=== PATIENT | female | born 1950 | race Caucasian/White ===

== ENCOUNTER → 2018-09-10 | Outpatient (CLI) | payer MEDICARE, OTHER ==
[~2018-09-10] MED LIST: AMLODIPINE BESY10 MG PO; ASPIRIN CHEW81 MG PO; ASPIRIN325 MG PO; COREG3.125 MG PO; COZAAR25 MG PO; DITROPAN XL5 MG PO; FENOFIBRATE145 MG PO; IRBESARTAN300 MG PO; LEVAQUIN500 MG PO; LEVEMIR100 UNIT/1 SQ; LIPITOR20 MG PO; METFORMIN HCL500 MG PO; NORVASC5 MG PO; NOVOLOG MI100 UNITS/ SQ; NOVOLOG100 UNIT/1 SC; PLAVIX75 MG PO; TYLENOL WITH C1 EACH PO; ZOFRAN ODT4 MG PO
--- NOTE | 2018-09-18 08:15 | Diagnostic Imaging Report ---
#[id number] - [id number] #BILATERAL DIGITAL SCREENING MAMMOGRAM WITH CAD: 09/10/2018 CLINICAL: Routine screening. Comparison is made to exam dated: 09/10/2013 mammogram - [facility] (Formerly [facility]). Current study contains 8 films. There are scattered fibroglandular elements in both breasts. Current study was also evaluated with a Computer Aided Detection (CAD) system. There is an irregular asymmetry in the right breast at 1 o'clock middle depth. This is best noted on the implant displacement views. The implants appear intact. Scattered benign appearing calcifications are present bilaterally. No other significant masses, calcifications, or other findings are seen in either breast. IMPRESSION: INCOMPLETE: NEEDS ADDITIONAL IMAGING EVALUATION The irregular asymmetry in the right breast is indeterminate. Additional views with possible ultrasound are recommended. The patient will be contacted by the Mammography Department to schedule this appointment. Magdi Shah Jr., D.O. cw/:09/17/2018 14:00:01 Lunch Counter Manager: Violette CHAPIN)(Princess), [facility] letter sent: Additional Imaging Needed Mammogram BI-RADS: 0 Indeterminate
== END ==
LOC: MAMMO 09:06
PROVIDERS: ATTEND Obstetrics & Gynecology
DX: Z12.31 Encounter for screening mammogram for malignant neoplasm of breast (principal)
CPT/HCPCS: 77067

== ENCOUNTER → 2018-10-10 | Outpatient (CLI) | payer MEDICARE, OTHER ==
--- NOTE | 2018-10-11 08:28 | Diagnostic Imaging Report ---
#[id number] - [id number] #UNILATERAL RIGHT DIGITAL DIAGNOSTIC MAMMOGRAM WITH SPOT COMPRESSION: 10/10/2018 Comparison is made to exam dated: 09/10/2018 mammogram - [facility]. Current study contains 2 films. There are scattered fibroglandular elements in the right breast. There are benign calcifications in the right breast. The density previously described appears to press out. No mass seen. No significant masses, calcifications, or other findings are seen in the breast. There has been no significant interval change. IMPRESSION: BENIGN There is no mammographic evidence of malignancy. A 1 year screening mammogram is recommended. The patient will be notified by letter of the results. Magdi Shah Jr., D.O. cw/:10/10/2018 12:33:36 [place]: Violette MATTHEWS(R)(M), [facility] letter sent: Normal Exam Mammogram BI-RADS: 2 Benign
== END ==
LOC: MAMMO 08:20
PROVIDERS: ATTEND Obstetrics & Gynecology
DX: N64.89 Other specified disorders of breast (principal)

== ENCOUNTER 2020-06-07 19:47 | Inpatient (IN) | payer MEDICARE, OTHER ==
[~2020-06-07] VITALS: Ht 152.4 cm; Wt 77.1 kg
[2020-06-07 20:15] LABS: BASOPHILS % 0.9 % (0.0-1.0); EOSINOPHILS # (AUTO) 0.1 (0.0-0.4); EOSINOPHILS % 2.1 % (0.0-6.0); HEMATOCRIT 38.5 % (34.2-44.1); HEMOGLOBIN 12.8 g/dL (12.0-16.0); LYMPHOCYTES # (AUTO) 0.9 (1.0-3.2); LYMPHOCYTES % 21.1 % (18.0-39.1); MEAN CORPUSCULAR HEMOGLOBIN 28.8 pg (28-32); MEAN CORPUSCULAR HGB CONC 33.2 g/dL (31-35); MEAN CORPUSCULAR VOLUME 86.5 fL (81-99); MONOCYTES # (AUTO) 0.4 (0.2-0.8); MONOCYTES % 9.9 % (4.4-11.3); NEUTROPHILS # (AUTO) 2.8 (2.1-6.9); NEUTROPHILS % 64.9 % (38.7-80.0); PLATELET COUNT 243 x10e3/uL (140-360); RED BLOOD COUNT 4.45 x10e6/uL (3.6-5.1); RED CELL DISTRIBUTION WIDTH 14.2 % (11.7-14.4)
[2020-06-07] MEDS ORDERED: NITROGLYCERIN 2% OINT 1 GM PKT TOP ONE (20:15)
[2020-06-07] MEDS ORDERED: ASPIRIN 81 MG CHEW TAB PO ONE (20:15)
[2020-06-07 20:29] LABS: INR 0.78; PARTIAL THROMBOPLASTIN TIME 27.5 seconds (23.8-35.5); PROTHROMBIN TIME 11.3 seconds (11.9-14.5)
--- NOTE | 2020-06-07 20:36 | Emergency Department Note ---
History of Present Illnes History of Present Illness Chief Complaint: Chest Pain History of Present Illness This is a 69 year old female PT AAOX3 PRESENTS TO THE ER C/O NON- RADIATING MIDSTERNAL CP ONSET THIS EVENING AFTER WAKING UP FROM NAP AROUND 1800; PT ALSO REPORTS SOB " FOR AWHILE"; PT REPORTS PAIN 5/10; NAD NOTED AT THIS TIME;. Historian: Patient Arrival Mode: Car Bread Racker Required: No Onset (how long ago): hour(s) (2) Location: CHEST Quality: PAIN Radiation: Reports non-radiation Severity: moderate (5/10) Onset quality: sudden Duration (how long): hour(s) (2) Timing of current episode: constant Progression: unchanged Chronicity: new Context: Denies recent illness, Denies recent surgery, Denies trauma/injury Relieving factors: none Exacerbating factors: none Associated symptoms: Reports denies other symptoms, Reports shortness of breath (FOR LAST COUPLE OF WEEKS) Past Medical/Family History Physician Review I have reviewed the patient's past medical and family history. Any updates have been documented here. Past Medical History Recent Fever: No Clinical Suspicion of Infectio: No New/Unexplained Change in Ment: No Past Medical History: Hypertension, Diabetes, UT, CAD, GERD, Hyperlipedemia Other Medical History: UT X2 Other Surgery: CARPAL TUNNEL LAP BAND CARDIAC STENT X2 Social History Smoking Cessation: Never Smoker Alcohol Use: None Any Illegal Drug Use: No Family History Family history of heart diseas: Yes Other family history HTN,DM,CAD Other Last Tetanus: UNK Review of Systems Review of Systems Constitutional: Reports no symptoms EENTM: Reports no symptoms Cardiovascular: Reports as per HPI Respiratory: Reports as per HPI Gastrointestinal: Reports no symptoms Genitourinary: Reports no symptoms Musculoskeletal: Reports no symptoms Integumentary: Reports no symptoms Neurological: Reports no symptoms Psychological: Reports no symptoms Endocrine: Reports no symptoms Hematological/Lymphatic: Reports no symptoms Physical Exam Related Data Allergies: Coded Allergies: No Known Allergies (Unverified , 05/06/11) Triage Vital Signs Vital Signs Date Time Temp Pulse Resp B/P (MAP) Pulse Ox O2 Delivery O2 Flow Rate FiO2 06/07/20 19:58 98.7 101 20 230/109 98 Room Air Vital signs reviewed: Yes Physical Exam CONSTITUTIONAL Constitutional: Present well-developed, Present well-nourished HENT HENT: Present normocephalic, Present atraumatic, Present oropharynx clear/moist, Present nose normal HENT L/R: Present left ext ear normal, Present right ext ear normal EYES Eyes: Reports PERRL, Reports conjunctivae normal NECK Neck: Present ROM normal PULMONARY Pulmonary: Present effort normal, Present breath sounds normal CARDIOVASCULAR Cardiovascular: Present regular rhythm, Present heart sounds normal, Present capillary refill normal, Present normal rate GASTROINTESTINAL Abdominal: Present soft, Present nontender, Present bowel sounds normal GENITOURINARY Genitourinary: Present exam deferred SKIN Skin: Present warm, Present dry MUSCULOSKELETAL Musculoskeletal: Present ROM normal NEUROLOGICAL Neurological: Present alert, Present oriented x 3, Present no gross motor or sensory deficits PSYCHOLOGICAL Psychological: Present mood/affect normal, Present judgement normal Results Laboratory Result Diagram: 06/07/202008 Laboratory Laboratory Tests Test 06/07/20 20:09 White Blood Count 4.36 x10e3/uL (4.8-10.8) Red Blood Count 4.45 x10e6/uL (3.6-5.1) Hemoglobin 12.8 g/dL (12.0-16.0) Hematocrit 38.5 % (34.2-44.1) Mean Corpuscular Volume 86.5 fL (81-99) Mean Corpuscular Hemoglobin 28.8 pg (28-32) Mean Corpuscular Hemoglobin Concent 33.2 g/dL (31-35) Red Cell Distribution Width 14.2 % (11.7-14.4) Platelet Count 243 x10e3/uL (140-360) Neutrophils (%) (Auto) 64.9 % (38.7-80.0) Lymphocytes (%) (Auto) 21.1 % (18.0-39.1) Monocytes (%) (Auto) 9.9 % (4.4-11.3) Eosinophils (%) (Auto) 2.1 % (0.0-6.0) Basophils (%) (Auto) 0.9 % (0.0-1.0) Neutrophils # (Auto) 2.8 (2.1-6.9) Lymphocytes # (Auto) 0.9 (1.0-3.2) Monocytes # (Auto) 0.4 (0.2-0.8) Eosinophils # (Auto) 0.1 (0.0-0.4) Basophils # (Auto) 0.0 (0.0-0.1) Absolute Immature Granulocyte (auto 0.05 x10e3/uL (0-0.1) Prothrombin Time 11.3 seconds (11.9-14.5) Prothromb Time International Ratio 0.78 Activated Partial Thromboplast Time 27.5 seconds (23.8-35.5) Sodium Level 141 mmol/L (136-145) Potassium Level 4.4 mmol/L (3.5-5.1) Chloride Level 107 mmol/L (98-107) Carbon Dioxide Level 19 mmol/L (22-29) Anion Gap 19.4 mmol/L (8-16) Blood Urea Nitrogen 38 mg/dL (7-26) Creatinine 1.38 mg/dL (0.57-1.11) Estimat Glomerular Filtration Rate 38 ML/MIN (60-) BUN/Creatinine Ratio 28 (6-25) Glucose Level 182 mg/dL (74-118) Calcium Level 11.1 mg/dL (8.4-10.2) Total Bilirubin 0.3 mg/dL (0.2-1.2) Aspartate Amino Transf (AST/SGOT) 15 IU/L (5-34) Alanine Aminotransferase (ALT/SGPT) 9 IU/L (0-55) Alkaline Phosphatase 105 IU/L (40-150) Creatine Kinase 107 IU/L (29-168) Creatine Kinase MB 2.00 ng/mL (0-5.0) Troponin I 0.033 ng/mL (0-0.300) B-Type Natriuretic Peptide 37.3 pg/mL (0-100) Total Protein 8.1 g/dL (6.5-8.1) Albumin 4.7 g/dL (3.5-5.0) Globulin 3.4 g/dL (2.3-3.5) Albumin/Globulin Ratio 1.4 (0.8-2.0) Laboratory Tests Test 06/07/20 20:09 White Blood Count 4.36 x10e3/uL (4.8-10.8) Red Blood Count 4.45 x10e6/uL (3.6-5.1) Hemoglobin 12.8 g/dL (12.0-16.0) Hematocrit 38.5 % (34.2-44.1) Mean Corpuscular Volume 86.5 fL (81-99) Mean Corpuscular Hemoglobin 28.8 pg (28-32) Mean Corpuscular Hemoglobin Concent 33.2 g/dL (31-35) Red Cell Distribution Width 14.2 % (11.7-14.4) Platelet Count 243 x10e3/uL (140-360) Neutrophils (%) (Auto) 64.9 % (38.7-80.0) Lymphocytes (%) (Auto) 21.1 % (18.0-39.1) Monocytes (%) (Auto) 9.9 % (4.4-11.3) Eosinophils (%) (Auto) 2.1 % (0.0-6.0) Basophils (%) (Auto) 0.9 % (0.0-1.0) Neutrophils # (Auto) 2.8 (2.1-6.9) Lymphocytes # (Auto) 0.9 (1.0-3.2) Monocytes # (Auto) 0.4 (0.2-0.8) Eosinophils # (Auto) 0.1 (0.0-0.4) Basophils # (Auto) 0.0 (0.0-0.1) Absolute Immature Granulocyte (auto 0.05 x10e3/uL (0-0.1) Lab results reviewed: Yes Imaging Imaging results reviewed: Yes Impressions Procedure: [id number] DX/CHEST SINGLE (PORTABLE) Exam Date: Exam Time: REPORT STATUS: Signed EXAMINATION: CHEST SINGLE (PORTABLE) INDICATION: ^chest pain ^Y COMPARISON: None available. FINDINGS: AP view TUBES and LINES: None. LUNGS: Lungs are well inflated. There is no evidence of pneumonia or pulmonary edema. PLEURA: No pleural effusion or pneumothorax. HEART AND MEDIASTINUM: The cardiomediastinal silhouette is unremarkable. BONES AND SOFT TISSUES: No acute osseous lesion. Soft tissues are unremarkable. UPPER ABDOMEN: No free air under the diaphragm. IMPRESSION: No acute thoracic abnormality. Signed by: Dr. Henri Dennis MD on 06/07/2020 8:41 PM Dictated By: HENRI DENNIS MD 40 Transcribed By: MIS on 06/07/202040 COPY TO: AREN DANIELS MD~ Procedures 12 Lead ECG Interpretation ECG Interpretation : ECG: ECG 1 Bread Racker: Interpreted by ED physician Date: Jun 07, 2020 Time: 19:55 Rhythm: sinus tachycardia Rate: tachycardia BPM: 102 QRS axis: normal ST segments normal: No (NONSPECIFIC ST CHANGES V2 AND V3) T waves normal: Yes T waves flattening: V6 Other findings: no other findings Clinical Impression: abnormal ECG Assessment & Plan Medical Decision Making [facility] PT WITH H/O UT, HTN, DM WITH CHEST PAIN FOR 2 HOURS CBC, CMP,CARDIAC ENZYMES, EKG, BNP, CXR, ORDERED TO EVAL FOR MYOCARDIAL INFARCTION, PNEUMONIA, ELECTROLYTE ABNORMALITY, NITROPASTE 1 INCH TO CHEST WALL ORDERED ASPIRIN 324 MG PO ORDERED I SPOKE WITH DR REYES AND DR LAMB, PLACE PT IN OBS Reassessment Reassessment time: 21:08 Reassessment PT STATES CHEST PAIN RESOLVED AT THIS TIME BUT THE SOB SENSATION SHE HAS BEEN HAVING FOR PAST COUPLE OF WEEKS IS STILL PRESENT Assessment & Plan Final Impression: (1) Chest pain Depart Disposition: ADMITTED Last Vital Signs Date Time Temp Pulse Resp B/P (MAP) Pulse Ox O2 Delivery O2 Flow Rate FiO2 06/07/20 19:58 98.7 101 20 230/109 98 Room Air Home Meds Active Scripts Clopidogrel Bisulfate* (PLAVIX) 75 Mg Tablet, 75 MG PO DAILY, #30 TAB Prov:TAMMY LAMB MD 06/06/15 Reported Medications Levofloxacin (LEVAQUIN) 500 Mg Tablet, 500 MG PO DAILY for 7 Days, TAB 01/26/16 Ondansetron (ZOFRAN ODT) 4 Mg Tab.rapdis, 4 MG PO Q8H PRN for NAUSEA, TAB 01/26/16 Oxybutynin Chloride (DITROPAN XL) 5 Mg Tab.er.24, 5 MG PO BID PRN for BLADDER SPASMS, #30 TAB 01/26/16 Acetaminophen With Codeine (TYLENOL WITH CODEINE #3 TABLET) 1 Each Tablet, 300 MG PO Q4HR PRN for PAIN, TAB 01/26/16 Insulin Detemir (LEVEMIR) 100 Unit/1 Ml Vial, 42 UNITS SQ HS 01/24/16 Insulin Aspart (NOVOLOG MIX 70-30 VIAL) 100 Units/Ml Ml, 18 UNITS SQ AC 01/24/16 Metformin Hcl (METFORMIN HCL) 500 Mg Tablet, 1000 MG PO BID, #60 TAB 01/24/16 Aspirin (ASPIRIN CHEW) 81 Mg Chew, 81 MG PO DAILY, #30 TAB 01/24/16 Atorvastatin Calcium (LIPITOR) 20 Mg Tablet, 20 MG PO HS, #30 TAB 01/27/15 Amlodipine Besylate (NORVASC) 5 Mg Tab, 5 MG PO DAILY, #30 TAB 01/27/15 Irbesartan (IRBESARTAN) 300 Mg Tablet, 300 MG PO DAILY 01/24/15 Medications in the ED Aspirin 324 mg ONCE ONCE PO ; Start 06/07/20 at 20:15; Stop 06/07/20 at 20:16; Status DC Nitroglycerin 1 gm ONCE ONCE TOP ; Start 06/07/20 at 20:15; Stop 06/07/20 at 20:16; Status DC AREN DANIELS MD Jun 07, 2020 20:36
[2020-06-07 20:39] LABS: ALBUMIN 4.7 g/dL (3.5-5.0); ALBUMIN/GLOBULIN RATIO 1.4 (0.8-2.0); ANION GAP 19.4 mmol/L (8-16); CALCIUM 11.1 mg/dL (8.4-10.2); CREATININE, SERUM 1.38 mg/dL (0.57-1.11); POTASSIUM 4.4 mmol/L (3.5-5.1)
--- NOTE | 2020-06-07 20:45 | Diagnostic Imaging Report ---
EXAMINATION: CHEST SINGLE (PORTABLE) INDICATION: ^chest pain ^Y COMPARISON: None available. FINDINGS: AP view TUBES and LINES: None. LUNGS: Lungs are well inflated. There is no evidence of pneumonia or pulmonary edema. PLEURA: No pleural effusion or pneumothorax. HEART AND MEDIASTINUM: The cardiomediastinal silhouette is unremarkable. BONES AND SOFT TISSUES: No acute osseous lesion. Soft tissues are unremarkable. UPPER ABDOMEN: No free air under the diaphragm. IMPRESSION: No acute thoracic abnormality. Signed by: Dr. Henri Milan MD on 06/07/2020 8:41 PM
[2020-06-07] MEDS ORDERED: ENOXAPARIN INJ 80 MG/0.8 ML SYR SC ONE (21:00)
[2020-06-07] MEDS ORDERED: SODIUM CHLORIDE FLUSH 10 ML SYR INJ PRN (21:15)
[2020-06-07] MEDS ORDERED: ONDANSETRON HCL INJ 2MG/ML 2ML 2 MG/ML VIAL IV PRN (21:15)
[2020-06-07] MEDS ORDERED: DEXTROSE 50% SYRINGE 50 ML IV PRN (21:15)
--- OUTSIDE RECORDS SUMMARY | 2020-06-07 21:18 | XMS REPORT | Clinical Summary ---
Author Author [facility] Address Unknown Phone Unavailable Care Team Providers Care Manager Night Name Role Phone Jeannie Whaley MD PCP Allergies Comments Active Allergy Reactions Severity Noted Date n/v Codeine GI 10/04/2019 Intolerance Medications End Date Status Medication Sig Dispensed Refills Start Date Active clopidogrel (PLAVIX) 75 Take 75 mg by 0 09/18/ 201 mg tablet mouth daily. 9 Active cholecalciferol, vitamin Take by 0 D3, (DIALYVITE VITAMIN D mouth. ORAL) Active insulin regular, human Inject 20 0 (NOVOLIN R REGULAR U-100 Units as INSULN INJ) directed 2 (two) times a day. Active carvedilol (COREG) 3.125 Take 25 mg by 0 MG tablet mouth 2 (two) times a day with meals. Active aspirin (ECOTRIN) 81 MG Take 81 mg by 0 enteric coated tablet mouth daily. Active atorvastatin (LIPITOR) 40 Take 40 mg by 0 MG tablet mouth daily. Active famotidine (PEPCID) 20 MG Take 20 mg by 0 tablet mouth 2 (two) times a day as needed for indigestion. Active nitroglycerin (NITROSTAT) Place 0.4 mg 0 0.4 MG SL tablet under the tongue every 5 (five) minutes as needed for chest pain. Active irbesartan (AVAPRO) 300 Take 300 mg 0 MG tablet by mouth nightly. 07/04/2019 Discontinued irbesartan (AVAPRO) 300 Take 300 mg 0 201 MG tablet by mouth 9 daily. 07/04/2019 Discontinued allopurinol (ZYLOPRIM) 300 mg. 0 01 300 MG tablet 8 07/04/2019 Discontinued metformin HCl (METFORMIN Take 1,000 mg 0 ORAL) by mouth 2 (two) times a day. 07/04/2019 Discontinued fexofenadine HCl (CAROL Take by 0 ORAL) mouth. 07/04/2019 Discontinued fenofibrate (TRICOR) 145 TAKE ONE (1) 3 08/21 MG tablet TABLET(S) BY 8 MOUTH DAILY. 07/04/2019 Discontinued ibuprofen (ADVIL,MOTRIN) Take 800 mg 0 800 MG tablet by mouth every 6 (six) hours as needed for mild pain. 07/04/2019 Discontinued ondansetron (ZOFRAN) 4 MG Take 1 tablet 20 tablet 0 tabletIndications: (4 mg total) 9 Dalia's deformity, by mouth right every 8 (eight) hours as needed for nausea or vomiting. 10/01/2019 Discontinued modafinil (PROVIGIL) 100 Take 100 mg 0 MG tablet by mouth daily. 10/04/2019 Discontinued (Therapy comple nichole) isosorbide dinitrate Take 40 mg by 0 (ISORDIL) 40 MG tablet mouth 3 (three) times a day. 10/04/2019 Discontinued (Stop Taking at Discharge) UNABLE TO FIND Med Name: 0 11/03/2019 HYDROcodone-acetaminophen Take 1-2 20 tablet 0 (NORCO) 5-325 mg per tablets by 0 tabletIndications: acute mouth every 6 pain (six) hours as needed for moderate pain or severe pain for up to 30 days .acute pain. 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 Encounters Care Team Description Date Type Specialty Steven Silva MD Litaker, Jennifer L, RD Obesity (BMI 30.0-34.9); History of removal of laparoscopic gastric banding device 11/14/2019 Consult Weight Management Ameena Marrero MA Obesity (BMI 30.0-34.9) (Primary Dx); History of removal of laparoscopic gastric banding device 10/29/2019 Orders Only General Surgery Steven Silva MD History of removal of laparoscopic gastr ic banding device (Primary Dx); Surgery follow-up examination 10/14/2019 Office Visit General Surgery Abhi Mcneil MD Mathew, Jibie Elizabeth 10/04/2019 Anesthesia General Surgery Event Steven Silva MD REMOVAL, GASTRIC BAND, LAPAROSCOPIC WITH TAP BLOCK 10/04/2019 Surgery General Surgery Steven Silva MD History of removal of laparoscopic gastr ic banding device (Primary Dx); Preop testing; History of laparoscopic adjustable gastric banding; Coronary artery disease involving ass[place] and [place] heart, angina presence unspecified, unspecified vessel or lesion type; Essential hypertension; Obstructive sleep apnea syndrome; Gastroesophageal reflux disease with esophagitis; Type 2 diabetes mellitus without complication, with long-term current use of insulin (HCC); Hyperlipidemia, unspecified hyperlipidemia type; Other complications of gastric band procedure 10/04/2019 [facility] General Surgery Encounter Steven Silva MD Preop testing (Primary Dx) 10/01/2019 Pre-Admit Pre-Admission Testi ng Testing Appointment Steven Silva MD History of laparoscopic adjustable gastr ic banding (Primary Dx); Coronary artery disease involving [place] and [place] heart, angina presence unspecified, unspecified vessel or lesion type; Essential hypertension; Obstructive sleep apnea syndrome; Gastroesophageal reflux disease with esophagitis; Type 2 diabetes mellitus without complication, with long-term current use of insulin (HCC); Hyperlipidemia, unspecified hyperlipidemia type 09/30/2019 Office Visit General Surgery Cheng Layton MD Dalia's deformity, right (Primary Dx) 08/29/2019 Office Visit Orthopedic Surgery Ava Marrero MA Dalia's deformity, right (Primary Dx) 08/28/2019 Orders Only Orthopedic Surgery Steven Silva MD History of laparoscopic adjustable gastr ic banding (Primary Dx); Coronary artery disease involving [place] and [place] heart, angina presence unspecified, unspecified vessel or lesion type; Essential hypertension; Obstructive sleep apnea syndrome; Gastroesophageal reflux disease with esophagitis; Type 2 diabetes mellitus without complication, with long-term current use of insulin (HCC) 08/19/2019 Office Visit General Surgery Steven Silva MD History of laparoscopic adjustable gastr ic banding; Essential hypertension; Coronary artery disease involving [place] and [place] heart, angina presence unspecified, unspecified vessel or lesion type 08/05/2019 Hospital Radiology Encounter Steven Silva MD History of laparoscopic adjustable gastr ic banding (Primary Dx); Essential hypertension; Coronary artery disease involving [place] and [place] heart, angina presence unspecified, unspecified vessel or lesion type; Type 2 diabetes mellitus without complication, with long-term current use of insulin (HCC); Obstructive sleep apnea syndrome 07/04/2019 Office Visit General Surgery after 06/07/2019 Family History Medical History Relation Name Comments Alcohol abuse Father Heart attack Father Heart disease Father Alcohol abuse Mother Aneurysm Mother Diabetes Mother Cancer Sister Relation Name Status Comments Father Mother Sister Social History Date Tobacco Use Types Packs/Day Years Used Never Smoker Smokeless Tobacco: Never Used Drinks/Week oz/Week Comments Alcohol Use No Alcohol Habits Answer Date Recorded How often do you have a drink containing alcohol? Never 11/05/2018 How many drinks containing alcohol do you have on No t asked a typical day when you are drinking? How often do you have six or more drinks on one Not asked occasion? Sex Assigned at Date Recorded Not on file Last Filed Vital Signs Reading Time Taken Comments Vital Sign 185/95 10/14/2019 9:25 AM RADIO INTERFERENCE EXPERT Blood Pressure 78 10/14/2019 9:25 AM RADIO INTERFERENCE EXPERT Pulse 36.7 C (98 F) 10/14/2019 9:25 AM RADIO INTERFERENCE EXPERT Temperature 20 10/04/2019 12:28 PM RADIO INTERFERENCE EXPERT Respiratory Rate 95% 10/04/2019 12:28 PM RADIO INTERFERENCE EXPERT Oxygen Saturation - - Inhaled Oxygen Concentration 74.8 kg (165 lb) 11/14/2019 11:16 AM RADIO INTERFERENCE EXPERT Weight 152.4 cm (5') 11/14/2019 11:16 AM RADIO INTERFERENCE EXPERT Height 32.22 11/14/2019 11:16 AM RADIO INTERFERENCE EXPERT Body Mass Index Plan of Treatment Health Maintenance Due Date Last Done Comments DIABETIC RETINAL EYE EXAM 1950 DIABETIC FOOT EXAM 1961 URINE MICROALBUMIN 1961 BREAST CANCER SCREENING 2001 COLONOSCOPY SCREENING 2001 SHINGLES VACCINES (#1) 2001 65+ PNEUMOCOCCAL VACCINE 2016 (1 of 1 - PPSV23) INFLUENZA VACCINE 04/11/2020 06/26/2007 Procedures Comments Procedure Name Priority Date/Time Associated Diag nosis AMB REFERRAL TO WEIGHT Routine 11/14/2019 Obes ity (BMI 30.0-34.9) MANAGEMENT - MEDICAL 12:56 PM RADIO INTERFERENCE EXPERT History of remov al of NUTRITION THERAPY laparoscopic gastric banding device POC GLUCOSE Routine 10/04/2019 11:22 AM RADIO INTERFERENCE EXPERT SURGICAL PATHOLOGY Routine 10/04/2019 REQUEST 9:23 AM RADIO INTERFERENCE EXPERT MS AN ELECTIVE Routine 10/04/2019 ENDOTRACHEAL AIRWAY 8:55 AM RADIO INTERFERENCE EXPERT REMOVAL, GASTRIC BAND, 10/04/2019 Other complica tions of LAPAROSCOPIC 8:17 AM RADIO INTERFERENCE EXPERT gastric band proced ure Hx of laparoscopic adjustable gastric banding Gastroesophageal reflux disease POC GLUCOSE Routine 10/04/2019 7:32 AM RADIO INTERFERENCE EXPERT ECG 12-LEAD Routine 10/01/2019 Preop testing 2:11 PM RADIO INTERFERENCE EXPERT HEMOGLOBIN A1C Routine 10/01/2019 Preop testing 2:00 PM RADIO INTERFERENCE EXPERT HC COMPLETE BLD COUNT Routine 10/01/2019 Preop te sting W/AUTO DIFF 2:00 PM RADIO INTERFERENCE EXPERT TYPE AND SCREEN Routine 10/01/2019 Preop testing 1:56 PM RADIO INTERFERENCE EXPERT ESTIMATED GFR Routine 10/01/2019 12:59 PM RADIO INTERFERENCE EXPERT BASIC METABOLIC PANEL Routine 10/01/2019 Preop te sting 12:59 PM RADIO INTERFERENCE EXPERT XR CALCANEUS 2+ VW RIGHT Routine 08/29/2019 Hag[place] nd's deformity, 10:07 AM RADIO INTERFERENCE EXPERT right ZZFL UGI W KUB Routine 08/05/2019 History of lapa roscopic 7:35 AM RADIO INTERFERENCE EXPERT adjustable gastric banding Essential hypertension Coronary artery disease involving [place] and [place] heart, angina presence unspecified, unspecified vessel or lesion type after 06/07/2019 Results * Ambulatory referral to Weight Management - Medical Nutrition Therapy (11/14/2019 12:56 PM RADIO INTERFERENCE EXPERT) * POC glucose (10/04/2019 11:22 AM RADIO INTERFERENCE EXPERT) Only the most recent of 2 results within the time period is included. POC glucose 207 (H) 65 - 99 mg/dL [place] Comment: YAZIDISM CLEAR Manager Developmental Name: [facility] Device ID: [id number] Specimen Performing Organization Address City/State/ZIP Code P sánchez Number [facility] DEPARTMENT [id number] [place] [address] [place], [place] [address] PATHOLOGY AND GENOMIC MEDICINE [place] [employer] CLEAR [address] [place] [address] [place] [address] [facility] * Surgical pathology request (10/04/2019 9:23 AM RADIO INTERFERENCE EXPERT) [facility] DEPARTMENT OF PATHOLOGY AND GENOMIC MEDICINE Surgical See link below for PDF Lab [facility] pathology Report DEPARTMENT OF report PATHOLOGY AND GENOMIC MEDICINE Result status This is Final Report for [facility] [id number] DEPARTMENT OF PATHOLOGY AND GENOMIC MEDICINE Specimen Performing Organization Address [facility] Code P sánchez Number [address] [place], [place] [address] PATHOLOGY AND GENOMIC MEDICINE * Airway (10/04/2019 8:55 AM RADIO INTERFERENCE EXPERT) Narrative Performed At Katya Last 10/04/2019 8:55 AM Airway Performed by: Katya Last Authorized by: Abhi Mcneil MD Location: OR Urgency: Elective Difficult Airway: No Anesthesiologist: Abhi Mcneil M D Resident/CRAB STEAMER/AA: Katya Last Performed by: resident/CRAB STEAMER/AA Preoxygenated with 100% O2: Yes C-spine Precautions Maintained Througho ut: Yes Mask Ventilation: Easy mask Final Airway Type: Endotracheal airwa y Final Endotracheal Airway: ETT Cuffed: Yes Technique Used: Direct laryngoscopy Devices/Methods Used in Placement: In tubating stylet Insertion Site: Oral Blade Type: Harsh Laryngoscope Blade/Videolaryngoscope Bl gabriela Size: 3 ETT Size (mm): 7.0 Cuff at minimum occlusion pressure: Yes Measured from: Lips ETT to Lips (cm): 21 Placement Verified by: CO2 detection, d irect visualization and equal breath sounds Laryngoscopic view: Grade IIb - view of arytenoids or posterior of glottis only Rapid Sequence Induction (RSI): No Modified RSI: No Number of Attempts at Approach: 1 * ECG 12 lead (10/01/2019 2:11 PM RADIO INTERFERENCE EXPERT) Ventricular 94 [facility] rate Atrial rate 94 [facility] MS interval 198 [facility] QRSD interval 94 [facility] QT interval 380 [facility] QTC interval 475 [facility] P axis 1 58 [facility] QRS axis 1 38 [facility] T wave axis 85 [facility] MUSE EKG impression Normal sinus rhythm-Septal [facility] MUSE infarct (cited on or before 04-DEC-2018)-Abnormal ECG-In automated comparison with ECG of 04-DEC-2018 11:59,-Vent. rate has increased BY 36 BPM-QT has lengthened- Specimen Narrative Performed At This result has an attachment that is n ot available. Performing Organization Address City/[facility] Code P sánchez Number [facility] MUSE [address] [place] [address] * CBC with platelet and differential (10/01/2019 2:00 PM RADIO INTERFERENCE EXPERT) WBC 5.23 4.50 - 11.00 k/uL [facility] RBC 4.21 4.20 - 5.50 m/uL [facility] HGB 12.2 12.0 - 16.0 g/dL [facility] HCT 37.7 37.0 - 47.0 % [facility] MCV 89.5 82.0 - 100.0 fL [facility] MCH 29.0 27.0 - 34.0 pg [facility] MCHC 32.4 31.0 - 37.0 g/dL [facility] RDW - SD 46.3 37.0 - 55.0 fL [facility] MPV 11.5 8.8 - 13.2 fL [facility] Platelet count 199 150 - 400 k/uL [facility] Nucleated RBC 0.00 /100 WBC [facility] Neutrophils 72.8 (H) 39.0 - 69.0 % [facility] Lymphocytes 15.3 (L) 25.0 - 45.0 % [facility] Monocytes 8.4 0.0 - 10.0 % [facility] Eosinophils 2.3 0.0 - 5.0 % [facility] Basophils 0.8 0.0 - 1.0 % [facility] Specimen Blood Performing Organization Address City/State/ZIP Code P sánchez Number [facility] DEPARTMENT [address] [place] [address] PATHOLOGY AND [facility] MEDICINE [address] * Hemoglobin A1c (10/01/2019 2:00 PM RADIO INTERFERENCE EXPERT) Hemoglobin A1C 7.0 (H) 4.0 - 5.6 % [place] Comment: JT JEFFERY HbA1c cutoffs for diagnosing [facility] diabetes: 4.0% - 5.6% = normal 5.7% - 6.4% = increased risk for diabetes (prediabetes)9 >=6.5% = diabetes9 Goals for glycemic control (ADA 2016) < 7.0% Target for non adults with diabetes. More or less stringent targets may be appropriate for individual patients. <7.5% Target for Children and adolescents with type 1 diabetes. Specimen Blood Performing Organization Address [facility] P sánchez Number [address] [place] [address] PATHOLOGY AND [facility] MEDICINE [address] * Type and screen (10/01/2019 1:56 PM RADIO INTERFERENCE EXPERT) ABO grouping O [facility] Rh type NEG [facility] Antibody screen NEG [place] (gel) [facility] Specimen Blood Performing Organization Address [facility] P sánchez Number [facility] DEPARTMENT [address] [place] [address] PATHOLOGY AND [facility] MEDICINE [address] * Estimated GFR (10/01/2019 12:59 PM RADIO INTERFERENCE EXPERT) Estimated GFR 58 (A) mL/min/1.73 m2 [place] Comment: YAZIDISM CLEAR [facility] Interpretation G1 >=90 Normal or high G2 60-89 Mildly decreased G3a 45-59 Mildly to moderately decreased G3b 30-44 Moderately to severely decreased G4 15-29 Severely decreased G5 <15 Kidney failure The eGFR was calculated using the Chronic Kidney Disease Epidemiology Collaboration (CKD-EPI) equation. Interpretation is based on recommendations of the National Kidney Foundation-Kidney Disease Outcomes Quality Initiative (NKF-KDOQI) published in 2014. Specimen Plasma specimen Performing Organization Address City/[facility] P sánchez Number [facility] DEPARTMENT OF [address] [place] [address] [place], [place] [address] PATHOLOGY AND GENOMIC MEDICINE [address] [place] [id number] [facility] * Basic metabolic panel (10/01/2019 12:59 PM RADIO INTERFERENCE EXPERT) Sodium 140 135 - 148 mEq/L [facility] Potassium 4.7 3.5 - 5.0 mEq/L [facility] Chloride 101 98 - 112 mEq/L [facility] CO2 23 (L) 24 - 31 mEq/L [facility] Anion gap 16@ANIO (H) 7 - 15 mEq/L [facility] BUN 31 (H) 8 - 23 mg/dL [facility] Creatinine 1.00 (H) 0.50 - 0.90 mg/dL [facility] Glucose 383 (H) 65 - 99 mg/dL [facility] Calcium 10.8 (H) 8.8 - 10.2 mg/dL [facility] Specimen Plasma specimen Performing Organization Address [facility] P sánchez Number [facility] DEPARTMENT [address] [place], [place] [address] PATHOLOGY AND GENOMIC MEDICINE [address] * XR Calcaneus 2+ Vw Right (08/29/2019 10:07 AM RADIO INTERFERENCE EXPERT) Specimen Narrative Performed At [facility] Status post Dalia surgery. No repea t calcifications are noted. Swelling of the Achilles tendon is appr eciated but improved. Performing Organization Address City/[facility] Code P sánchez Number [facility] [address] [place] [address] * FL UGI W KUB (08/05/2019 7:35 AM RADIO INTERFERENCE EXPERT) Specimen Narrative Performed At EXAMINATION: FL UGI W KUB [facility] CLINICAL HISTORY: Z98.84 Bariatric garcia rgery status, I10 Essential (primary) hypertension, Esophageal reflux COMPARISON: None. TECHNIQUE: UPPER GI SERIES was perfor med with barium. FLUOROSCOPIC TIME: 1 minute 12 second s Total number of fluoroscopic images: 22 IMPRESSION: Reconciliation Analyst radiograph of the abdomen demonst rates an indwelling gastric lap band. The Phi angle is 37 degrees. The subcutaneo us port reservoir has been disconnected/removed. Esophagus demonstrates normal contour, distention and motility. There is no hiatal hernia. There is no delay of contrast passage across the lap band into the stomach, no significant n arrowing/stricture of the stomach at the level of the band is seen. This suggest s that the band reservoir is decompressed. Below the band, gastric contour and dis tention are normal. There is normal emptying into the duodenum. No gastroesophageal reflux was observed . [id number] Procedure Note Hm Interface, Radiology Results Incoming - 08/05/2019 10:06 AM RADIO INTERFERENCE EXPERT EXAMINATION: FL UGI W KUB CLINICAL HISTORY: Z98.84 Bariatric surgery status, I10 Essential (primary) hypertension, Esophageal reflux COMPARISON: None. TECHNIQUE: UPPER GI SERIES was performed with barium. FLUOROSCOPIC TIME: 1 minute 12 seconds Total number of fluoroscopic images: 22 IMPRESSION: Reconciliation Analyst radiograph of the abdomen demonstrates an indwelling gastric lap band. The Phi angle is 37 degrees. The subcutaneous port reservoir has been disconnected/removed. Esophagus demonstrates normal contour, distention and motility. There is no hiatal hernia. There is no delay of contrast passage across the lap band into the stomach, no significant narrowing/stricture of the stomach at the level of the band is seen. This suggests that the band reservoir is decompressed. Below the band, gastric contour and distention are normal. There is normal emptying into the duodenum. No gastroesophageal reflux was observed. [id number] Performing Organization Address City/State/ZIP Code P sánchez Number [facility] [address] [place] [address] after 06/07/2019 Insurance Type Payer Benefit Subscriber ID Effective Phone Address Plan / Dates Group Medicare MEDICARE MEDICARE [id number] 2016- [place], PART A AND Present [place] B Commercial [employer] [id number] 2017-Raul hines Guarantor Name Account Relation to Date of Phone Billin g Address Type Patient Cecelia Mijares Personal/F Self 1950 [phone] [address] [facility] [place] ([place]) [place] [address] Advance Directives For more information, please contact: [phone] Patient Marine Biologist Explanation Type Date Recorded Advance Directives, Living Will and Medical Power of Bra[address] [employer]
--- OUTSIDE RECORDS SUMMARY | 2020-06-07 21:18 | XMS REPORT | Continuity of Care Document ---
Author Author [facility] t Organization [facility] Address [address] [place] [address] Phone Unavailable Care Team Providers Care Machine Shop Worker Name Role Phone Judd THOMAS, Harleen Dennis PCP January DANIELS Attphys Unavailable NILESH ZIEGLER P.AToy Attphys Unavailable ABEL SMITH M.D. Attphys Unavailable Jadon Silva MD Attphys January Morris RD Attphys Unavailable Janes YATES, Nannette Lindquist Attphys Unavailable Rowdy Mcneil MD Attphys Mone Last Attphys Calin THOMAS, Abhi Anand Attphys [phone] Ava Marrero MA Attphys Unavailable CHARLIE ABAD, VEGETABLE SCULLION Attphys Unavailable Altaf DORMAN Attphys Unavailable GRACIE SCOTT APRN Attphys Unavailable SU PATRICIO NP Attphys Unavailable EZEQUIEL SO P.A. Attphys Unavailable RUBEN PEÑALOZA M.D. Attphys Unavailable HANH FIGUEREDO NP Attphys Unavailable CHARLIE ABAD NP Attphys Unavailable JASON JACOBSON M.D. Attphys Unavailable DEISY LECHUGA P.A. Attphys Unavailable DEL BEST NP Attphys Unavailable BILL SILVA Admphyteresa Unavailable Payers Payer Name Policy Type Policy Number Effective Date Expiration Date S ource MEDICAREMEDICARE PART A AND [id number] 2015[id number] 2016 00:00:00 Enzo Castaneda MIN OF TERI OF [id number] 2016-PresentCommercia l [id number] 2017 00:00:00 Enzo Castaneda Problems Condition Name Condition Details Condition Category Status Onset Date Resolution Date Last Treatment Date Treating Clinician Comments Source History of removal of laparoscopic gastric banding dev ice History of removal of laparoscopic gastric banding device Disease Active 2019-10-04 00:00:00 Enzo Castaneda GERD (gastroesophageal reflux disease) GERD (gastroesophagea l reflux disease) Disease Active 2019-07-04 00:00:00 Enzo Castaneda History of laparoscopic adjustable gastric banding His tory of laparoscopic adjustable gastric banding Disease Active 2019-07-04 00:00:00 Enzo Castaneda Hypertension Hypertension Disease Active 2019-07-04 00:00:00 Enzo Castaneda Hyperlipidemia Hyperlipidemia Disease Active 2019-07-04 00:00:00 Enzo Castaneda CAD (coronary artery disease) CAD (coronary artery disease) Disease Active 2019-07-04 00:00:00 Enzo Castaneda Diabetes mellitus Diabetes mellitus Disease Active 2019-07-04 00:00:00 Enzo Castaneda Obstructive sleep apnea syndrome Obstructive sleep apnea syndrom e Disease Active 2019-07-04 00:00:00 [place] Dalia's deformity, right Dalia's deformity, right Disease Active 2018-11-05 00:00:[address] History of Diabetes Mellitus Without Complication Hist ory of Diabetes Mellitus Without Complication Problem Resolved Un [facility] History of cough History of cough Problem Resolved [facility] History of snoring History of snoring Problem Resolved [facility] History of Abnormal finding on urinalysis History of A bnormal finding on urinalysis Problem Resolved [place] [facility] History of Acute bronchitis due to infection History o f Acute bronchitis due to infection Problem Resolved [facility] History of Acute drug-induced gout of foot, unspecifie d laterality History of Acute drug-induced gout of foot, unspecified laterality Problem Resolved [facility] Gout Gout Problem Active [facility] History of Acute maxillary sinusitis, recurrence not s pecified History of Acute maxillary sinusitis, recurrence not specified Problem Resolved [facility] History of Acute recurrent maxillary sinusitis History of Acute recurrent maxillary sinusitis [facility] History of Acute upper respiratory infection History o f Acute upper respiratory infection Problem Resolved [facility] History of Acute UTI History of Acute UTI Problem Resolved [facility] History of contact dermatitis History of contact dermatitis Problem Resolved [facility] History of hyperlipidemia History of hyperlipidemia Problem Resolved [facility] Diabetes type 2, uncontrolled Diabetes type 2, uncontrolled Problem Active [facility] History of essential hypertension History of essential hypertens ion Problem Resolved [facility] History of hematuria History of hematuria Problem Resolved [facility] History of viral gastroenteritis History of viral gastroenteriti s Problem Resolved [facility] History of Intercostal pain History of Intercostal pain Problem Resolved [facility] Personal history of gout Personal history of gout Problem Resolved [facility] History of myocardial infarction History of myocardial infarctio n Problem Resolved [facility] Narcolepsy Narcolepsy Problem [facility] History of Noninfectious diarrhea History of Noninfectious diarr hea Problem Resolved [facility] History of Other fatigue History of Other fatigue Problem Resolved [facility] History of Pain, foot, left, chronic History of Pain, foot, left, chronic Problem Resolved [facility] History of Right foot pain History of Right foot pain Problem Resolved [facility] History of sciatica History of sciatica Problem Resolved [facility] History of Sciatica of right side associated with diso rder of lumbar spine History of Sciatica of right side associated with disorder of lumbar spine Problem Resolved [facility] History of sinusitis History of sinusitis Problem Resolved [facility] History of Swelling of foot joint, left History of Swelling of foot joint, left Problem Resolved [facility] Edema Edema Problem Active [facility] De Jesus neuroma, left De Jesus neuroma, left Problem Active [facility] Post herpetic neuralgia Post herpetic neuralgia Problem Active [facility] Bleeding risk due to aspirin Bleeding risk due to aspirin Problem Active [facility] Hypertriglyceridemia Hypertriglyceridemia Problem Active [facility] Other insomnia Other insomnia Problem Active [facility] Lumbar facet arthropathy Lumbar facet arthropathy Problem Active [facility] 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 Active [facility] 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 Problem Active [facility] Antiplatelet or antithrombotic long-term use Antiplate let or antithrombotic long-term use Problem Active [facility] Vitamin D deficiency Vitamin D deficiency Problem Active [facility] Hypercalcemia Hypercalcemia Problem Active [facility] Controlled type 2 diabetes mellitus Controlled type 2 diabetes m ellitus Problem Active [facility] Essential (primary) hypertension Essential (primary) hypertensio n Problem Active [facility] Hyperlipidemia Hyperlipidemia Problem Active [facility] Depressive disorder Depressive disorder Problem Active [facility] Acute sinusitis Acute sinusitis Problem Active [facility] Anxiety with depression Anxiety with depression Problem Active [facility] Obesity (BMI 30.0-34.9) Obesity (BMI 30.0-34.9) Problem Active [facility] Vaginitis Vaginitis Problem Active [facility] Allergies, Adverse Reactions, Alerts Allergy Name Allergy Type Status Severity Reaction(s) Onset Date Inacti ve Date Treating Clinician Comments Source Codeine Propensity to adverse reactions to drug Active GI Intolerance 2019-10-04 00:00:00 n/v [facility] Family History Family Member Diagnosis Comments Start Date Stop Date Source Unknown Family Member Family history of Stroke Syndrome Family Histor y [facility] Grandmother Family history of Heart Disease [facility] Grandmother Family history of Diabetes Mellitus [facility] Grandmother Family history of Hypertension [facility] Grandmother Family history of Pure Hypercholesterolemia [facility] Mother Family history of Heart Disease [facility] Mother Family history of Diabetes Mellitus [facility] Mother Family history of Hypertension [facility] Mother Family history of Pure Hypercholesterolemia [facility] Father Family history of Heart Disease [facility] Father Family history of Hypertension [facility] Father Family history of Pure Hypercholesterolemia [facility] Natural father Alcohol abuse [facility] Natural father Heart attack [facility] Natural father Heart disease [facility] Natural mother Alcohol abuse G[facility] Natural mother Aneurysm [place] [facility] Natural mother Diabetes [place] [facility] Natural sister Cancer [place] [facility] Social History Social Habit Start Date Stop Date Quantity Comments Source History SDOH Alcohol Std Drinks [facility] History SDOH Alcohol Binge [facility] Sex Assigned At Brian griff[place] [facility] Tobacco use and exposure 2019-10-14 00:00:00 2019-10-14 00:00:00 [place] morales used [place] Alcohol intake 2019-10-14 00:00:00 2019-10-14 00:00:00 Current non-drinker of alcohol (finding) Enzo Castaneda History SDOH Alcohol Frequency 2018-11-05 00:00:00 2018-11-05 00:00:0 0 1 Enzo Castaneda Smoking Status Start Date Stop Date Source Ex-smoker (finding) [facility] Never smoker Enzo Mancia t Medications Ordered Medication Name Filled Medication Name Start Date Stop Da te Current Medication? Ordering Clinician Indication Dosage Frequency Signature (SIG) Comments Components Source Nystatin 344302 UNIT/GM External Ointment Nystatin 100 000 UNIT/GM External Ointment 2020-05-12 00:00:00 Yes NILESH ZIEGLER P.A. Q0.3333D APPLY 2-3 TIMES DAILY TO AFFECTED AREA(S). [facility] Nystatin 524734 UNIT/GM External Powder Nystatin [id number] UNIT /GM External Powder 2020-05-12 00:00:00 Yes NILESH ZIEGLER P.A. Q 0.3333D APPLY 2-3 TIMES DAILY TO AFFECTED AREA(S). [facility] Vitamin D (Ergocalciferol) 1.25 MG (04167 UT) Oral Cap alecia Vitamin D (Ergocalciferol) 1.25 MG (96622 UT) Oral Capsule 2020-02-26 00:00:00 Yes ABEL SMITH M.D. take 1 cap PO once weekly [facility] cholecalciferol, vitamin D3, (DIALYVITE VITAMIN D ORAL) 2019-11-14 11:22:59 Yes Take by mouth. Enzo Bailey ethodi insulin regular, human (NOVOLIN R REGULAR U-100 INSULN INJ) 2019-11-14 11:22:59 Yes 20U Q.5D Inject 20 Units as dire cted 2 (two) times a day. Enzo Castaneda carvedilol (COREG) 3.125 MG tablet 2019-11-14 11:22:59 Yes 25mg Q.5D Take 25 mg by mouth 2 (two) times a day with meals. Enzo Castaneda aspirin (ECOTRIN) 81 MG enteric coated tablet 2019-11-14 11:22:5 9 Yes 81mg QD Take 81 mg by mouth daily. Karlie Castaneda atorvastatin (LIPITOR) 40 MG tablet 2019-11-14 11:22:59 Yes 40mg QD Take 40 mg by mouth daily. Enzo Castaneda famotidine (PEPCID) 20 MG tablet 2019-11-14 11:22:59 Yes 20mg Q.5D Take 20 mg by mouth 2 (two) times a day as needed for indigestion. Enzo Castaneda nitroglycerin (NITROSTAT) 0.4 MG SL tablet 2019-11-14 11:22:[address] 0.4 mg under the tongue every 5 (five) minutes a s needed for chest pain. Enzo Castaneda irbesartan (AVAPRO) 300 MG tablet 2019-11-14 11:22:59 Yes 300mg QD Take 300 mg by mouth nightly. Enzo Calvert st UNABLE TO FIND 2019-10-04 13:24:28 2019-10-04 00:00:00 No Med Name: Ezno Castaneda isosorbide dinitrate (ISORDIL) 40 MG tablet 2019 06:52:43 2019-10-04 00:00:00 No 40mg Q.[id number] Ta ke 40 mg by mouth 3 (three) times a day. Enzo Castaneda HYDROcodone-acetaminophen (NORCO) 5-325 mg per tablet 2019-10-04 00:00:00 2019-11-03 23:59:00 No acute pain 1{tbl} Q6H Take 1-2 tablets by mouth every 6 (six) hours as needed for moderate pain or severe pain for up to 30 days .acute pain. Enzo Castaneda modafinil (PROVIGIL) 100 MG tablet 2019-10-01 13:21:27 00:00:00 No 100mg QD Take 100 mg by mouth daily. Enzo Castaneda ibuprofen (ADVIL,MOTRIN) 800 MG tablet 2019-06-12 4 12:12:43 2019-07-04 00:00:00 No 800mg Q6H Take 800 mg by mouth every 6 (six) hours as needed for mild pain. Enzo Castaneda fexofenadine HCl (CARYL ORAL) 2019-07-04 12:12:39 00:00:00 No Take by mouth. Enzo cowan metformin HCl (METFORMIN ORAL) 2019-07-04 12:12:27 2019-07-04 00 :00:00 No 1000mg Q.5D Take 1,000 mg by mouth 2 (two) times a day. Enzo Castaneda ReliOn Insulin Syringe 31G X 15/64" 0.3 ML ReiOn Insu conrad Syringe 31G X 15/64" 0.3 ML 2019-03-12 00:00:00 Yes ABEL SMITH M.D. use to inject 3-5xs [facility] NovoLIN R ReliOn 100 UNIT/ML Injection Solution NovoLI N R ReliOn 100 UNIT/ML Injection Solution 2018-12-06 00:00:00 Yes ABEL SMITH M.D. inject 5-10 U SC q1/2AC [facility] ondansetron (ZOFRAN) 4 MG tablet 2018-12-04 00:00:00 2019-06 00:00:00 No Dalia's deformity, right 4mg Q8H Take 1 tablet (4 mg total) by mouth every 8 (eight) hours as needed for nausea or vomiting. Enzo Castaneda irbesartan (AVAPRO) 300 MG tablet 2018-09-19 00:00:00 2018 00:00:00 No 300mg QD Take 300 mg by mouth daily. Enzo Castaneda clopidogrel (PLAVIX) 75 mg tablet 2018-09-18 00:00:00 Yes 75mg QD Take 75 mg by mouth daily. Enzo Castaneda allopurinol (ZYLOPRIM) 300 MG tablet 2018-08-22 00:00: 00 2019-07-04 00:00:00 No 300mg 300 mg. Enzo Mancia t fenofibrate (TRICOR) 145 MG tablet 2018-08-21 00:00:00 201 05-21-24 00:00:00 No TAKE ONE (1) TABLET(S) BY MOUTH DAILY. Enzo MinayaOn Blood Glucose Test In Vitro Strip ReiOn Blood Glucose Test In Vitro Strip 2018-01-25 00:00:00 Yes ABEL SMITH M.D. Q0 .5D use to check BG at least 3xs daily [facility] NovoLIN N ReliOn 100 UNIT/ML Subcutaneous Suspension N ovoLIN N ReliOn 100 UNIT/ML Subcutaneous Suspension 2018-01-02 00:00:00 Yes ABEL JAMES M.D. inject 20 U in AM and 24 U in PM SC [facility] D 5000 125 MCG (5000 UT) Oral Capsule D 5000 125 MCG (5000 U T) Oral Capsule 2017-06-27 00:00:00 Yes ABEL SMITH M.D. take 1 tab daily [facility] Allopurinol 300 MG Oral Tablet Allopurinol 300 MG Oral Table t 2017-06-16 00:00:00 Yes GRACIE SCOTT APRN 1 QD TAKE 1 TABLET DAILY DIRECTED. [facility] Irbesartan 300 MG Oral Tablet Irbesartan 300 MG Oral Tablet 2012 00:00:00 Yes NILESH ONEILLOS P.A. 1 QD TAKE 1 TABLET DAILY. [facility] metFORMIN HCl - 500 MG Oral Tablet metFORMIN HCl - 500 MG Or al Tablet 2013-05-04 00:00:00 Yes ABEL SMITH M.D. Q0.5D TAKE 2 TABLET S BY MOUTH TWICE DAILY [facility]iley Aspirin 81 MG TABS Aspirin 81 MG TABS Yes 1 QD TA KE 1 TABLET DAILY. [facility] Clopidogrel Bisulfate 75 MG Oral Tablet Clopidogrel Bisulfat e 75 MG Oral Tablet Yes 1 QD TAKE 1 TABLET DAILY. [facility] Caryl CAPS Caryl CAPS Yes as needed [facility] Ibuprofen TABS Ibuprofen TABS Yes [facility] Carvedilol 12.5 MG Oral Tablet Carvedilol 12.5 MG Oral Tablet Yes 2 tabs BID [facility] Fenofibrate 145 MG Oral Tablet Fenofibrate 145 MG Oral Tablet Yes QD TAKE 1 TABLET DAILY WITH FOOD. [facility] Immunizations Ordered Immunization Name Filled Immunization Name Date Status Comments Source Influenza 2007-06-26 00:00:00 Completed [facility] Fluzone High-Dose 0.5 ML Intramuscular Suspension Prefilled Syri nge Unknown Completed [facility] Shingrix 50 MCG Intramuscular Suspension Reconstituted Unk nown Completed [facility] Vital Signs Vital Name Observation Time Observation Value Comments Source Systolic blood pressure 2020-05-12 10:52:00 148 mm[Hg] Loca tion: LUE; Position: Sitting [facility] Diastolic blood pressure 2020-05-12 10:52:00 72 mm[Hg] Loc ation: LUE; Position: Sitting [facility] Body height 2020-05-12 10:52:00 60 [in_us] [facility] Weight 2020-05-12 10:52:00 172.4375 [lb_av] [facility] Body mass index (BMI) [Ratio] 2020-05-12 10:52:00 33.68 kg/m2 [facility] Body temperature 2020-05-12 10:52:00 99 [degF] Method: Temporal [facility] Heart Rate 2020-05-12 10:52:00 89 /min [facility] Respiratory rate 2020-05-12 10:52:00 16 /min [facility] Systolic blood pressure 2020-02-13 11:27:00 167 mm[Hg] Loca tion: LUE; Position: Sitting [facility] Diastolic blood pressure 2020-02-13 11:27:00 89 mm[Hg] Loc ation: LUE; Position: Sitting [facility] Heart Rate 2020-02-13 11:27:00 69 /min Location: L Radial; Q uality: Normal [facility] Systolic blood pressure 2020-02-13 11:24:00 172 mm[Hg] Loca tion: LUE; Position: Sitting [facility] Diastolic blood pressure 2020-02-13 11:24:00 70 mm[Hg] Loc ation: LUE; Position: Sitting [facility] Heart Rate 2020-02-13 11:24:00 69 /min Location: L Radial; Q uality: Normal [facility] Body height 2020-02-13 11:24:00 60 [in_us] [facility] Weight 2020-02-13 11:24:00 169.5625 [lb_av] [facility] Body mass index (BMI) [Ratio] 2020-02-13 11:24:00 33.12 kg/m2 [facility] Body temperature 2020-02-13 11:24:00 97.8 [degF] Method: Oral [facility] Body height 2019-11-14 11:16:00 152.4 cm [facility] Body weight 2019-11-14 11:16:00 74.844 kg [place] [facility] BMI 2019-11-14 11:16:00 32.22 kg/m2 [place] Systolic blood pressure 2019-11-13 10:00:00 123 mm[Hg] Loca tion: LUE; Position: Sitting [facility] Diastolic blood pressure 2019-11-13 10:00:00 68 mm[Hg] Loc ation: LUE; Position: Sitting [facility] Body height 2019-11-13 10:00:00 60 [in_us] [facility] Weight 2019-11-13 10:00:00 162.5625 [lb_av] [facility] Body mass index (BMI) [Ratio] 2019-11-13 10:00:00 31.75 kg/m2 [facility] Heart Rate 2019-11-13 10:00:00 69 /min [facility] Systolic blood pressure 2019-10-24 10:13:00 158 mm[Hg] Loca tion: LUE; Position: Sitting [facility] Diastolic blood pressure 2019-10-24 10:13:00 82 mm[Hg] Loc ation: LUE; Position: Sitting [facility] Body height 2019-10-24 10:13:00 60 [in_us] [facility] Weight 2019-10-24 10:13:00 167.375 [lb_av] [facility] Body mass index (BMI) [Ratio] 2019-10-24 10:13:00 32.69 kg/m2 [facility] Body temperature 2019-10-24 10:13:00 98.4 [degF] Method: Oral [facility] Heart Rate 2019-10-24 10:13:00 69 /min Location: L Brachial Artery; [facility] O2 SAT 2019-10-24 10:13:00 97 % Source: RA [facility] Systolic blood pressure 2019-10-14 09:25:00 185 mm[Hg] [facility] Diastolic blood pressure 2019-10-14 09:25:00 95 mm[Hg] [facility] Heart rate 2019-10-14 09:25:00 78 /min [facility] Body temperature 2019-10-14 09:25:00 36.67 [place] Respiratory rate 2019-10-04 12:28:00 20 /min [place] Oxygen saturation in Arterial blood by Pulse oximetry 10-04 12:28:00 95 /min [facility] BP Systolic 2019-08-13 10:14:00 150 mm[Hg] Location: LOS; [place] on: Sitting [facility] BP Diastolic 2019-08-13 10:14:00 75 mm[Hg] Location: LUE; [place] on: Sitting [facility] Height 2019-08-13 10:14:00 60 [in_us] [facility] Weight 2019-08-13 10:14:00 163.25 [lb_av] [facility] Body Mass Index Calculated 2019-08-13 10:14:00 31.88 kg/m2 [facility] Heart Rate 2019-08-13 10:14:00 51 /min [facility] BP Systolic 2019-03-12 09:34:00 124 mm[Hg] Location: LUE; [place]: Sitting [facility] BP Diastolic 2019-03-12 09:34:00 63 mm[Hg] Location: LUE; [place]: Sitting [facility] Height 2019-03-12 09:34:00 60 [in_us] [facility] Weight 2019-03-12 09:34:00 160.125 [lb_av] [facility] Body Mass Index Calculated 2019-03-12 09:34:00 31.27 kg/m2 [facility] Heart Rate 2019-03-12 09:34:00 71 /min [facility] BP Systolic 2018-12-06 09:31:00 135 mm[Hg] Location: CATRACHITOE; [place]: Sitting [facility] BP Diastolic 2018-12-06 09:31:00 70 mm[Hg] Location: LUE; [place]: Sitting [facility] Height 2018-12-06 09:31:00 60 [in_us] [facility] Weight 2018-12-06 09:31:00 158.0 [lb_av] [facility] Body Mass Index Calculated 2018-12-06 09:31:00 30.86 kg/m2 [facility] Heart Rate 2018-12-06 09:31:00 63 /min [facility] BP Systolic 2018-11-28 10:47:00 130 mm[Hg] Location: LUE; [place]: Sitting [facility] BP Diastolic 2018-11-28 10:47:00 75 mm[Hg] Location: LUE; [place]: Sitting [facility] Height 2018-11-28 10:47:00 60 [in_us] [facility] Weight 2018-11-28 10:47:00 162.375 [lb_av] [facility] Body Mass Index Calculated 2018-11-28 10:47:00 31.71 kg/m2 [facility] Temperature 2018-11-28 10:47:00 98.4 [degF] Method: Temporal [facility] Heart Rate 2018-11-28 10:47:00 74 /min Location: L Brachial Artery; [facility] Respiration Rate 2018-11-28 10:47:00 16 /min [facility] BP Systolic 2018-08-22 09:42:00 150 mm[Hg] Location: RUE; [place]: Sitting [facility] BP Diastolic 2018-08-22 09:42:00 77 mm[Hg] Location: RUE; [place] on: Sitting [facility] Height 2018-08-22 09:42:00 60 [in_us] [facility] Weight 2018-08-22 09:42:00 147.5625 [lb_av] [facility] Body Mass Index Calculated 2018-08-22 09:42:00 28.82 kg/m2 [facility] Temperature 2018-08-22 09:42:00 98.5 [degF] Method: Temporal [facility] Heart Rate 2018-08-22 09:42:00 77 /min [facility] Respiration Rate 2018-08-22 09:42:00 14 /min [facility] BP Systolic 2018-07-17 10:53:00 150 mm[Hg] Location: LUE; Positi on: Sitting [facility] BP Diastolic 2018-07-17 10:53:00 70 mm[Hg] Location: LUE; Positi on: Sitting [facility] BP Systolic 2018-07-17 10:04:00 166 mm[Hg] Location: LUE; Positi on: Sitting [facility] BP Diastolic 2018-07-17 10:04:00 72 mm[Hg] Location: LUE; Positi on: Sitting [facility] Height 2018-07-17 10:04:00 60 [in_us] [facility] Weight 2018-07-17 10:04:00 148.375 [lb_av] [facility] Body Mass Index Calculated 2018-07-17 10:04:00 28.98 kg/m2 [facility] Heart Rate 2018-07-17 10:04:00 57 /min [facility] BP Systolic 2018-04-16 13:06:00 159 mm[Hg] Location: LOS; Positi on: Sitting [facility] BP Diastolic 2018-04-16 13:06:00 70 mm[Hg] Location: CATRACHITOE; Positi on: Sitting [facility] Height 2018-04-16 13:06:00 60 [in_us] [facility] Weight 2018-04-16 13:06:00 160.1875 [lb_av] [facility] Body Mass Index Calculated 2018-04-16 13:06:00 31.28 kg/m2 [facility] Heart Rate 2018-04-16 13:06:00 80 /min [facility] BP Systolic 2018-02-23 14:44:00 138 mm[Hg] Location: CATRACHITOE; Positi on: Sitting [facility] BP Diastolic 2018-02-23 14:44:00 76 mm[Hg] Location: CATRACHITOE; Positi on: Sitting [facility] Heart Rate 2018-02-23 14:44:00 72 /min Location: L Brachial Artery; [facility] BP Systolic 2018-02-23 13:24:00 144 mm[Hg] Location: LOS; Positi on: Sitting [facility] BP Diastolic 2018-02-23 13:24:00 71 mm[Hg] Location: LOS; Positi on: Sitting [facility] Height 2018-02-23 13:24:00 60 [in_us] [facility] Weight 2018-02-23 13:24:00 159.1875 [lb_av] [facility] Body Mass Index Calculated 2018-02-23 13:24:00 31.09 kg/m2 [facility] Temperature 2018-02-23 13:24:00 97 [degF] Method: Temporal [facility] Heart Rate 2018-02-23 13:24:00 72 /min Location: L Brachial Artery; [facility] Respiration Rate 2018-02-23 13:24:00 16 /min [facility] Systolic 2017-12-27 11:31:00 151 mm[Hg] Location: LOS; Positi on: Sitting [facility] BP Diastolic 2017-12-27 11:31:00 81 mm[Hg] Location: LOS; Positi on: Sitting [facility] Height 2017-12-27 11:31:00 60 [in_us] [facility] Weight 2017-12-27 11:31:00 161.1875 [lb_av] [facility] Body Mass Index Calculated 2017-12-27 11:31:00 31.48 kg/m2 [facility] Heart Rate 2017-12-27 11:31:00 65 /min [facility] BP Systolic 2017-09-28 11:52:00 136 mm[Hg] Location: LOS; Positi on: Sitting [facility] BP Diastolic 2017-09-28 11:52:00 76 mm[Hg] Location: LOS; Positi on: Sitting [facility] Height 2017-09-28 11:52:00 60 [in_us] [facility] Weight 2017-09-28 11:52:00 169.375 [lb_av] [facility] Body Mass Index Calculated 2017-09-28 11:52:00 33.08 kg/m2 [facility] Heart Rate 2017-09-28 11:52:00 80 /min [facility] BP Systolic 2017-09-18 10:31:00 152 mm[Hg] Location: LOS; Positi on: Sitting [facility] BP Diastolic 2017-09-18 10:31:00 82 mm[Hg] Location: LOS; Positi on: Sitting [facility] Height 2017-09-18 10:31:00 60 [in_us] [facility] Weight 2017-09-18 10:31:00 171.375 [lb_av] [facility] Body Mass Index Calculated 2017-09-18 10:31:00 33.47 kg/m2 [facility] Temperature 2017-09-18 10:31:00 97.7 [degF] Method: Temporal [facility] Heart Rate 2017-09-18 10:31:00 89 /min Location: L Brachial Artery; [facility] Respiration Rate 2017-09-18 10:31:00 16 /min Quality: Normal U [facility] Procedures Procedure Date / Time Performed Performing Clinician Sourc e [QL] CMP W/EGFR 2020-03-02 00:00:00 [place] [facility] [QL] LIPID PANEL 2020-03-02 00:00:00 [facility] [QL] VITAMIN D, 25-HYDROXY, LC/MS/MS 2020-03-02 00:00:00 [facility] [QL] CMP W/EGFR 2020-02-13 00:00:00 [facility] [QL] LIPID PANEL 2020-02-13 00:00:00 [facility] [QL] MICROALBUMIN, RANDOM URINE (W/CREATININE) 2020-02-13 00:00: 00 [facility] [QL] CBC (INCLUDES DIFF/PLT) 2020-02-13 00:00:00 [facility] [QL] VITAMIN D, 25-HYDROXY, LC/MS/MS 2020-02-13 00:00:00 [facility] [QL] TSH, 3RD GENERATION W/REFLEX TO FT4 2020-02-13 00:00:00 [facility] AMB REFERRAL TO WEIGHT MANAGEMENT - MEDICAL NUTRITI ON THERAPY 2019-11-14 12:56:31 Bill Silva POC GLUCOSE 2019-10-04 11:22:00 Bill Silva SURGICAL PATHOLOGY REQUEST 2019-10-04 09:23:00 Bill Silva ND AN ELECTIVE ENDOTRACHEAL AIRWAY 2019-10-04 08:55:14 Rosemarie Last REMOVAL, GASTRIC BAND, LAPAROSCOPIC 2019-10-04 08:17:00 Bill Silva POC GLUCOSE 2019-10-04 07:32:00 Bill Silva ECG 12-LEAD 2019-10-01 14:11:13 iBll Silva HC COMPLETE BLD COUNT W/AUTO DIFF 2019-10-01 14:00:00 Bill Silva HEMOGLOBIN A1C 2019-10-01 14:00:00 Bill Silva TYPE AND SCREEN 2019-10-01 13:56:00 Bill Silva BASIC METABOLIC PANEL 2019-10-01 12:59:00 Bill Silva ESTIMATED GFR 2019-10-01 12:59:00 Bill Silva XR CALCANEUS 2+ VW RIGHT 2019-08-29 10:07:53 Cheng Layton [QL] MICROALBUMIN, RANDOM URINE (W/CREATININE) 2019-08-13 00:00 :00 [facility] ZZFL UGI W KUB 2019-08-05 07:35:00 Bill Silva History of Achilles tendon surgery 2019-01-11 00:00:00 [facility] History of Ostectomy of calcaneus for spur 2018-12-12 00:00:00 [facility] [QL] URINALYSIS, COMPLETE W/REFLEX TO CULTURE 2018-11-28 00:00: 00 [facility] [O] Flu Test (in Office ) 2018-08-22 00:00:00 [facility] CMP W/EGFR 2018-07-17 00:00:00 [facility] [QL] VITAMIN D, 25-HYDROXY, LC/MS/MS 2018-07-17 00:00:00 [facility]] LIPID PANEL 2018-04-16 00:00:00 [facility] [QL] CMP W/EGFR 2018-04-16 00:00:00 [facility] [QL] MICROALBUMIN, RANDOM URINE (W/CREATININE) 2018-04-16 00:00 :00 [facility] [QL] CMP W/EGFR 2017-12-27 00:00:00 [facility] [QL] MICROALBUMIN, RANDOM URINE (W/CREATININE) 2017-12-27 00:00 :00 [facility] [[facility]] LIPID PANEL 2017-12-27 00:00:00 [facility] [QL] VITAMIN D, 25-HYDROXY, LC/MS/MS 2017-06-27 00:00:00 [facility] [QL] CALCIUM, IONIZED 2017-06-27 00:00:00 Unive [facility] History of Laparosc Restrictive Proc Adjustable Gastric Band Murphy cement [facility] History of [facility] of Bladder Cyst[facility] History of Breast Surgery Removal Of Mammary Implant Bilateral [facility] History of Cystoscopy With Removal Of Ureteral Calculus [facility] History of Neuroplasty Median Nerve At Carpal Tunnel [facility] History of Complete Colonoscopy [facility] History of Renal [facility]otripsy [facility] History of Breast Surgery Enlargement Procedure [facility] History of Breast Surgery Reduction Procedure [facility] History of Abdominoplasty Univer [facility] History of Exchange Of Intraocular Lens [facility] History of Cath Placement Of Stent 1 [facility] History of Laparoscopic adjustable gastric banding [facility] Plan of Care Planned Activity Planned Date Details Comments Source Future Scheduled Test 2020-05-11 00:00:00 [QL] CMP W/EGFR [c ode = [QL] CMP W/EGFR] [facility] Future Scheduled Test 2020-05-11 00:00:00 [QL] LIPID PANEL [ code = [QL] LIPID PANEL] [facility] Future Scheduled Test 2020-05-11 00:00:00 [QL] VITAMIN D, 25 -HYDROXY, LC/MS/MS [code = [QL] VITAMIN D, 25-HYDROXY, LC/MS/MS] [facility] Future Scheduled Test 2020-04-11 00:00:00 INFLUENZA VACCINE [code = INFLUENZA VACCINE] [facility] Diagnostic Test Pending 2018-10-01 00:00:00 [QLH] CMP W/EGFR [code = [QLH] CMP W/EGFR] [facility] Diagnostic Test Pending 2018-10-01 00:00:00 [QLH] VITAMIN D, 25-HYDROXY, LC/MS/MS [code = [QLH] VITAMIN D, 25-HYDROXY, LC/MS/MS] [facility] Diagnostic Test Pending 2018-07-02 00:00:00 [QLH] LIPID PANE L [code = [QLH] LIPID PANEL] [facility] ns Diagnostic Test Pending 2018-07-02 00:00:00 [QLH] CMP W/EGFR [code = [QLH] CMP W/EGFR] [facility] Diagnostic Test Pending 2018-07-02 00:00:00 [QLH] MICROALBUM IN, RANDOM URINE (W/CREATININE) [code = 61225] [facility] Diagnostic Test Pending 2018-07-02 00:00:00 [QLH] LIPID PANE L [code = [QLH] LIPID PANEL] [facility] Diagnostic Test Pending 2018-07-02 00:00:00 [QLH] CMP W/EGFR [code = [QLH] CMP W/EGFR] [facility] Diagnostic Test Pending 2018-07-02 00:00:00 [QLH] MICROALBUM IN, RANDOM URINE (W/CREATININE) [code = 95083] [facility] Future Scheduled Test 2016 00:00:00 65+ PNEUMOCOCCAL V ACCINE (1 of 1 - PPSV23) [code = 65+ PNEUMOCOCCAL VACCINE (1 of 1 - PPSV23)] [facility] Scheduled Test 2001 00:00:00 BREAST CANCER SCRE ENING [code = BREAST CANCER SCREENING] [facility] Scheduled Test 2001 00:00:00 COLONOSCOPY SCREEN ING [code = COLONOSCOPY SCREENING] [facility] Scheduled Test 2001 00:00:00 SHINGLES VACCINES (#1) [code = SHINGLES VACCINES (#1)] [facility] Scheduled Test 1961 00:00:00 DIABETIC FOOT EXAM [code = DIABETIC FOOT EXAM] [facility] Scheduled Test 1961 00:00:00 URINE MICROALBUMIN [code = URINE MICROALBUMIN] [facility] Scheduled Test 1951 00:00:00 DIABETIC RETINAL E YE EXAM [code = DIABETIC RETINAL EYE EXAM] [facility] Appointment 2020-07-01 13:30:00 Dilan ROMAN, [facility] Encounters Start Date/Time End Date/Time Encounter Type Admission Type Attendi [facility] Care Department Encounter ID Source 2020-05-12 10:45:00 2020-05-12 10:45:00 Appointment; NILESH ZIEGLER P.A. CAMPOS, BERTHA, P[facility]A. [facility] [address] [id number] [facility] 2020-02-13 11:30:2020-02-13 11:30:00 Appointment; ABEL MSITH M.D. NASSIF, JULIA, M.D. [facility], [address] [id number] [facility] 2019-12-30 10:00:00 2019-12-30 10:00:00 Appointment; NILESH ZIEGLER P.A. CAMPOS, BERTHA, [facility] [id number] [facility] 2019-11-14 00:00:2019-11-14 00:00:00 Outpatient ADRIÁN SILVA [facility] [id number] [facility] 2019-11-13 10:00:00 2019-11-13 10:00:00 Appointment; ABEL SMITH M.D. NASSIF, JULIA, M.D. [facility], [address] [id number] [facility] 2019-10-24 10:15:2019-10-24 10:15:00 Appointment; NILESH ZIEGLER P.A. CAMPOS, BERTHA, P.A. [facility] [address] [id number] [facility] 2019-10-04 00:00:00 2019-10-04 00:00:00 Outpatient ADRIÁN SILVA E [facility] [id number] [facility] 2019-08-13 10:00:00 2019-08-13 10:00:00 Appointment; ABEL SMITH M.D. NASSIF, JULIA, M.D. [facility], [address] [id number] [facility] 2019-08-05 00:00:00 2019-08-05 00:00:00 Outpatient SILVAADRIÁN MARIN [facility] [id number] [facility] 2019-03-12 09:30:00 2019-03-12 09:30:00 Appointment; ABEL SMITH M.D. NASSIF, JULIA, M.D. [facility], [address] [id number] [facility] 2018-12-06 09:30:00 2018-12-06 09:30:00 Appointment; ABEL SMITH M.D. NASSIF, JULIA, M.D. [facility] [address] [id number] [facility] 2018-11-28 10:45:00 2018-11-28 10:45:00 Appointment; CHARLIE ABAD AP RN TRAN, THUY, APRN [facility] [id number] [facility] 2018-08-22 09:30:00 2018-08-22 09:30:00 Appointment; GRACIE SCOTT A PRN SAXE, KAILA, APRN [facility] [id number] [facility] 2018-07-17 10:00:00 2018-07-17 10:00:00 Appointment; ABEL SMITH M.D. NASSIF, JULIA, M.D. [facility] [address] [id number] [facility] 2018-04-16 13:00:00 2018-04-16 13:00:00 Appointment; ABEL SMITH M.D. NASSIF, JULIA, M.D. [facility] [address] [id number] [facility] 2018-02-23 13:30:00 2018-02-23 13:30:00 Appointment; SU DAO NP TEJADA-FOSTER, NORMA, NP [facility] [id number] [facility] 2017-12-27 11:30:00 2017-12-27 11:30:00 Appointment; ABEL SMITH M.D. NASSIF, JULIA, M.D. [facility] [address] [id number] [facility] 2017-09-28 11:30:00 2017-09-28 11:30:00 Appointment; ABEL SMITH M.D. NASSIF, JULIA, M.D. [facility] [id number] [facility] 2017-09-18 10:30:00 2017-09-18 10:30:00 Appointment; NILESH ZIEGLER P.A. CAMPOS, BERTHA, P.A. [facility] [id number] [facility] 2017-09-07 08:00:00 2017-09-07 08:00:00 Appointment; NILESH ZIEGLER P.A. CAMPOS, BERTHA, P.A. [facility] [id number] [facility] 2017-06-28 10:00:00 2017-06-28 10:00:00 Appointment; ABEL SMITH M.D. NASSIF, JULIA, M.D. [facility] [id number] [facility] 2017-06-01 13:30:00 2017-06-01 13:30:00 Appointment; JONI SO P.A. SPOONER, JOSEPH, P.A. [facility] [id number] [facility] 2017-05-19 08:45:00 2017-05-19 08:45:00 Appointment; RUBEN PEÑALOZA M.D. LI-YUNG HING, ANDREW, M.D. [facility] UTP [id number] [facility] 2017-04-17 11:00:00 2017-04-17 11:00:00 Appointment; JONI SO P.A. SPOONER, JOSEPH, P.A. [facility]TP [id number] [facility] 2017-04-17 08:00:00 2017-04-17 08:00:00 Appointment; RUBEN PEÑALOZA M.D. LI-YUNG HING, ANDREW, M.D. [facility] UTP [id number] [facility] 2017-04-03 10:00:00 2017-04-03 10:00:00 Appointment; JONI SO P.A. SPOONER, JOSEPH, P.A. [facility] UTP [id number] [facility] 2017-03-15 11:00:00 2017-03-15 11:00:00 Appointment; JONI SO P.A. SPOONER, JOSEPH PReji GARCIA UTP [id number] [facility] 2017-02-24 11:15:00 2017-02-24 11:15:00 Appointment; NILESH ZIEGLER P.A. CAMPOS, BERTHA, P.A. [facility] UTP [id number] [facility] 2017-01-25 11:30:00 2017-01-25 11:30:00 Appointment; ABEL SMITH M.D. NASSIF, JULIA, M.D. UTP UTP [id number] [facility] 2016-12-01 12:45:00 2016-12-01 12:45:00 Appointment; NILESH ZIEGLER P.A. CAMPOS, BERTHA, PToyAToy UTP UTP [id number] [facility] 2016-10-27 11:15:00 2016-10-27 11:15:00 Appointment; NILESH ZIEGLER P.A. CAMPOS, BERTHA, P.A. UTP UTP [id number] [facility] 2016-10-24 14:30:00 2016-10-24 14:30:00 Appointment; ABEL SMITH M.D. NASSIF, JULIA, M.D. UTP UTP [id number] [facility] 2016-08-03 10:30:00 2016-08-03 10:30:00 Appointment; ROBERT FIGUEREDO NP HOANG, CHRISTINA, NP UTP UTP [id number] [facility] 2016-05-23 08:30:00 2016-05-23 08:30:00 Appointment; ABEL SMITH M.D. NASSIF, JULIA, M.D. UTP UTP [id number] [facility] 2016-04-21 10:30:00 2016-04-21 10:30:00 Appointment; NILESH ZIEGLER P.A. CAMPOS, BERTHA, P.A. UTP UTP [id number] [facility] 2016-03-26 10:15:00 2016-03-26 10:15:00 Appointment; CHARLIE ABAD NP TRAN, THUY, NP UTP UTP [id number] [facility] 2016-03-17 09:15:00 2016-03-17 09:15:00 Appointment; NILESH ZIEGLER P.A. CAMPOS, BERTHA, P.A. UTP UTP [id number] [facility] 2016-02-01 08:00:00 2016-02-01 08:00:00 Appointment; ABEL SMITH M.D. NASSIF, JULIA M.D. UTP UTP [id number] [facility] 2016-01-04 09:30:00 2016-01-04 09:30:00 Appointment; NILESH ZIEGLER P.A. CAMPOS, BERTHA, P.A. UTP UTP [id number] [facility] 2015-11-30 09:15:00 2015-11-30 09:15:00 Appointment; NILESH ZIEGLER P.A. CAMPOS, BERTHA, P.A. UTP UTP [id number] [facility] 2015-11-27 10:15:00 2015-11-27 10:15:00 Appointment; NILESH ZIEGLER P.A. CAMPOS, BERTHA, P.A. UTP UTP [id number] [facility] 2015-11-16 11:00:00 2015-11-16 11:00:00 Appointment; JASON JACOBSON M.D. SHACKELFORD, JAMES, M.D. UTP UTP [id number] [facility] 2015-11-02 08:00:00 2015-11-02 08:00:00 Appointment; ABEL SMITH M.D. NASSIF, JULIA, M.D. UTP UTP [id number] [facility] 2015-10-26 10:30:00 2015-10-26 10:30:00 Appointment; NILESH ZIEGLER P.A. CAMPOS, BERTHA, P.A. UTP UTP [id number] [facility] 2015-10-07 13:45:00 2015-10-07 13:45:00 Appointment; DEISY LECHUGA P.A. CRUZ, LETICIA PJose. UTP UTP [id number] [facility] 2015-08-26 13:00:00 2015-08-26 13:00:00 Appointment; DEL BEST N P BECK, SHERI, NP UTP UTP [id number] [facility] Results Test Description Test Time Test Comments Results Result Comments Source CHEST SINGLE (PORTABLE) 2020-06-07 20:41:00 [place] [address] Patient Name: ALEX ALMONTE MR #: [id number] : 1950 Age/Sex: 69/F Req #: [id number] [facility] Physician: Ordered by: AREN DANIELS MD Report #: [id number] Location: ER Room/Bed: Procedure: [id number] DX/CHEST SINGLE (PORTABLE) Exam Date: Exam Time: REPORT STATUS: Signed EXAMINATION: CHEST SINGLE (PORTABLE) INDICATION: chest pain Y COMPARISON: None available. FINDINGS: AP view TUBES and LINES: None. LUNGS: Lungs are well inflated. There is no evidence of pneumonia or pulmonary edema. PLEURA: No pleural effusion or pneumothorax. HEART AND MEDIASTINUM: The cardiomediastinal silhouette is unremarkable. BONES AND SOFT TISSUES: No acute osseous lesion. Soft tissues are unremarkable. UPPER ABDOMEN: No free air under the diaphragm. IMPRESSION: No acute thoracic abnormality. Signed by: Dr. Nery Dennis MD on 06/07/2020 8:41 PM Dictated By: NERY DENNIS MD 40 Transcribed By: MIS on 06/07/202040 COPY TO: AREN DANIELS MD [QL] LIPID PANEL 2020-05-12 08:18:00 Test Item CHOLESTEROL, TOTAL; Above High Threshold (test code = 2093-3) 391 m g/dl <200 HDL CHOLESTEROL; Below Low Threshold (test code = 2085-9) 39 mg/dl > OR = 50 TRIGLYCERIDES; Above High Threshold (test code = 2571-8) 1509 mg/dl <150 Results verified by repeat analysis on dilution. If a non-fasting specimen was collected, considerrepeat triglyceride testing on a fasting specimenif clinically indicated. Rogelio et al. J. of Clin. Lipidol. 2015;9:129-169. There is increased risk of pancreatitis when the triglyceride concentration is very high (> or = 500 mg/dL, especially if > or = 1000 mg/dL). Rogelio et al. J. of Clin. Lipidol. 2015;9:129-169. LDL-CHOLESTEROL (test code = 07434-3) See Comment LDL cholesterol not calculated. Triglyceride levelsgreater than 400 mg/dL invalidate calculated LDL results. Reference range: <100 Desirable range <100 mg/dL for primary prevention; <70 mg/dL for patients with CHD or diabetic patients with > or = 2 CHD risk factors. LDL-C is now calculated using the Brenden-Ivory calculation, which is a validated novel method providing better accuracy than the Friedewald equation in the estimation of LDL-C. Brenden SS et al. CHARLIE. 2013;310(19): 2061- 2068 (http://education.Circalit/faq/KVB688) CHOL/HDLC RATIO (test code = CHOL/HDLC RATIO) 10.0 {CALC} <5.0 NON HDL CHOLESTEROL (test code = NON HDL CHOLESTEROL) 352 {MG/DL C AL} <130 Non-HDL level > or = 220 is very high and may indicate genetic familial hypercholesterolemia (FH). Clinical assessment and measurement of blood lipid levels should be considered for all first-degree relatives of patients with an FH diagnosis. For patients with diabetes plus 1 major ASCVD risk factor, treating to a non-HDL-C goal of <100 mg/dL (LDL-C of <70 mg/dL) is considered a therapeutic option. [facility][QL] CMP [id number] 08:18:00* Test Item Value Reference Range Interpretation Comments GLUCOSE; Above High Threshold (test code = 1547-9) 118 mg/dl 65- 99 Fasting reference interval For someone without known diabetes, a glucose valuebetween 100 and 125 mg/dL is consistent withprediabetes and should be confirmed with afollow-up test. UREA NITROGEN (BUN) (test code = UREA NITROGEN (BUN)) 38 mg/dl 7-25 CREATININE (test code = CREATININE) 1.11 mg/dl 0.50-0.99 For patients >49 years of age, the reference limitfor Creatinine is approximately 13% higher for peopleidentified as -Croatian. eGFR NON-AFR. JAMAICAN (test code = eGFR NON-AFR. JAMAICAN) 51 {ML/MIN/1.7} > OR = 60 eGFR (test code = eGFR ) 59 {ML/MIN/1.7} > OR = 60 BUN/CREATININE RATIO (test code = BUN/CREATININE RATIO) 34 {CALC} 6-22 SODIUM (test code = SODIUM) 138 mmol/L 135-146 N POTASSIUM (test code = POTASSIUM) 4.5 mmol/L 3.5-5.3 N CHLORIDE (test code = CHLORIDE) 106 mmol/L 98-110 N CARBON DIOXIDE (test code = CARBON DIOXIDE) 22 mmol/L 20-32 N CALCIUM (test code = CALCIUM) 9.9 mg/dl 8.6-10.4 N PROTEIN, TOTAL (test code = PROTEIN, TOTAL) 6.6 g/dl 6.1-8.1 N ALBUMIN (test code = ALBUMIN) 4.0 g/dl 3.6-5.1 N GLOBULIN (test code = GLOBULIN) 2.6 {G/DL CALC} 1.9-3.7 N ALBUMIN/GLOBULIN RATIO (test code = ALBUMIN/GLOBULIN RATIO) 1.5 {CALC} 1.0-2.5 N BILIRUBIN, TOTAL; Normal (test code = 59340-6) 0.5 mg/dl 0.2-1.2 N ALKALINE PHOSPHATASE (test code = ALKALINE PHOSPHATASE) 67 u/l 37-153 N AST; Normal (test code = 1916-6) 14 u/l 10-35 N ALT; Normal (test code = 1742-6) 9 u/l 6-29 N [facility][QL] VITAMIN D, 25-HYDROXY, LC/MS/[id number] 08:18:00* Test Item Value Reference Range Interpretation Comments VITAMIN D,25-OH,TOTAL,IA (test code = VITAMIN D,25-OH,TOTAL,IA) 21 ng/ml 30-100 Vitamin D Status 25-OH Vitamin D : Deficiency: <20 ng/mLInsufficiency: 20 - 29 ng/mLOptimal: > or = 30 ng/mL For 25-OH Vitamin D testing on patients on D2-supplementation and patients for whom quantitation of D2 and D3 fractions is required, the [facility]25-OH VIT D, (D2,D3), LC/MS/MS is recommended: order code 59235 (patients >2yrs).See Note 1 Note 1 For additional information, please refer to http://education.Circalit/faq/SLO330 (This link is being provided for informational/educational purposes only.) [facility][] LIPID [id number] 08:23:00* Test Item Value Reference Range Interpretation Comments CHOLESTEROL, TOTAL; Above High Threshold (test code = 2093-3) 332 m g/dl <200 HDL CHOLESTEROL; Below Low Threshold (test code = 5-9) 42 mg/dl > OR = 50 TRIGLYCERIDES; Above High Threshold (test code = 2571-8) 1131 mg/dl <150 Results verified by repeat analysis on dilution. If a non-fasting specimen was collected, considerrepeat triglyceride testing on a fasting specimenif clinically indicated. Rogelio et al. J. of Clin. Lipidol. 2015;9:129-169. There is increased risk of pancreatitis when the triglyceride concentration is very high (> or = 500 mg/dL, especially if > or = 1000 mg/dL). Mercado et al. J. of Clin. Lipidol. 2015;9:129-169. LDL-CHOLESTEROL (test code = 56372-1) See Comment LDL cholesterol not calculated. Triglyceride levelsgreater than 400 mg/dL invalidate calculated LDL results. Reference range: <100 Desirable range <100 mg/dL for primary prevention; <70 mg/dL for patients with CHD or diabetic patients with > or = 2 CHD risk factors. LDL-C is now calculated using the Brenden-Ivory calculation, which is a validated novel method providing better accuracy than the Friedewald equation in the estimation of LDL-C. Brenden STAFFORD et al. CHARLIE. 2013;310(19): 2061- 2068 (http://education.Circalit/faq/TGP029) CHOL/HDLC RATIO (test code = CHOL/HDLC RATIO) 7.9 {CALC} <5.0 NON HDL CHOLESTEROL (test code = NON HDL CHOLESTEROL) 290 {MG/DL C AL} <130 Non-HDL level > or = 220 is very high and may indicate genetic familial hypercholesterolemia (FH). Clinical assessment and measurement of blood lipid levels should be considered for all first-degree relatives of patients with an FH diagnosis. For patients with diabetes plus 1 major ASCVD risk factor, treating to a non-HDL-C goal of <100 mg/dL (LDL-C of <70 mg/dL) is considered a therapeutic option. [facility][QL] MICROALBUMIN, RANDOM URINE (W/CREATININE) 2020-02-17 08:23:00* Test Item Value Reference Range Interpretation Comments CREATININE, RANDOM URINE (test code = CREATININE, RANDOM URI NE) 112 mg/dl 20-275 N MICROALBUMIN (test code = MICROALBUMIN) 41.8 mg/dl N Results verified by repeat analysis on dilution. Reference RangeNot established MICROALBUMIN/CREATININE RATIO, RANDOM UR INE (test code = MICROALBUMIN/CREATININE RATIO, RANDOM URINE) 373 {MCG/MG CRE} <30 The ADA d efines abnormalities in albuminexcretion as follows: Category Result (mcg/mg creatinine) Normal <30Microalbuminuria 30-299 Clinical albuminuria > OR = 300 The ADA recommends that at least two of threespecimens collected within a 3-6 month period beabnormal before considering a patient to bewithin a diagnostic category. [facility][QL] CMP W/[id number] 08:23:00* Test Item Value Reference Range Interpretation Comments GLUCOSE; Above High Threshold (test code = 1547-9) 182 mg/dl 65- 99 Fasting reference interval For someone without known diabetes, a glucosevalue >125 mg/dL indicates that they may havediabetes and this should be confirmed with afollow- up test. UREA NITROGEN (BUN) (test code = UREA NITROGEN (BUN)) 50 mg/dl 7-25 CREATININE (test code = CREATININE) 1.19 mg/dl 0.50-0.99 For patients >49 years of age, the reference limitfor Creatinine is approximately 13% higher for peopleidentified as -Croatian. eGFR NON-AFR. JAMAICAN (test code = eGFR NON-AFR. JAMAICAN) 47 {ML/MIN/1.7} > OR = 60 eGFR (test code = eGFR ) 54 {ML/MIN/1.7} > OR = 60 BUN/CREATININE RATIO (test code = BUN/CREATININE RATIO) 42 {CALC} 6-22 SODIUM (test code = SODIUM) 137 mmol/L 135-146 N POTASSIUM (test code = POTASSIUM) 5.0 mmol/L 3.5-5.3 N CHLORIDE (test code = CHLORIDE) 106 mmol/L 98-110 N CARBON DIOXIDE (test code = CARBON DIOXIDE) 20 mmol/L 20-32 N CALCIUM (test code = CALCIUM) 10.3 mg/dl 8.6-10.4 N PROTEIN, TOTAL (test code = PROTEIN, TOTAL) 7.0 g/dl 6.1-8.1 N ALBUMIN (test code = ALBUMIN) 4.4 g/dl 3.6-5.1 N GLOBULIN (test code = GLOBULIN) 2.6 {G/DL CALC} 1.9-3.7 N ALBUMIN/GLOBULIN RATIO (test code = ALBUMIN/GLOBULIN RATIO) 1.7 {CALC} 1.0-2.5 N BILIRUBIN, TOTAL; Normal (test code = 59192-8) 0.4 mg/dl 0.2-1.2 N ALKALINE PHOSPHATASE (test code = ALKALINE PHOSPHATASE) 81 u/l 37-153 N AST; Normal (test code = 1916-6) 14 u/l 10-35 N ALT; Normal (test code = 1742-6) 7 u/l 6-29 N [facility][QL] CBC (INCLUDES DIFF/PLT)2020-02-17 08:23:00* Test Item Value Reference Range Interpretation Comments WHITE BLOOD CELL COUNT (test code = WHITE BLOOD CELL COUNT) 4.6 {Thousand/u} 3.8-10.8 N RED BLOOD CELL COUNT (test code = RED BLOOD CELL COUNT) 4.12 {Million/uL} 3.80-5.10 N HEMOGLOBIN; Normal (test code = 95816-0) 12.1 g/dl 11.7-15.5 N HEMATOCRIT; Normal (test code = 4544-3) 36.3 % 35.0-45.0 N MCV; Normal (test code = 787-2) 88.1 fL 80.0-100.0 N MCHC; Normal (test code = 23133-8) 33.3 g/dl 32.0-36.0 N RDW; Normal (test code = 788-0) 13.7 % 11.0-15.0 N PLATELET COUNT; Normal (test code = 777-3) 213 {Thousand/u} 140-400 N MPV; Normal (test code = 38817-3) 11.5 fL 7.5-12.5 N ABSOLUTE NEUTROPHILS (test code = ABSOLUTE NEUTROPHILS) 2972 {cells/uL} 7336-9344 N ABSOLUTE LYMPHOCYTES (test code = ABSOLUTE LYMPHOCYTES) 1003 {cells/uL} 850-3900 N ABSOLUTE MONOCYTES (test code = ABSOLUTE MONOCYTES) 465 {cells/uL} 200-950 N ABSOLUTE EOSINOPHILS (test code = ABSOLUTE EOSINOPHILS) 120 {cells/ uL} 15-500 N ABSOLUTE BASOPHILS (test code = ABSOLUTE BASOPHILS) 41 {cells/uL} 0 -200 N NEUTROPHILS (test code = NEUTROPHILS) 64.6 % N LYMPHOCYTES (test code = LYMPHOCYTES) 21.8 % N MONOCYTES; Normal (test code = 50822-4) 10.1 % N EOSINOPHILS; Normal (test code = 92450-9) 2.6 % N BASOPHILS; Normal (test code = 40186-3) 0.9 % N [facility][QL] TSH, 3RD GENERATION W/REFLEX TO [id number] 08:23:00* Test Item Value Reference Range Interpretation Comments TSH, 3RD GENERATION W/REFLEX TO FT4 (reymundo t code = TSH, 3RD GENERATION W/REFLEX TO FT4) 3.08 {MIU/L} 0.40-4.50 N [facility][QL] VITAMIN D, 25-HYDROXY, LC/MS/[id number] 08:23:00* Test Item Value Reference Range Interpretation Comments VITAMIN D,25-OH,TOTAL,IA (test code = VITAMIN D,25-OH,TOTAL,IA) 16 ng/ml 30-100 Vitamin D Status 25-OH Vitamin D : Deficiency: <20 ng/mLInsufficiency: 20 - 29 ng/mLOptimal: > or = 30 ng/mL For 25-OH Vitamin D testing on patients on D2-supplementation and patients for whom quantitation of D2 and D3 fractions is required, the [facility](TM)25-OH VIT D, (D2,D3), LC/MS/MS is recommended: order code 35929 (patients >2yrs).See Note 1 Note 1 For additional information, please refer to http://education.Systems Integration.Wedding Reality/faq/NDU769 (This link is being provided for informational/educational purposes only.) [facility]2020-02-13 11:25:00* Test Item Value Reference Range Interpretation Comments Glucose POC Lifescan (test code = Glucose POC Lifescan) 82 [facility][O] Hemoglobin A1c (in office)2020-02-13 11:25:00 * Test Item Value Reference Range Interpretation Comments HEMOGLOBIN A1c (test code = 4548-4) 7.3 [facility]2019-11-13 10:12:00* Test Item Value Reference Range Interpretation Comments Glucose POC Lifescan (test code = Glucose POC Lifescan) 127 [facility][O] Hemoglobin A1c (in office)2019-11-13 10:12:00 * Test Item Value Reference Range Interpretation Comments HEMOGLOBIN A1c (test code = 4548-4) 7.5 [facility]iciansS[facility] pathology [id number] 16:27:54* Test Item Value Reference Range Interpretation Comments Case number (test code = 9483938) [id number] Surgical pathology report (test code = 2255) See link below for PDF Lab Report Result status (test code = 7055165) This is Final Report for [id number] [facility] [id number] 11:24:50* Test Item Value Reference Range Interpretation Comments POC glucose (test code = 49230-1) 207 mg/dL 65-99 H Theatrical Performer Name: iMguel Aggarwal ID: [id number] Lab Interpretation (test code = 75152-9) Abnormal [facility]ZqogxngmkIdtacu2604-28-64 08:55:14Katya Last 10/04/2019 8:55 AMAirwayPerformed by: Katya LastAuthorized by: Abhi Mcneil MD Location: ORUrgency: ElectiveDifficult Airway: No Anesthesiologist: Abhi Mcneil MDResijenit/SENIOR ELECTRICAL CONTROLS ENGINEER/AA: Katya LastPerformed by: resident/SENIOR ELECTRICAL CONTROLS ENGINEER/AAPreoxygenated with 100% O2: Yes C-spine Precautions Maintained Throughout: Yes Mask Ventilation: Easy maskFinal Airway Type: Endotracheal airwayFinal Endotracheal Airway: ETTCuffed: Yes Technique Used: Direct laryngoscopyDevices/Methods Used in Placement: Intubating styletInsertion Site: OralBlade Type: MacintoshLaryngoscope Blade/Videolaryngoscope Blade Size: 3ETT Size (mm): 7.0Cuff at minimum occlusion pressure: Yes Measured from: LipsETT to Lips (cm): 21Placement Verified by: CO2 detection, direct visualization and equal breath sounds Laryngoscopic view: Grade IIb - view of arytenoids or posterior of glottis onlyRapid Sequence Induction (RSI): No Modified RSI: No Number of Attempts at Approach: 1[facility] MethodistHemoglobin [id number] 15:27:10* Test Item Value Reference Range Interpretation Comments Hemoglobin A1C (test code = 65757-4) 7.0 % 4-5.6 H HbA1c cutoffs for diagnosing diabetes:4.0% - 5.6% = normal5.7% - 6.4% = increased risk for diabetes (prediabetes)9>=6.5% = dbrgjgnn1Jkttz for glycemic control (ADA 2016)< 7.0% Target for non adults with diabetes. More or less stringent targets may be appropriate for individual patients. <7.5% Target for Children and adolescents with type 1 diabetes. Lab Interpretation (test code = 69599-4) Abnormal [place] MethodistType and [id number] 15:22:00* Test Item Value Reference Range Interpretation Comments ABO grouping (test code = 883-9) O Rh type (test code = 02280-9) NEG Antibody screen (gel) (test code = 890-4) NEG [place] MethodistBasic metabolic [id number] 14:53:06* Test Item Value Reference Range Interpretation Comments Sodium (test code = 2951-2) 140 135- 148 mEq/L Potassium (test code = 2823-3) 4.7 3.5- 5.0 mEq/L Chloride (test code = 2075-0) 101 98- 112 mEq/L CO2 (test code = 2027-9) 23 24- 31 mEq/L L Anion gap (test code = 82229-3) 16@ANIO 7- 15 mEq/L H BUN (test code = 3094-0) 31 mg/dL 8-23 H Creatinine (test code = 2160-0) 1.00 mg/dL 0.5-0.9 H Glucose (test code = 2345-7) 383 mg/dL 65-99 H Calcium (test code = 95548-4) 10.8 mg/dL 8.8-10.2 H Lab Interpretation (test code = 08970-5) Abnormal [facility] MethodistEstimated [id number] 14:53:05* Test Item Value Reference Range Interpretation Comments Estimated GFR (test code = 5488) 58 mL/min/1.73 m2 A Catergory Units InterpretationG1 >=90 Normal or highG2 60-89 Mildly aikmqqdkaB2i 45-59 Mildly to moderately lmpsnmudtE5p 30-44 Moderately to severely decreasedG4 15-29 Severely decreasedG5 <15 Kidney failureThe eGFR was calculated using the Chronic Kidney Disease Epidemiology Collaboration (CKD-EPI) equation. Interpretation is based on recommendations of the National Kidney Foundation-Kidney Disease Outcomes Quality Initiative (NKF-KDOQI) published in 2014. Lab Interpretation (test code = 60427-7) Abnormal [facility] MethodistECG 12 [id number] 14:40:59* Test Item Value Reference Range Interpretation Comments Ventricular rate (test code = 253) 94 Atrial rate (test code = 255) 94 ND interval (test code = 266) 198 QRSD interval (test code = 260) 94 QT interval (test code = 264) 380 QTC interval (test code = 265) 475 P axis 1 (test code = 267) 58 QRS axis 1 (test code = 268) 38 T wave axis (test code = 270) 85 EKG impression (test code = 273) Normal sinus rhythm-S eptal infarct (cited on or before 04-DEC-2018)-Abnormal ECG-In automated comparison with ECG of 04-DEC-2018 11:59,-Vent. rate has increased BY 36 BPM-QT has lengthened- [place] MethodistCBC with platelet and gtksrwruavvz8623-24-25 14:37:08* Test Item Value Reference Range Interpretation Comments WBC (test code = 72448-0) 5.23 4.50- 11.00 k/uL RBC (test code = 87413-4) 4.21 m/uL 4.2-5.5 HGB (test code = 718-7) 12.2 g/dL 12-16 HCT (test code = 4544-3) 37.7 % 37-47 MCV (test code = 787-2) 89.5 fL 82-100 MCH (test code = 785-6) 29.0 pg 27-34 MCHC (test code = 786-4) 32.4 g/dL 31-37 RDW - SD (test code = 87164-8) 46.3 fL 37-55 MPV (test code = 13750-6) 11.5 fL 8.8-13.2 Platelet count (test code = 00336-5) 199 150- 400 k/uL Nucleated RBC (test code = 72651-0) 0.00 /100 WBC Neutrophils (test code = 05437-2) 72.8 % 39-69 H Lymphocytes (test code = 84963-7) 15.3 % 25-45 L Monocytes (test code = 20148-3) 8.4 % 0-10 Eosinophils (test code = 15429-3) 2.3 % 0-5 Basophils (test code = 88593-5) 0.8 % 0-1 Lab Interpretation (test code = 49628-1) Abnormal [facility][QLH] MICROALBUMIN, RANDOM URINE (W/CREATININE)2019-08-13 11:10:01* Test Item Value Reference Range Interpretation Comments Urine Microalbumin (test code = Urine Microalbumin) 235.0 mg/L No established reference range. U Creatinine (test code = 2161-8) 64.30 mg/dl No established reference range. Urine Microalbuming Creatinine Ratio; Ab ove High Threshold (test code = 20348-6) 365.5 mg/g <=30.0 [facility][O] Hemoglobin A1c (in office)2019-08-13 10:15:00 * Test Item Value Reference Range Interpretation Comments HEMOGLOBIN A1c (test code = 4548-4) 7.3 [facility]iciansGl[facility] ([facility] In Office)2019-08-13 10:14:00* Test Item Value Reference Range Interpretation Comments Glucose POC Lifescan (test code = Glucose POC Lifescan) 104 [facility]iciansFL HADLEY W [id number] 10:03:06Hm Interface, Radiology Results - 08/05/2019 10:06 AM CSTEXAMINATION: TAMARA TELLOBCLINICAL HISTORY: Z98.84 Bariatric surgery status, I10 Essential (primary) hypertension, Esophageal refluxCOMPARISON: None.TECHNIQUE: UPPER GI SERIES was performed with barium.FLUOROSCOPIC TIME: 1 minute 12 secondsTotal number of fluoroscopic images: 22IMPRESSION:Administration Clerk radiograph of the abdomen demonstrates an indwelling gastric lap band. The Phi angle is 37 degrees. The subcutaneous port reservoir has been disconnected/removed.Esophagus demonstrates normal co ntour, distention and motility.There is no hiatal hernia. There is no delay of c ontrast passage across the lap band into the stomach, no significant narrowing/s tricture of the stomach at the level of the band is seen. This suggests that the band reservoir is decompressed.Below the band, gastric contour and distention a re normal. There is normal emptying into the duodenum.No gastroesophageal reflux was observed.[id number] MethodistGlucose (Point of Care In Office) 2019-03-12 09:35:00* Test Item Value Reference Range Interpretation Comments Glucose POC Lifescan (test code = Glucose POC Lifescan) 124 [facility][O] Hemoglobin A1c (in office)2019-03-12 09:35:00 * Test Item Value Reference Range Interpretation Comments HEMOGLOBIN A1c (test code = 4548-4) 6.7 [facility][O] Hemoglobin A1c (in office)2018-12-06 09:32:00 * Test Item Value Reference Range Interpretation Comments HEMOGLOBIN A1c (test code = 4548-4) 7.5 [facility]2018-12-06 09:32:00* Test Item Value Reference Range Interpretation Comments Glucose POC Lifescan (test code = Glucose POC Lifescan) 118 [facility][O] Urine Dipstick (In Office)2018-11-28 10:56:00 * Test Item Value Reference Range Interpretation Comments Glucose (test code = Glucose) 100 A LEUKOCYTES (test code = LEUKOCYTES) ++ A NITRITE; Normal (test code = 01535-2) Negative N UROBILINOGEN; Normal (test code = 77903-3) Negative N PROTEIN; Abnormal (test code = 29636-0) Trace A pH (test code = pH) 5 URINE BLOOD; Normal (test code = 04173-5) Negative N SPECIFIC GRAVITY (test code = 2965-2) 1.020 KETONES; Normal (test code = 10732-1) Negative N BILIRUBIN; Normal (test code = 28772-1) Negative N COLOR URINE; Normal (test code = 5778-6) Yellow N [facility]] URINALYSIS, COMPLETE W/REFLEX TO CULTURE 2018-11-28 00:00:00* Test Item Value Reference Range Interpretation Comments COLOR; Normal (test code = 5778-6) YELLOW YELLOW N APPEARANCE (test code = APPEARANCE) CLOUDY CLEAR A SPECIFIC GRAVITY; Normal (test code = 2965-2) 1.019 1.001-1. 035 N PH; Normal (test code = 2756-5) < OR = 5.0 5.0-8.0 N GLUCOSE; Abnormal (test code = 1547-9) TRACE NEGATIVE A BILIRUBIN; Normal (test code = 85277-9) NEGATIVE NEGATIVE N KETONES; Normal (test code = 66903-0) NEGATIVE NEGATIVE N OCCULT BLOOD; Normal (test code = 42656-3) NEGATIVE NEGATIVE N PROTEIN; Normal (test code = 89641-2) NEGATIVE NEGATIVE N NITRITE (test code = NITRITE) NEGATIVE NEGATIVE N LEUKOCYTE ESTERASE (test code = LEUKOCYTE ESTERASE) 2+ NE GATIVE A WBC; Abnormal (test code = 6690-2) 6-10 < OR = 5 A RBC; Normal (test code = 789-8) 0-2 < OR = 2 N SQUAMOUS EPITHELIAL CELLS (test code = 11320-7) 0-5 < OR = 5 TRANSITIONAL EPITHELIAL CELLS (test code = 90735-6) 0-5 < OR = 5 BACTERIA; Abnormal (test code = 630-4) MANY NONE SEEN A HYALINE CAST; Normal (test code = 91429-2) NONE SEEN NONE SEEN N [facility][] REFLEXIVE URINE [id number] 00:00:00* Test Item Value Reference Range Interpretation Comments REFLEXIVE URINE CULTURE (test code = REFLEXIVE URINE C ULTURE) CULTURE INDICATED - RESULTS TO FOLLOW [facility]] CULTURE, URINE, [id number] 00:00:00* Test Item Value Reference Range Interpretation Comments CULTURE (test code = CULTURE) See Comment CULTURE, URINE, ROUTINE MICRO NUMBER: [id number] TEST STATUS: FINAL SPECIMEN SOURCE: URINE SPECIMEN QUALITY: ADEQUATE RESULT: Three or more organisms present, each greater than 10,000 cu/mL. May represent normal luisa contamination from external genitalia. No further testing is required. [facility]iciansMAMMOGRAPHY DIGITAL DX UNI [id number] 09:15:00 [facility] [address] [place] [address] Patient Name: ALEX ALMONTE MR #: [id number] : 951 Age/Sex: 68/F Req #: [id number] Adm Physician: Ordered by: DIOR DORMAN DO Report #: [id number] Location: MAMMO Room/Bed: Procedure: [id number] MG/MAMMOGRAPHY DIGITAL DX UNI RT Exam Date: 10/10/18 Exam Time: 0845 REPORT STATUS: Si ed #[id number] - MGDXRT #UNILATERAL RIGHT DIGITAL DIAGNOSTIC MAMMOG ANDERSON WITH SPOT COMPRESSION: 10/10/2018 Comparison is made to exam dated: 2017 mammogram - [facility]. Current study contains 2 films. There are scattered fibroglandular elements in the right breast. There are benign calcifications in the right breast. The density previously d escribed appears to press out. No mass seen. No significant masses, calci fications, or other findings are seen in the breast. There has been no signi ficant interval change. IMPRESSION: BENIGN There is no mammographic evide nce of malignancy. A 1 year screening mammogram is recommended. The patient will be notified by letter of the results. Onel Manuel Jr., D.O. cw/:10/10/2018 12:33:36 Furniture Packer: Violette Rico RT(R) (M), [facility] letter sent: Normal Exam Mammogram BI-RADS: 2 Benign Dictated By: ONEL MANUEL DO 1233 Transcribed By: GUNJAN on 10/10/18 1233 COPY TO: DIOR DORMAN DO MAMMOGRAPHY DIGITAL SCR [id number] 09:58:00 [place] [address] Patient Name: ALEX ALMONTE MR #: [id number] : 1950 Age/Sex: 68/F Req #: [id number] Adm Physician: Ordered by: DIOR DORMAN DO Report #: [id number] Location: MAMMO Room/Bed: Procedure: [id number]/MAMMOGRAPHY DIGITAL SCR BILAT Exam Date: 09/10/18 Exam Time: 0916 REPORT STATUS: Sign ed #[id number] - MGSCRBIL #BILATERAL DIGITAL SCREENING MAMMOGRAM WITH CAD: 09/10/2018 CLINICAL: Routine screening. Comparison is made to milagro bailey dated: 09/10/2013 mammogram - [facility]. Current study cont ains 8 films. There are scattered fibroglandular elements in both breasts. Current study was also evaluated with a Computer Aided Detection (CAD) system . There is an irregular asymmetry in the right breast at 1 o'clock middle de pth. This is best noted on the implant displacement views. The implants candy ear intact. Scattered benign appearing calcifications are present bilaterall y. No other significant masses, calcifications, or other findings are seen in either breast. IMPRESSION: INCOMPLETE: NEEDS ADDITIONAL IMAGING EVALUA TION The irregular asymmetry in the right breast is indeterminate. Additional views with possible ultrasound are recommended. The patient will be c ontacted by the Mammography Department to schedule this appointment. Saskia Manuel Jr., D.O. cw/:09/17/2018 14:00:01 Imaging Technolog ist: Violette CHAPIN)(Princess), [facility] letter sent: Additional Imaging Needed Mammogram BI-RADS: 0 Indeterminate Dictated By : ONEL MANUEL DO 1400 Transcribed By: GUNJAN on 09/17/18 1400 COPY TO: DIOR DORMAN DO [O] Flu Test (in Office )2018-08-22 00:00:00* Test Item Value Reference Range Interpretation Comments Flu A (test code = Flu A) negative Flu B (test code = Flu B) negative [facility]2018-07-17 10:05:00* Test Item Value Reference Range Interpretation Comments Glucose POC Lifescan (test code = Glucose POC Lifescan) 138 [facility][O] Hemoglobin A1c (in office)2018-07-17 10:05:00 * Test Item Value Reference Range Interpretation Comments HEMOGLOBIN A1c (test code = 4548-4) 6.4 [facility]] LIPID [id number] 08:40:00* Test Item Value Reference Range Interpretation Comments CHOLESTEROL, TOTAL; Above High Threshold (test code = 2093-3) 240 m g/dl <200 HDL CHOLESTEROL; Below Low Threshold (test code = 2085-9) 45 mg/dl >50 TRIGLYCERIDES; Above High Threshold (test code = 2571-8) 324 mg/dl <150 LDL-CHOLESTEROL; Above High Threshold (test code = 63158-5) 145 {MG/DL LONA} Reference range: <100 Desirable range <1 00 mg/dL for primary prevention; <70 mg/dL for patients with CHD or diabetic patients with > or = 2 CHD risk factors. LDL-C is now calculated using the Tenzin calculation, which is a validated novel method providing better accuracy than the Friedewald equation in the estimation of LDL-C. Brenden STAFFORD et al. CHARLIE. 2013;310(19): 4955-3986 (http ://education.Systems Integration.Wedding Reality/faq/ZRX523) CHOL/HDLC RATIO (test code = CHOL/HDLC RATIO) 5.3 {CALC} <5.0 NON HDL CHOLESTEROL (test code = NON HDL CHOLESTEROL) 195 {MG/DL C AL} <130 For patients with diabetes plus 1 major ASCVD risk factor, treating to a non-HDL-C goal of <100 mg/dL (LDL-C of <70 mg/dL) is considered a therapeutic option. [facility]] CMP W/[id number] 08:40:00* Test Item Value Reference Range Interpretation Comments GLUCOSE; Above High Threshold (test code = 1547-9) 130 mg/dl 65- 99 Fasting reference interval For someone without known diabetes, a glucosevalue >125 mg/dL indicates that they may havediabetes and this should be confirmed with afollow- up test. UREA NITROGEN (BUN) (test code = UREA NITROGEN (BUN)) 43 mg/dl 7-25 CREATININE (test code = CREATININE) 1.17 mg/dl 0.50-0.99 For patients >49 years of age, the reference limitfor Creatinine is approximately 13% higher for peopleidentified as -Croatian. eGFR NON- (test code = eGFR NON-MARK N [place]) 49 {ML/MIN/1.7} > OR = 60 eGFR (test code = eGFR ) 56 {ML/MIN/1.7} > OR = 60 BUN/CREATININE RATIO (test code = BUN/CREATININE RATIO) 37 {CALC} 6-22 SODIUM (test code = SODIUM) 143 mmol/L 135-146 N POTASSIUM (test code = POTASSIUM) 4.5 mmol/L 3.5-5.3 N CHLORIDE (test code = CHLORIDE) 105 mmol/L 98-110 N CARBON DIOXIDE (test code = CARBON DIOXIDE) 27 mmol/L 20-32 N CALCIUM (test code = CALCIUM) 10.6 mg/dl 8.6-10.4 PROTEIN, TOTAL (test code = PROTEIN, TOTAL) 6.9 g/dl 6.1-8.1 N ALBUMIN (test code = ALBUMIN) 4.7 g/dl 3.6-5.1 N GLOBULIN (test code = GLOBULIN) 2.2 {G/DL CALC} 1.9-3.7 N ALBUMIN/GLOBULIN RATIO (test code = ALBUMIN/GLOBULIN RATIO) 2.1 {CALC} 1.0-2.5 N BILIRUBIN, TOTAL; Normal (test code = 84560-5) 0.5 mg/dl 0.2-1.2 N ALKALINE PHSPHATASE (test code = ALKALINE PHSPHATASE) 49 u/l 33-130 N AST; Normal (test code = 1916-6) 17 u/l 10-35 N ALT; Normal (test code = 1742-6) 8 u/l 6-29 N [facility]] MICROALBUMIN, RANDOM URINE (W/CREATININE) 2018-07-10 08:40:00* Test Item Value Reference Range Interpretation Comments CREATININE, RANDOM URINE (test code = CREATININE, RANDOM URINE) 69 mg/dl 20-275 N MICROALBUMIN (test code = MICROALBUMIN) 10.6 mg/dl N Reference RangeNot established MICROALBUMIN/CREATININE RATIO, RANDOM UR INE (test code = MICROALBUMIN/CREATININE RATIO, RANDOM URINE) 154 {MCG/MG CRE} <30 The ADA d efines abnormalities in albuminexcretion as follows: Category Result (mcg/mg creatinine) Normal <30Microalbuminuria 30-299 Clinical albuminuria > OR = 300 The ADA recommends that at least two of threespecimens collected within a 3-6 month period beabnormal before considering a patient to bewithin a diagnostic category. [facility]2018-04-16 13:07:00* Test Item Value Reference Range Interpretation Comments Glucose POC [facility] (test code = Glucose POC Lifescan) 131 [facility][O] Hemoglobin A1c (in office)2018-04-16 13:07:00 * Test Item Value Reference Range Interpretation Comments HEMOGLOBIN A1c (test code = 4548-4) 7.3 [facility]] LIPID [id number] 08:04:00* Test Item Value Reference Range Interpretation Comments CHOLESTEROL, TOTAL; Above High Threshold (test code = 2093-3) 283 m g/dl <200 HDL CHOLESTEROL; Below Low Threshold (test code = 2085-9) 37 mg/dl >50 TRIGLYCERIDES; Above High Threshold (test code = 2571-8) 754 mg/dl <150 LDL-CHOLESTEROL (test code = 99300-5) See Comment LDL cholesterol not calculated. Triglyceride levelsgreater than 400 mg/dL invalidate calculated LDL results. Reference range: <100 Desirable range <100 mg/dL for primary prevention; <70 mg/dL for patients with CHD or diabetic patients with > or = 2 CHD risk factors. LDL-C is now calculated using the Tenzin calculation, which is a validated novel method providing better accuracy than the Friedewald equation in the estimation of LDL-C. Brenden STAFFORD et al. CHARLIE. 2013;310(19): 2061- 2068 (http://education.Circalit/faq/DEX766) CHOL/HDLC RATIO (test code = CHOL/HDLC RATIO) 7.6 {CALC} <5.0 NON HDL CHOLESTEROL (test code = NON HDL CHOLESTEROL) 246 {MG/DL C AL} <130 Non-HDL level > or = 220 is very high and may indicate genetic familial hypercholesterolemia (FH). Clinical assessment and measurement of blood lipid levels should be considered for all first-degree relatives of patients with an FH diagnosis. For patients with diabetes plus 1 major ASCVD risk factor, treating to a non-HDL-C goal of <100 mg/dL (LDL-C of <70 mg/dL) is considered a therapeutic option. [facility]] CMP [id number] 08:04:00* Test Item Value Reference Range Interpretation Comments GLUCOSE; Above High Threshold (test code = 1547-9) 136 mg/dl 65- 99 Fasting reference interval For someone without known diabetes, a glucosevalue >125 mg/dL indicates that they may havediabetes and this should be confirmed with afollow- up test. UREA NITROGEN (BUN) (test code = UREA NITROGEN (BUN)) 45 mg/dl 7-25 CREATININE (test code = CREATININE) 1.03 mg/dl 0.50-0.99 For patients >49 years of age, the reference limitfor Creatinine is approximately 13% higher for peopleidentified as -Croatian. eGFR NON- (test code = eGFR NON-MARK N [place]) 57 {ML/MIN/1.7} > OR = 60 eGFR (test code = eGFR ) 66 {ML/MIN/1.7} > OR = 60 N BUN/CREATININE RATIO (test code = BUN/CREATININE RATIO) 44 {CALC} 6-22 SODIUM (test code = SODIUM) 140 mmol/L 135-146 N POTASSIUM (test code = POTASSIUM) 4.7 mmol/L 3.5-5.3 N CHLORIDE (test code = CHLORIDE) 109 mmol/L 98-110 N CARBON DIOXIDE (test code = CARBON DIOXIDE) 21 mmol/L 20-31 N CALCIUM (test code = CALCIUM) 10.2 mg/dl 8.6-10.4 N PROTEIN, TOTAL (test code = PROTEIN, TOTAL) 7.0 g/dl 6.1-8.1 N ALBUMIN (test code = ALBUMIN) 4.7 g/dl 3.6-5.1 N GLOBULIN (test code = GLOBULIN) 2.3 {G/DL CALC} 1.9-3.7 N ALBUMIN/GLOBULIN RATIO (test code = ALBUMIN/GLOBULIN RATIO) 2.0 {CALC} 1.0-2.5 N BILIRUBIN, TOTAL; Normal (test code = 47667-4) 0.6 mg/dl 0.2-1.2 N ALKALINE PHSPHATASE (test code = ALKALINE PHSPHATASE) 84 u/l 33-130 N AST; Normal (test code = 1916-6) 17 u/l 10-35 N ALT; Normal (test code = 1742-6) 10 u/l 6-29 N [facility]] MICROALBUMIN, RANDOM URINE (W/CREATININE) 2018-01-04 08:04:00* Test Item Value Reference Range Interpretation Comments CREATININE, RANDOM URINE (test code = CREATININE, RANDOM URINE) 90 mg/dl 20-320 N MICROALBUMIN (test code = MICROALBUMIN) 10.1 mg/dl N Reference RangeNot established MICROALBUMIN/CREATININE RATIO, RANDOM UR INE (test code = MICROALBUMIN/CREATININE RATIO, RANDOM URINE) 112 {MCG/MG CRE} <30 The ADA d efines abnormalities in albuminexcretion as follows: Category Result (mcg/mg creatinine) Normal <30Microalbuminuria 30-299 Clinical albuminuria > OR = 300 The ADA recommends that at least two of threespecimens collected within a 3-6 month period beabnormal before considering a patient to bewithin a diagnostic category. [facility][O] Hemoglobin A1c (in office)2017-12-27 11:33:00 * Test Item Value Reference Range Interpretation Comments HEMOGLOBIN A1c (test code = 4548-4) 6.3 [facility]2017-12-27 11:32:00* Test Item Value Reference Range Interpretation Comments Glucose POC [facility] (test code = Glucose POC Lifescan) 101 [facility][O] Hemoglobin A1c (in office)2017-09-28 11:55:00 * Test Item Value Reference Range Interpretation Comments HEMOGLOBIN A1c (test code = 4548-4) 8.1 [facility]2017-09-28 11:53:00* Test Item Value Reference Range Interpretation Comments Glucose POC [facility] (test code = Glucose POC [facility]) 216 [facility]
--- OUTSIDE RECORDS SUMMARY | 2020-06-07 21:23 | XMS REPORT | Continuity of Care Document ---
Author Author [facility] t Organization [facility] Address [address] [place] [address] Phone Unavailable Care Team Providers Care Assistant Superintendent Name Role Phone Judd THOMAS, Harleen Dennis PCP January DANIELS Attphys Unavailable NILESH ZIEGLER P.AToy Attphys Unavailable ABEL SMITH M.D. Attphys Unavailable Jadon Silva MD Attphys January Morris RD Attphys Unavailable Janes YATES, Nannette Lindquist Attphys Unavailable Rowdy Mcneil MD Attphys Mone Last Attphys Calin THOMAS, Abhi Anand Attphys [phone] Ava Marrero MA Attphys Unavailable CHARLIE ABAD, THEATER USHER Attphys Unavailable Altaf DORMAN Attphys Unavailable GRACIE [...] Date S ource MEDICAREMEDICARE PART A AND [id number] 2015-[id number] 2016 00:00:00 Enzo Castaneda MIN OF TERI OF [id number] 2016-PresentCommercia l [id number] 2017 00:00:00 Enzo Castaneda Problems Condition Name [...] e Disease Active 2019-07-04 00:00:00 [facility] Dalia's deformity, right Dalia's deformity, right Disease Active 2018-11-05 00:00:[address] History of Diabetes Mellitus Without Complication Hist ory of Diabetes Mellitus Without Complication Problem Resolved Un [facility] History of cough History of cough Problem Resolved [facility] History of snoring History of snoring Problem Resolved [facility] History of Abnormal finding on urinalysis History of A bnormal finding on urinalysis Problem Resolved [place] [facility] History of Acute bronchitis due to infection History o f Acute bronchitis due to infection Problem Resolved [facility] History of Acute drug-induced gout of foot, unspecifie d laterality History of Acute drug-induced gout of foot, unspecified laterality Problem Resolved [facility] Gout Gout Problem Active [facility] History of Acute maxillary sinusitis, recurrence not s pecified History of Acute maxillary sinusitis, recurrence not specified Problem Resolved [facility] History of Acute recurrent maxillary sinusitis History of Acute recurrent maxillary sinusitis [facility] History of Acute upper respiratory infection History o f Acute upper respiratory infection Problem Resolved [facility] History of Acute UTI History of Acute UTI Problem Resolved [facility] History of contact dermatitis History of contact dermatitis Problem Resolved [facility] History of hyperlipidemia History of hyperlipidemia Problem Resolved [facility] Diabetes type 2, uncontrolled Diabetes type 2, uncontrolled Problem Active [facility] History of essential hypertension History of essential hypertens ion Problem Resolved [facility] History of hematuria History of hematuria Problem Resolved [facility] History of viral gastroenteritis History of viral gastroenteriti s Problem Resolved [facility] History of Intercostal pain History of Intercostal pain Problem Resolved [facility] Personal history of gout Personal history of gout Problem Resolved [facility] History of myocardial infarction History of myocardial infarctio n Problem Resolved [facility] Narcolepsy Narcolepsy Problem [facility] History of Noninfectious diarrhea History of Noninfectious diarr hea Problem Resolved [facility] History of Other fatigue History of Other fatigue Problem Resolved [facility] History of Pain, foot, left, chronic History of Pain, foot, left, chronic Problem Resolved [facility] History of Right foot pain History of Right foot pain Problem Resolved [facility] History of sciatica History of sciatica Problem Resolved [facility] History of Sciatica of right side associated with diso rder of lumbar spine History of Sciatica of right side associated with disorder of lumbar spine Problem Resolved [facility] History of sinusitis History of sinusitis Problem Resolved [facility] History of Swelling of foot joint, left History of Swelling of foot joint, left Problem Resolved [facility] Edema Edema Problem Active [facility] De Jesus neuroma, left De Jesus neuroma, left Problem Active [facility] Post herpetic neuralgia Post herpetic neuralgia Problem Active [facility] Bleeding risk due to aspirin Bleeding risk due to aspirin Problem Active [facility] Hypertriglyceridemia Hypertriglyceridemia Problem Active [facility] Other insomnia Other insomnia Problem Active [facility] Lumbar facet arthropathy Lumbar facet arthropathy Problem Active [facility] 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 Active [facility] 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 Problem Active [facility] Antiplatelet or antithrombotic long-term use Antiplate let or antithrombotic long-term use Problem Active [facility] Vitamin D deficiency Vitamin D deficiency Problem Active [facility] Hypercalcemia Hypercalcemia Problem Active [facility] Controlled type 2 diabetes mellitus Controlled type 2 diabetes m ellitus Problem Active [facility] Essential (primary) hypertension Essential (primary) hypertensio n Problem Active [facility] Hyperlipidemia Hyperlipidemia Problem Active [facility] Depressive disorder Depressive disorder Problem Active [facility] Acute sinusitis Acute sinusitis Problem Active [facility] Anxiety with depression Anxiety with depression Problem Active [facility] Obesity (BMI 30.0-34.9) Obesity (BMI 30.0-34.9) Problem Active [facility] Vaginitis Vaginitis Problem Active [facility] Allergies, Adverse Reactions, Alerts Allergy Name Allergy Type Status Severity Reaction(s) Onset Date Inacti ve Date Treating Clinician Comments Source Codeine Propensity to adverse reactions to drug Active GI Intolerance 2019-10-04 00:00:00 n/v [facility] Family History Family Member Diagnosis Comments Start Date Stop Date Source Unknown Family Member Family history of Stroke Syndrome Family Histor y [facility] Grandmother Family history of Heart Disease [facility] Grandmother Family history of Diabetes Mellitus [facility] Grandmother Family history of Hypertension [facility] Grandmother Family history of Pure Hypercholesterolemia [facility] Mother Family history of Heart Disease [facility] Mother Family history of Diabetes Mellitus [facility] Mother Family history of Hypertension [facility] Mother Family history of Pure Hypercholesterolemia [facility] Father Family history of Heart Disease [facility] Father Family history of Hypertension [facility] Father Family history of Pure Hypercholesterolemia [facility] Natural father Alcohol abuse [facility] Natural father Heart attack [facility] Natural father Heart disease [facility] Natural mother Alcohol abuse [facility] Natural mother Aneurysm [facility] Natural mother Diabetes [facility] Natural sister Cancer [facility] Social History Social Habit Start Date Stop Date Quantity Comments Source History SDOH Alcohol Std Drinks [facility] History SDOH Alcohol Binge [facility] Sex Assigned At [facility] Tobacco use and exposure 2019-10-14 00:00:00 2019-10-14 00:00:00 Clovis morales used [facility] Alcohol intake 2019-10-14 00:00:00 2019-10-14 00:00:00 Current non-drinker of alcohol (finding) Enzo Castaneda History SDOH Alcohol Frequency 2018-11-05 00:00:00 2018-11-05 00:00:0 0 1 Enzo Castaneda Smoking Status Start Date Stop Date Source Ex-smoker (finding) [facility] Never smoker Enzo Mancia t Medications Ordered Medication Name Filled Medication Name Start Date Stop Da te Current Medication? Ordering Clinician Indication Dosage Frequency Signature (SIG) Comments Components Source Nystatin 833481 UNIT/GM External Ointment Nystatin 100 000 UNIT/GM External Ointment 2020-05-12 00:00:00 Yes NILESH ZIEGLER P.A. Q0.3333D APPLY 2-3 TIMES DAILY TO AFFECTED AREA(S). [facility] Nystatin [id number] UNIT/GM External Powder Nystatin [id number] UNIT /GM External Powder 2020-05-12 00:00:00 Yes NILESH ZIEGLER P.A. Q 0.3333D APPLY 2-3 TIMES DAILY TO AFFECTED AREA(S). [facility] Vitamin D (Ergocalciferol) 1.25 MG (76214 UT) Oral Cap alecia Vitamin D (Ergocalciferol) 1.25 MG (38046 UT) Oral Capsule 2020-02-26 00:00:00 Yes ABEL SMITH M.D. take 1 cap PO once weekly [facility] cholecalciferol, vitamin D3, (DIALYVITE VITAMIN [...] 2019-10-04 13:24:28 2019-10-04 00:00:00 No Med Name: Enzo Castaneda isosorbide dinitrate (ISORDIL) 40 MG tablet 2019 06:52:43 2019-10-04 00:00:00 No 40mg [id number] Ta ke 40 mg by mouth 3 [...] SMITH M.D. use to inject 3-5xs [facility] NovoLIN R ReliOn 100 UNIT/ML Injection Solution NovoLI N R ReliOn 100 UNIT/ML Injection Solution 2018-12-06 00:00:00 Yes ABEL SMITH M.D. inject 5-10 U SC q1/2AC [facility] ondansetron (ZOFRAN) 4 MG tablet 2018-12-04 [...] check BG at least 3xs daily [facility] NovoLIN N ReliOn 100 UNIT/ML Subcutaneous Suspension N ovoLIN N ReliOn 100 UNIT/ML Subcutaneous Suspension 2018-01-02 00:00:00 Yes ABEL JAMES M.D. inject 20 U in AM and 24 U in PM SC [facility] D 5000 125 MCG (5000 UT) Oral Capsule D 5000 125 MCG (5000 U T) Oral Capsule 2017-06-27 00:00:00 Yes ABEL SMITH M.D. take 1 tab daily [facility] Allopurinol 300 MG Oral Tablet Allopurinol 300 MG Oral Table t 2017-06-16 00:00:00 Yes GRACIE SCOTT APRN 1 QD TAKE 1 TABLET DAILY DIRECTED. [facility] Irbesartan 300 MG Oral Tablet Irbesartan 300 MG Oral Tablet 2012 00:00:00 Yes NILESH ONEILLOS P.A. 1 QD TAKE 1 TABLET DAILY. [facility] metFORMIN HCl - 500 MG Oral Tablet metFORMIN HCl - 500 MG Or al Tablet 2013-05-04 00:00:00 Yes ABEL SMITH M.D. Q0.5D TAKE 2 TABLET S BY MOUTH TWICE DAILY [facility] Aspirin 81 MG TABS Aspirin 81 MG TABS Yes 1 QD TA KE 1 TABLET DAILY. [facility] Clopidogrel Bisulfate 75 MG Oral Tablet Clopidogrel Bisulfat e 75 MG Oral Tablet Yes 1 QD TAKE 1 TABLET DAILY. [facility] Caryl CAPS Caryl CAPS Yes as needed [facility] Ibuprofen TABS Ibuprofen TABS Yes [facility] Carvedilol 12.5 MG Oral Tablet Carvedilol 12.5 MG Oral Tablet Yes 2 tabs BID [facility] Fenofibrate 145 MG Oral Tablet Fenofibrate 145 MG Oral Tablet Yes QD TAKE 1 TABLET DAILY WITH FOOD. [facility] Immunizations Ordered Immunization Name Filled Immunization Name Date Status Comments Source Influenza 2007-06-26 00:00:00 Completed [facility] Fluzone High-Dose 0.5 ML Intramuscular Suspension Prefilled Syri nge Unknown Completed [facility] Shingrix 50 MCG Intramuscular Suspension Reconstituted Unk nown Completed [facility] Vital Signs Vital Name Observation Time Observation Value Comments Source Systolic blood pressure 2020-05-12 10:52:00 148 mm[Hg] Loca tion: LUE; Position: Sitting [facility] Diastolic blood pressure 2020-05-12 10:52:00 72 mm[Hg] Loc ation: LUE; Position: Sitting [facility] Body height 2020-05-12 10:52:00 60 [in_us] [facility] Weight 2020-05-12 10:52:00 172.4375 [lb_av] [facility] Body mass index (BMI) [Ratio] 2020-05-12 10:52:00 33.68 kg/m2 [facility] Body temperature 2020-05-12 10:52:00 99 [degF] Method: Temporal [facility] Heart Rate 2020-05-12 10:52:00 89 /min [facility] Respiratory rate 2020-05-12 10:52:00 16 /min [facility] Systolic blood pressure 2020-02-13 11:27:00 167 mm[Hg] Loca tion: LUE; Position: Sitting [facility] Diastolic blood pressure 2020-02-13 11:27:00 89 mm[Hg] Loc ation: LUE; Position: Sitting [facility] Heart Rate 2020-02-13 11:27:00 69 /min Location: L Radial; Q uality: Normal [facility] Systolic blood pressure 2020-02-13 11:24:00 172 mm[Hg] Loca tion: LUE; Position: Sitting [facility] Diastolic blood pressure 2020-02-13 11:24:00 70 mm[Hg] Loc ation: LUE; Position: Sitting [facility] Heart Rate 2020-02-13 11:24:00 69 /min Location: L Radial; Q uality: Normal [facility] Body height 2020-02-13 11:24:00 60 [in_us] [facility] Weight 2020-02-13 11:24:00 169.5625 [lb_av] [facility] Body mass index (BMI) [Ratio] 2020-02-13 11:24:00 33.12 kg/m2 [facility] Body temperature 2020-02-13 11:24:00 97.8 [degF] Method: Oral [facility] Body height 2019-11-14 11:16:00 152.4 cm [facility] Body weight 2019-11-14 11:16:00 74.844 kg [facility] BMI 2019-11-14 11:16:00 32.22 kg/m2 [facility] Systolic blood pressure 2019-11-13 10:00:00 123 mm[Hg] Loca tion: LUE; Position: Sitting [facility] Diastolic blood pressure 2019-11-13 10:00:00 68 mm[Hg] Loc ation: LUE; Position: Sitting [facility] Body height 2019-11-13 10:00:00 60 [in_us] [facility] Weight 2019-11-13 10:00:00 162.5625 [lb_av] [facility] Body mass index (BMI) [Ratio] 2019-11-13 10:00:00 31.75 kg/m2 [facility] Heart Rate 2019-11-13 10:00:00 69 /min [facility] Systolic blood pressure 2019-10-24 10:13:00 158 mm[Hg] Loca tion: LUE; Position: Sitting [facility] Diastolic blood pressure 2019-10-24 10:13:00 82 mm[Hg] Loc ation: LUE; Position: Sitting [facility] Body height 2019-10-24 10:13:00 60 [in_us] [facility] Weight 2019-10-24 10:13:00 167.375 [lb_av] [facility] Body mass index (BMI) [Ratio] 2019-10-24 10:13:00 32.69 kg/m2 [facility] Body temperature 2019-10-24 10:13:00 98.4 [degF] Method: Oral [facility] Heart Rate 2019-10-24 10:13:00 69 /min Location: L Brachial Artery; [facility] O2 SAT 2019-10-24 10:13:00 97 % Source: RA [facility] Systolic blood pressure 2019-10-14 09:25:00 185 mm[Hg] [facility] Diastolic blood pressure 2019-10-14 09:25:00 95 mm[Hg] [facility] Heart rate 2019-10-14 09:25:00 78 /min [facility] Body temperature 2019-10-14 09:25:00 36.67 [facility] Respiratory rate 2019-10-04 12:28:00 20 /min [facility] Oxygen saturation in Arterial blood by Pulse oximetry 10-04 12:28:00 95 /min [facility] BP Systolic 2019-08-13 10:14:00 150 mm[Hg] Location: LOS; [place] on: Sitting [facility] BP Diastolic 2019-08-13 10:14:00 75 mm[Hg] Location: LUE; [place] on: Sitting [facility] Height 2019-08-13 10:14:00 60 [in_us] [facility] Weight 2019-08-13 10:14:00 163.25 [lb_av] [facility] Body Mass Index Calculated 2019-08-13 10:14:00 31.88 kg/m2 [facility] Heart Rate 2019-08-13 10:14:00 51 /min [facility] BP Systolic 2019-03-12 09:34:00 124 mm[Hg] Location: LUE; [place] on: Sitting [facility] BP Diastolic 2019-03-12 09:34:00 63 mm[Hg] Location: LUE; [place]: Sitting [facility] Height 2019-03-12 09:34:00 60 [in_us] [facility] Weight 2019-03-12 09:34:00 160.125 [lb_av] [facility] Body Mass Index Calculated 2019-03-12 09:34:00 31.27 kg/m2 [facility] Heart Rate 2019-03-12 09:34:00 71 /min [facility] BP Systolic 2018-12-06 09:31:00 135 mm[Hg] Location: CATRACHITOE; [place]: Sitting [facility] BP Diastolic 2018-12-06 09:31:00 70 mm[Hg] Location: LUE; [place]: Sitting [facility] Height 2018-12-06 09:31:00 60 [in_us] [facility] Weight 2018-12-06 09:31:00 158.0 [lb_av] [facility] Body Mass Index Calculated 2018-12-06 09:31:00 30.86 kg/m2 [facility] Heart Rate 2018-12-06 09:31:00 63 /min [facility] BP Systolic 2018-11-28 10:47:00 130 mm[Hg] Location: LUE; [place]: Sitting [facility] BP Diastolic 2018-11-28 10:47:00 75 mm[Hg] Location: LUE; [place]: Sitting [facility] Height 2018-11-28 10:47:00 60 [in_us] [facility] Weight 2018-11-28 10:47:00 162.375 [lb_av] [facility] Body Mass Index Calculated 2018-11-28 10:47:00 31.71 kg/m2 [facility] Temperature 2018-11-28 10:47:00 98.4 [degF] Method: Temporal [facility] Heart Rate 2018-11-28 10:47:00 74 /min Location: L Brachial Artery; [facility] Respiration Rate 2018-11-28 10:47:00 16 /min Quality: [facility] BP Systolic 2018-08-22 09:42:00 150 mm[Hg] Location: RUE; [place] on: Sitting [facility] BP Diastolic 2018-08-22 09:42:00 77 mm[Hg] Location: RUE; [place]: Sitting [facility] Height 2018-08-22 09:42:00 60 [in_us] [facility] Weight 2018-08-22 09:42:00 147.5625 [lb_av] [facility] Body Mass Index Calculated 2018-08-22 09:42:00 28.82 kg/m2 [facility] Temperature 2018-08-22 09:42:00 98.5 [degF] Method: Temporal [facility] Heart Rate 2018-08-22 09:42:00 77 /min [facility] Respiration Rate 2018-08-22 09:42:00 14 /min [facility] BP Systolic 2018-07-17 10:53:00 150 mm[Hg] Location: LUE; [place] on: Sitting [facility] BP Diastolic 2018-07-17 10:53:00 70 mm[Hg] Location: LUE; [place] on: Sitting [facility] BP Systolic 2018-07-17 10:04:00 166 mm[Hg] Location: LUE; [place]: Sitting [facility] BP Diastolic 2018-07-17 10:04:00 72 mm[Hg] Location: LUE; [place]: Sitting [facility] Height 2018-07-17 10:04:00 60 [in_us] [facility] Weight 2018-07-17 10:04:00 148.375 [lb_av] [facility] Body Mass Index Calculated 2018-07-17 10:04:00 28.98 kg/m2 [facility] Heart Rate 2018-07-17 10:04:00 57 /min [facility] BP Systolic 2018-04-16 13:06:00 159 mm[Hg] Location: LOS; [place]: Sitting [facility] BP Diastolic 2018-04-16 13:06:00 70 mm[Hg] Location: CATRACH[place]; [place]: Sitting [facility] Height 2018-04-16 13:06:00 60 [in_us] [facility] Weight 2018-04-16 13:06:00 160.1875 [lb_av] [facility] Body Mass Index Calculated 2018-04-16 13:06:00 31.28 kg/m2 [facility] Heart Rate 2018-04-16 13:06:00 80 /min [facility] BP Systolic 2018-02-23 14:44:00 138 mm[Hg] Location: CATRACH[place]; [place]: Sitting [facility] BP Diastolic 2018-02-23 14:44:00 76 mm[Hg] Location: [place]; [place]: Sitting [facility] Heart Rate 2018-02-23 14:44:00 72 /min Location: L Brachial Artery; [facility] BP Systolic 2018-02-23 13:24:00 144 mm[Hg] Location: LOS; [place]: Sitting [facility] BP Diastolic 2018-02-23 13:24:00 71 mm[Hg] Location: LOS; [place]: Sitting [facility] Height 2018-02-23 13:24:00 60 [in_us] [facility] Weight 2018-02-23 13:24:00 159.1875 [lb_av] [facility] Body Mass Index Calculated 2018-02-23 13:24:00 31.09 kg/m2 [facility] Temperature 2018-02-23 13:24:00 97 [degF] Method: Temporal [facility] Heart Rate 2018-02-23 13:24:00 72 /min Location: L Brachial Artery; [facility] Respiration Rate 2018-02-23 13:24:00 16 /min [facility] BP Systolic 2017-12-27 11:31:00 151 mm[Hg] Location: LOS; [place]: Sitting [facility] BP Diastolic 2017-12-27 11:31:00 81 mm[Hg] Location: LOS; [place]: Sitting [facility] Height 2017-12-27 11:31:00 60 [in_us] [facility] Weight 2017-12-27 11:31:00 161.1875 [lb_av] [facility] Body Mass Index Calculated 2017-12-27 11:31:00 31.48 kg/m2 [facility] Heart Rate 2017-12-27 11:31:00 65 /min [facility] BP Systolic 2017-09-28 11:52:00 136 mm[Hg] Location: LOS; [place]: Sitting [facility] BP Diastolic 2017-09-28 11:52:00 76 mm[Hg] Location: LOS; [place]: Sitting [facility] Height 2017-09-28 11:52:00 60 [in_us] [facility] Weight 2017-09-28 11:52:00 169.375 [lb_av] [facility] Body Mass Index Calculated 2017-09-28 11:52:00 33.08 kg/m2 [facility] Heart Rate 2017-09-28 11:52:00 80 /min [facility] BP Systolic 2017-09-18 10:31:00 152 mm[Hg] Location: LOS; [place]: Sitting [facility] BP Diastolic 2017-09-18 10:31:00 82 mm[Hg] Location: LOS; [place]: Sitting [facility] Height 2017-09-18 10:31:00 60 [in_us] [facility] Weight 2017-09-18 10:31:00 171.375 [lb_av] [facility] Body Mass Index Calculated 2017-09-18 10:31:00 33.47 kg/m2 [facility] Temperature 2017-09-18 10:31:00 97.7 [degF] Method: Temporal [facility] Heart Rate 2017-09-18 10:31:00 89 /min Location: L Brachial Artery; [facility] Respiration Rate 2017-09-18 10:31:00 16 /min Quality: Normal [facility] Procedures Procedure Date / Time Performed Performing Clinician Sourc e [QL] CMP W/EGFR 2020-03-02 00:00:00 [place] [facility] [QL] LIPID PANEL 2020-03-02 00:00:00 [facility] [QL] VITAMIN D, 25-HYDROXY, LC/MS/MS 2020-03-02 00:00:00 [facility] [QL] CMP W/EGFR 2020-02-13 00:00:00 [facility] [QL] LIPID PANEL 2020-02-13 00:00:00 [facility] [QL] MICROALBUMIN, RANDOM URINE (W/CREATININE) 2020-02-13 00:00: 00 [facility] [QL] CBC (INCLUDES DIFF/PLT) 2020-02-13 00:00:00 [facility] [QL] VITAMIN D, 25-HYDROXY, LC/MS/MS 2020-02-13 00:00:00 [facility] [QL] TSH, 3RD GENERATION W/REFLEX TO FT4 2020-02-13 00:00:00 [facility] AMB REFERRAL TO WEIGHT MANAGEMENT - MEDICAL NUTRITI ON THERAPY 2019-11-14 12:56:31 Bill Silva POC GLUCOSE 2019-10-04 11:22:00 Bill Silva SURGICAL PATHOLOGY REQUEST 2019-10-04 09:23:00 Bill Silva AK AN ELECTIVE ENDOTRACHEAL AIRWAY 2019-10-04 08:55:14 Rosemarie Last REMOVAL, GASTRIC BAND, LAPAROSCOPIC 2019-10-04 08:17:00 Bill Silva POC GLUCOSE 2019-10-04 07:32:00 Bill Silva ECG 12-LEAD 2019-10-01 14:11:13 Bill Silva HC COMPLETE BLD COUNT W/AUTO DIFF 2019-10-01 14:00:00 Bill Silva HEMOGLOBIN A1C 2019-10-01 14:00:00 Bill Silva TYPE AND SCREEN 2019-10-01 13:56:00 Bill Silva BASIC METABOLIC PANEL 2019-10-01 12:59:00 Bill Silva ESTIMATED GFR 2019-10-01 12:59:00 Bill Silva XR CALCANEUS 2+ VW RIGHT 2019-08-29 10:07:53 Cheng Layton [QL] MICROALBUMIN, RANDOM URINE (W/CREATININE) 2019-08-13 00:00 :00 [facility] ZZFL UGI W KUB 2019-08-05 07:35:00 Bill Silva History of Achilles tendon surgery 2019-01-11 00:00:00 [facility] History of Ostectomy of calcaneus for spur 2018-12-12 00:00:00 [facility] [QL] URINALYSIS, COMPLETE W/REFLEX TO CULTURE 2018-11-28 00:00: 00 [facility] [O] Flu Test (in Office ) 2018-08-22 00:00:00 [facility] CMP W/EGFR 2018-07-17 00:00:00 [facility] [QL] VITAMIN D, 25-HYDROXY, LC/MS/MS 2018-07-17 00:00:00 [facility] [[facility]] LIPID PANEL 2018-04-16 00:00:00 [facility] [QL] CMP W/EGFR 2018-04-16 00:00:00 [facility] [QL] MICROALBUMIN, RANDOM URINE (W/CREATININE) 2018-04-16 00:00 :00 [facility] [QL] CMP W/EGFR 2017-12-27 00:00:00 [facility] [QL] MICROALBUMIN, RANDOM URINE (W/CREATININE) 2017-12-27 00:00 :00 [facility] [[facility]] LIPID PANEL 2017-12-27 00:00:00 [facility] [QL] VITAMIN D, 25-HYDROXY, LC/MS/MS 2017-06-27 00:00:00 [facility] [QL] CALCIUM, IONIZED 2017-06-27 00:00:00 [facility] History of Laparosc Restrictive Proc Adjustable Gastric Band Murphy cement [facility] History of [facility] History of Breast Surgery Removal Of Mammary Implant Bilateral [facility] History of Cystoscopy With Removal Of Ureteral Calculus [facility] History of Neuroplasty Median Nerve At Carpal Tunnel [facility] History of Complete Colonoscopy [facility] History of Renal Lithotripsy [facility] History of Breast Surgery Enlargement Procedure [facility] History of Breast Surgery Reduction Procedure [facility] History of Abdominoplasty Univer [facility] History of Exchange Of Intraocular Lens [facility] History of Cath Placement Of Stent 1 [facility] History of Laparoscopic adjustable gastric banding [facility] Plan of Care Planned Activity Planned Date Details Comments Source Future Scheduled Test 2020-05-11 00:00:00 [QL] CMP W/EGFR [c ode = [QL] CMP W/EGFR] [facility] Future Scheduled Test 2020-05-11 00:00:00 [QL] LIPID PANEL [ code = [QL] LIPID PANEL] [facility] Future Scheduled Test 2020-05-11 00:00:00 [QL] VITAMIN D, 25 -HYDROXY, LC/MS/MS [code = [QL] VITAMIN D, 25-HYDROXY, LC/MS/MS] [facility] Future Scheduled Test 2020-04-11 00:00:00 INFLUENZA VACCINE [code = INFLUENZA VACCINE] [facility] Diagnostic Test Pending 2018-10-01 00:00:00 [QLH] CMP W/EGFR [code = [QLH] CMP W/EGFR] [facility] Diagnostic Test Pending 2018-10-01 00:00:00 [QLH] VITAMIN D, 25-HYDROXY, LC/MS/MS [code = [QLH] VITAMIN D, 25-HYDROXY, LC/MS/MS] [facility] Diagnostic Test Pending 2018-07-02 00:00:00 [QLH] LIPID PANE L [code = [QLH] LIPID PANEL] [facility] Diagnostic Test Pending 2018-07-02 00:00:00 [QLH] CMP W/EGFR [code = [QLH] CMP W/EGFR] [facility] Diagnostic Test Pending 2018-07-02 00:00:00 [QLH] MICROALBUM IN, RANDOM URINE (W/CREATININE) [code = 42197] [facility] Diagnostic Test Pending 2018-07-02 00:00:00 [QLH] LIPID PANE L [code = [QLH] LIPID PANEL] [facility] Diagnostic Test Pending 2018-07-02 00:00:00 [QLH] CMP W/EGFR [code = [QLH] CMP W/EGFR] [facility] Diagnostic Test Pending 2018-07-02 00:00:00 [QLH] MICROALBUM IN, RANDOM URINE (W/CREATININE) [code = 44198] [facility] Future Scheduled Test 2016 00:00:00 65+ PNEUMOCOCCAL V ACCINE (1 of 1 - PPSV23) [code = 65+ PNEUMOCOCCAL VACCINE (1 of 1 - PPSV23)] [facility] Scheduled Test 2001 00:00:00 BREAST CANCER SCRE ENING [code = BREAST CANCER SCREENING] [facility] Scheduled Test 2001 00:00:00 COLONOSCOPY SCREEN ING [code = COLONOSCOPY SCREENING] [facility] Scheduled Test 2001 00:00:00 SHINGLES VACCINES (#1) [code = SHINGLES VACCINES (#1)] [facility] Scheduled Test 1961 00:00:00 DIABETIC FOOT EXAM [code = DIABETIC FOOT EXAM] [facility] Scheduled Test 1961 00:00:00 URINE MICROALBUMIN [code = URINE MICROALBUMIN] [facility] Scheduled Test 1951 00:00:00 DIABETIC RETINAL E YE EXAM [code = DIABETIC RETINAL EYE EXAM] [facility] Appointment 2020-07-01 13:30:00 Dilan ROMAN, [facility] Encounters Start Date/Time End Date/Time Encounter Type Admission Type Attendi [facility] Care Department Encounter ID Source 2020-05-12 10:45:00 2020-05-12 10:45:00 Appointment; NILESH ZIEGLER P.A. CAMPOS, BERTHA, P.A. [facility] [place], [address] [id number] [facility] 2020-02-13 11:30:2020-02-13 11:30:00 Appointment; ABEL SMITH M.D. NASSIF, JULIA, M.D. [facility], [address] [id number] [facility] 2019-12-30 10:00:00 2019-12-30 10:00:00 Appointment; NILESH ZIEGLER P.A. CAMPOS, BERTHA, P.A. [facility] [id number] [facility] 2019-11-14 00:00:2019-11-14 00:00:00 Outpatient ADRIÁN SILVA [facility] [id number] [facility] 2019-11-13 10:00:00 2019-11-13 10:00:00 Appointment; ABEL SMITH M.D. NASSIF, JULIA, M.D. [facility], [address] [id number] [facility] 2019-10-24 10:15:2019-10-24 10:15:00 Appointment; NILESH ZIEGLER P.A. CAMPOS, BERTHA, P.A. [facility], [address] [id number] [facility] 2019-10-04 00:00:00 2019-10-04 00:00:00 Outpatient ADRIÁN SILVA [facility] 021 [id number] [facility] 2019-08-13 10:00:00 2019-08-13 10:00:00 Appointment; ABEL SMITH M.D. NASSIF, JULIA, M.D. [facility], [address] [id number] [facility] 2019-08-05 00:00:00 2019-08-05 00:00:00 Outpatient SILVAADRIÁN MARIN [facility] [id number] [facility] 2019-03-12 09:30:00 2019-03-12 09:30:00 Appointment; ABEL SMITH M.D. NASSIF, JULIA, M.D. [facility], [address] [id number] [facility] 2018-12-06 09:30:00 2018-12-06 09:30:00 Appointment; ABEL SMITH M.D. NASSIF, JULIA, M.D. [facility] [address] [id number] [facility] 2018-11-28 10:45:00 2018-11-28 10:45:00 Appointment; CHARLIE ABAD AP RN TRAN, THUY, APRN [facility] [id number] [facility] 2018-08-22 09:30:00 2018-08-22 09:30:00 Appointment; GRACIE SCOTT A PRN SAXE, KAILA, APRN [facility] [id number] [facility] 2018-07-17 10:00:00 2018-07-17 10:00:00 Appointment; ABEL SIMTH M.D. NASSIF, JULIA, M.D. [facility] [address] [id number] [facility] 2018-04-16 13:00:00 2018-04-16 13:00:00 Appointment; ABEL SMITH M.D. NASSIF, JULIA, M.D. [facility] [address] [id number] [facility] 2018-02-23 13:30:00 2018-02-23 13:30:00 Appointment; SU DAO NP TEJADA-FOSTER, NORMA, NP [facility] [id number] [facility] 2017-12-27 11:30:00 2017-12-27 11:30:00 Appointment; ABEL SMITH M.D. NASSIF, JULIA, M.D. [facility] [address] [id number] [facility] 2017-09-28 11:30:00 2017-09-28 11:30:00 Appointment; ABEL SMITH M.D. NASSIF, JULIA, M.D. [facility] [id number] [facility] 2017-09-18 10:30:00 2017-09-18 10:30:00 Appointment; NILESH ZIEGLER P.A. CAMPOS, BERTHA, P.A. [facility] [id number] [facility] 2017-09-07 08:00:00 2017-09-07 08:00:00 Appointment; NILESH ZIEGLER P.A. CAMPOS, BERTHA, P.A. [facility] [id number] [facility] 2017-06-28 10:00:00 2017-06-28 10:00:00 Appointment; ABEL SMITH M.D. NASSIF, JULIA, M.D. [facility] [id number] [facility] 2017-06-01 13:30:00 2017-06-01 13:30:00 Appointment; JONI SO P.A. SPOONER, JOSEPH, P.A. UTP UTP [id number] [facility] 2017-05-19 08:45:00 2017-05-19 08:45:00 Appointment; RUBEN PEÑALOZA M.D. LI-YUNG HING, ANDREW, M.D. [facility] UTP [id number] [facility] 2017-04-17 11:00:00 2017-04-17 11:00:00 Appointment; JONI SO P.A. SPOONER, JOSEPH, P.A. UTP UTP [id number] [facility] 2017-04-17 08:00:00 2017-04-17 08:00:00 Appointment; RUBEN PEÑALOZA M.D. LI-YUNG HING, ANDREW, M.D. [facility] UTP [id number] [facility] 2017-04-03 10:00:00 2017-04-03 10:00:00 Appointment; JONI SO P.A. SPOONER, JOSEPH, P.A. UTP UTP [id number] [facility] 2017-03-15 11:00:00 2017-03-15 11:00:00 Appointment; JONI SO P.A. SPOONER, JOSEPH PReji GARCIA UTP [id number] [facility] 2017-02-24 11:15:00 2017-02-24 11:15:00 Appointment; NIELSH ZIEGLER P.A. CAMPOS, BERTHA, P.A. UTP UTP [id number] [facility] 2017-01-25 11:30:00 2017-01-25 11:30:00 Appointment; ABEL SMITH M.D. NASSIF, JULIA, M.D. UTP UTP [id number] [facility] 2016-12-01 12:45:00 2016-12-01 12:45:00 Appointment; NILESH ZIEGLER P.A. CAMPOS, BERTHA, PToyAToy UTP UTP [id number] [facility] 2016-10-27 11:15:00 2016-10-27 11:15:00 Appointment; NILESH ZIEGLER P.A. CAMPOS, BERTHA, P.A. UTP UTP [id number] [facility] 2016-10-24 14:30:00 2016-10-24 14:30:00 Appointment; ABEL SMITH M.D. NASSIF, JULIA, M.D. UTP UTP [id number] [facility] 2016-08-03 10:30:00 2016-08-03 10:30:00 Appointment; ROBERT FIGUEREDO NP HOANG, CHRISTINA, NP UTP UTP [id number] [facility] 2016-05-23 08:30:00 2016-05-23 08:30:00 Appointment; ABEL SMITH M.D. NASSIF, JULIA, M.D. UTP UTP [id number] [facility] 2016-04-21 10:30:00 2016-04-21 10:30:00 Appointment; NILESH ZIEGLER P.A. CAMPOS, BERTHA, P.A. UTP UTP [id number] [facility] 2016-03-26 10:15:00 2016-03-26 10:15:00 Appointment; CHARLIE ABAD NP TRAN, THUY, NP UTP UTP [id number] [facility] 2016-03-17 09:15:00 2016-03-17 09:15:00 Appointment; NILESH ZIEGLER P.A. CAMPOS, BERTHA, P.A. UTP UTP [id number] [facility] 2016-02-01 08:00:00 2016-02-01 08:00:00 Appointment; ABEL SMITH M.D. NASSIF, JULIA M.D. UTP UTP [id number] [facility] 2016-01-04 09:30:00 2016-01-04 09:30:00 Appointment; NILESH ZIEGLER P.A. CAMPOS, BERTHA, P.A. UTP UTP [id number] [facility] 2015-11-30 09:15:00 2015-11-30 09:15:00 Appointment; NILESH ZIEGLER P.A. CAMPOS, BERTHA, P.A. UTP UTP [id number] [facility] 2015-11-27 10:15:00 2015-11-27 10:15:00 Appointment; NILESH ZIEGLER P.A. CAMPOS, BERTHA, P.A. UTP UTP [id number] [facility] 2015-11-16 11:00:00 2015-11-16 11:00:00 Appointment; JASON JACOBSON M.D. SHACKELFORD, JAMES, M.D. UTP UTP [id number] [facility] 2015-11-02 08:00:00 2015-11-02 08:00:00 Appointment; ABEL SMITH M.D. NASSIF, JULIA, M.D. UTP UTP [id number] [facility] 2015-10-26 10:30:00 2015-10-26 10:30:00 Appointment; NILESH ZIEGLER P.A. CAMPOS, BERTHA, P.A. UTP UTP [id number] [facility] 2015-10-07 13:45:00 2015-10-07 13:45:00 Appointment; DEISY LECHUGA P.A. CRUZ, LETICIA PJose. UTP UTP [id number] [facility] 2015-08-26 13:00:00 2015-08-26 13:00:00 Appointment; DEL BEST N P BECK, SHERI, NP UTP UTP [id number] [facility] Results Test Description Test Time Test Comments Results Result Comments Source CHEST SINGLE (PORTABLE) 2020-06-07 20:41:00 [place] [address] Patient Name: ALEX ALMONTE MR #: [id number] : 1950 Age/Sex: 69/F Req #: [id number] [facility] Physician: Ordered by: AREN DANIELS MD Report #: [id number] Location: ER Room/Bed: Procedure: [id number] DX/CHEST SINGLE (PORTABLE) Exam Date: Exam Time: [...] Clin. Lipidol. 2015;9:129-169. LDL-CHOLESTEROL (test code = 25505-5) See Comment LDL cholesterol not calculated. Triglyceride [...] SS et al. CHARLIE. 2013;310(19): 2061- 2068 (http://education.[employer]faq/TKV151) CHOL/HDLC RATIO (test code = CHOL/HDLC RATIO) [...] <70 mg/dL) is considered a therapeutic option. [facility][QL] CMP W/[id number] 08:18:00* Test Item Value Reference Range Interpretation [...] is approximately 13% higher for peopleidentified as -Mozambican. eGFR NON-AFR. PALESTINIAN (test code = eGFR NON-AFR. PALESTINIAN) 51 {ML/MIN/1.7} > OR = 60 eGFR [...] N BILIRUBIN, TOTAL; Normal (test code = 26873-7) 0.5 mg/dl 0.2-1.2 N ALKALINE PHOSPHATASE (test code = ALKALINE PHOSPHATASE) 67 u/l 37-153 N AST; Normal (test code = 1916-6) 14 u/l 10-35 N ALT; Normal (test code = 1742-6) 9 u/l 6-29 N [facility][QL] VITAMIN D, 25-HYDROXY, LC/MS/[id number] 08:18:00* Test Item Value Reference Range Interpretation Comments VITAMIN D,25-OH,TOTAL,IA (test code = VITAMIN D,25-OH,TOTAL,IA) 21 ng/ml 30-100 Vitamin D Status 25-OH Vitamin D : Deficiency: <20 ng/mLInsufficiency: 20 - 29 ng/mLOptimal: > or = 30 ng/mL For 25-OH Vitamin D testing on patients on D2-supplementation and patients for whom quantitation of D2 and D3 fractions is required, the [facility]25-OH VIT D, (D2,D3), LC/MS/MS is recommended: order code 30683 (patients >2yrs).See Note 1 Note 1 For additional information, please refer to http://education.[employer]faq/RMU634 (This link is being provided for informational/educational purposes only.) [facility][] LIPID [id number] 08:23:00* Test Item Value Reference Range Interpretation [...] Clin. Lipidol. 2015;9:129-169. LDL-CHOLESTEROL (test code = 67257-9) See Comment LDL cholesterol not calculated. Triglyceride [...] STAFFORD et al. CHARLIE. 2013;310(19): 2061- 2068 (http://education.[employer]faq/FIQ013) CHOL/HDLC RATIO (test code = CHOL/HDLC RATIO) [...] <70 mg/dL) is considered a therapeutic option. [facility][QL] MICROALBUMIN, RANDOM URINE (W/CREATININE) 2020-02-17 [...] a patient to bewithin a diagnostic category. [facility][QL] CMP W/[id number] 08:23:00* Test Item Value Reference Range Interpretation [...] is approximately 13% higher for peopleidentified as -Mozambican. eGFR NON-AFR. PALESTINIAN (test code = eGFR NON-AFR. PALESTINIAN) 47 {ML/MIN/1.7} > OR = 60 eGFR [...] N BILIRUBIN, TOTAL; Normal (test code = 86300-9) 0.4 mg/dl 0.2-1.2 N ALKALINE PHOSPHATASE (test code = ALKALINE PHOSPHATASE) 81 u/l 37-153 N AST; Normal (test code = 1916-6) 14 u/l 10-35 N ALT; Normal (test code = 1742-6) 7 u/l 6-29 N [facility][QL] CBC (INCLUDES DIFF/PLT)2020-02-17 08:23:00* Test Item Value Reference Range Interpretation Comments WHITE BLOOD CELL COUNT (test code = WHITE BLOOD CELL COUNT) 4.6 {Thousand/u} 3.8-10.8 N RED BLOOD CELL COUNT (test code = RED BLOOD CELL COUNT) 4.12 {Million/uL} 3.80-5.10 N HEMOGLOBIN; Normal (test code = 63679-6) 12.1 g/dl 11.7-15.5 N HEMATOCRIT; Normal (test code = 4544-3) 36.3 % 35.0-45.0 N MCV; Normal (test code = 787-2) 88.1 fL 80.0-100.0 N MCHC; Normal (test code = 16371-9) 33.3 g/dl 32.0-36.0 N RDW; Normal (test code = 788-0) 13.7 % 11.0-15.0 N PLATELET COUNT; Normal (test code = 777-3) 213 {Thousand/u} 140-400 N MPV; Normal (test code = 05079-3) 11.5 fL 7.5-12.5 N ABSOLUTE NEUTROPHILS (test code = ABSOLUTE NEUTROPHILS) 2972 {cells/uL} 8995-7587 N ABSOLUTE LYMPHOCYTES (test code = ABSOLUTE [...] % N MONOCYTES; Normal (test code = 97468-4) 10.1 % N EOSINOPHILS; Normal (test code = 38651-0) 2.6 % N BASOPHILS; Normal (test code = 83392-0) 0.9 % N [facility][QL] TSH, 3RD GENERATION W/REFLEX TO [id number] 08:23:00* Test Item Value Reference Range Interpretation Comments TSH, 3RD GENERATION W/REFLEX TO FT4 (reymundo t code = TSH, 3RD GENERATION W/REFLEX TO FT4) 3.08 {MIU/L} 0.40-4.50 N [facility][QL] VITAMIN D, 25-HYDROXY, LC/MS/[id number] 08:23:00* Test Item Value Reference Range Interpretation [...] D, (D2,D3), LC/MS/MS is recommended: order code 77633 (patients >2yrs).See Note 1 Note 1 For additional information, please refer to http://education.[employer]/faq/UVH924 (This link is being provided for informational/educational purposes only.) [facility]2020-[facility]-13 11:25:00* Test Item Value Reference Range Interpretation Comments Glucose POC Lif[employer]can (test code = Glucose POC Lifescan) 82 [facility][O] Hemoglobin A1c (in office)2020-02-13 11:25:00 * Test Item Value Reference Range Interpretation Comments HEMOGLOBIN A1c (test code = 4548-4) 7.3 [facility])2019-11-13 10:12:00* Test Item Value Reference Range Interpretation Comments Glucose POC [employer] (test code = Glucose POC Lifescan) 127 [facility][O] Hemoglobin A1c (in office)2019-11-13 10:12:00 * Test Item Value Reference Range Interpretation Comments HEMOGLOBIN A1c (test code = 4548-4) 7.5 [facility]icians[facility] [id number] 16:27:54* Test Item Value Reference Range Interpretation Comments Case number (test code = 9413369) [id number] Surgical pathology report (test code = 2255) See link below for PDF Lab Report Result status (test code = 1384405) This is Final Report for [id number] [facility] [id number] 11:24:50* Test Item Value Reference Range Interpretation Comments POC glucose (test code = 92558-7) 207 mg/dL 65-99 H Laboratory Equipment Installer Name: Miguel Aggarwal ID: [id number] Lab Interpretation (test code = 06151-8) [facility]normal [facility]pmkew0256-48-40 08:55:14Katya Last 10/04/2019 8:55 AMAirwayPerformed by: Katya LastAuthorized by: Abhi Mcneil MD Location: ORUrgency: ElectiveDifficult Airway: No Anesthesiologist: Abhi Mcneil MDResijenit/PATIENT ACCOUNTS MANAGER/AA: Katya LastPerformed by: resident/PATIENT ACCOUNTS MANAGER/AAPreoxygenated with 100% O2: Yes C-spine Precautions Maintained [...] Number of Attempts at Approach: 1[facility] MethodistHemoglobin [id number] 15:27:10* Test Item Value Reference Range Interpretation Comments Hemoglobin A1C (test code = 92464-4) 7.0 % 4-5.6 H HbA1c cutoffs for diagnosing diabetes:4.0% - 5.6% = normal5.7% - 6.4% = increased risk for diabetes (prediabetes)9>=6.5% = ngyddxrz9Kmrcv for glycemic control (ADA 2016)< 7.0% Target for non adults with diabetes. More or less stringent targets may be appropriate for individual patients. <7.5% Target for Children and adolescents with type 1 diabetes. Lab Interpretation (test code = 14408-6) Abnormal [facility] and [id number] 15:22:00* Test Item Value Reference Range Interpretation Comments ABO grouping (test code = 883-9) O Rh type (test code = 64320-9) NEG Antibody screen (gel) (test code = 890-4) NEG [facility]Basic metabolic [id number] 14:53:06* Test Item Value Reference Range Interpretation Comments Sodium (test code = 2951-2) 140 135- 148 mEq/L Potassium (test code = 2823-3) 4.7 3.5- 5.0 mEq/L Chloride (test code = 2075-0) 101 98- 112 mEq/L CO2 (test code = 2027-9) 23 24- 31 mEq/L L Anion gap (test code = 46282-8) 16@ANIO 7- 15 mEq/L H BUN (test code = 3094-0) 31 mg/dL 8-23 H Creatinine (test code = 2160-0) 1.00 mg/dL 0.5-0.9 H Glucose (test code = 2345-7) 383 mg/dL 65-99 H Calcium (test code = 12482-9) 10.8 mg/dL 8.8-10.2 H Lab Interpretation (test code = 31951-7) Abnormal [facility] MethodistEstimated [id number] 14:53:05* Test Item Value Reference Range Interpretation Comments Estimated GFR (test code = 5488) 58 mL/min/1.73 m2 A Catergory Units InterpretationG1 >=90 Normal or highG2 60-89 Mildly rvvcbllwjG0h 45-59 Mildly to moderately tdgjjqbiyZ6j 30-44 Moderately to severely decreasedG4 15-29 Severely decreasedG5 <15 Kidney failureThe eGFR was calculated using the Chronic Kidney Disease Epidemiology Collaboration (CKD-EPI) equation. Interpretation is based on recommendations of the National Kidney Foundation-Kidney Disease Outcomes Quality Initiative (NKF-KDOQI) published in 2014. Lab Interpretation (test code = 68720-2) Abnormal [facility] MethodistECG 12 [id number] 14:40:59* Test Item Value Reference Range Interpretation Comments Ventricular rate (test code = 253) 94 Atrial rate (test code = 255) 94 AK interval (test code = 266) 198 QRSD [...] has increased BY 36 BPM-QT has lengthened- [facility] MethodistCBC with platelet and vzlkfyrpinrj2873-66-22 14:37:08* Test Item Value Reference Range Interpretation Comments WBC (test code = 18686-5) 5.23 4.50- 11.00 k/uL RBC (test code = 95731-6) 4.21 m/uL 4.2-5.5 HGB (test code = 718-7) 12.2 g/dL 12-16 HCT (test code = 4544-3) 37.7 % 37-47 MCV (test code = 787-2) 89.5 fL 82-100 MCH (test code = 785-6) 29.0 pg 27-34 MCHC (test code = 786-4) 32.4 g/dL 31-37 RDW - SD (test code = 25096-7) 46.3 fL 37-55 MPV (test code = 79525-5) 11.5 fL 8.8-13.2 Platelet count (test code = 51157-9) 199 150- 400 k/uL Nucleated RBC (test code = 00642-8) 0.00 /100 WBC Neutrophils (test code = 83036-4) 72.8 % 39-69 H Lymphocytes (test code = 47799-0) 15.3 % 25-45 L Monocytes (test code = 60414-8) 8.4 % 0-10 Eosinophils (test code = 40839-7) 2.3 % 0-5 Basophils (test code = 56966-9) 0.8 % 0-1 Lab Interpretation (test code = 22650-3) Abnormal [facility]] MICROALBUMIN, RANDOM URINE (W/CREATININE)2019-08-13 11:10:01* Test Item Value Reference Range Interpretation Comments Urine Microalbumin (test code = Urine Microalbumin) 235.0 mg/L No established reference range. U Creatinine (test code = 2161-8) 64.30 mg/dl No established reference range. Urine Microalbuming Creatinine Ratio; Ab ove High Threshold (test code = 64664-6) 365.5 mg/g <=30.0 [facility][O] Hemoglobin A1c (in office)2019-08-13 10:15:00 * Test Item Value Reference Range Interpretation Comments HEMOGLOBIN A1c (test code = 4548-4) 7.3 [facility]iciansGlucose (Point of Care In Office)2019-08-13 10:14:00* Test Item Value Reference Range Interpretation Comments Glucose POC Lifescan (test code = Glucose POC Lifescan) 104 [facility]FL HADLEY W [id number] 10:03:06Hm Interface, Radiology Results - 08/05/2019 10:06 AM CSTEXAMINATION: TAMARA TELLOBCLINICAL HISTORY: Z98.84 Bariatric surgery status, I10 Essential (primary) hypertension, Esophageal refluxCOMPARISON: None.TECHNIQUE: UPPER GI SERIES was performed with barium.FLUOROSCOPIC TIME: 1 minute 12 secondsTotal number of fluoroscopic images: 22IMPRESSION:Deep Submergence Vehicle Crewmember radiograph of the abdomen demonstrates an indwelling [...] emptying into the duodenum.No gastroesophageal reflux was observed.[id number] MethodistGlucose (Point of Care In Office) 2019-03-12 09:35:00* Test Item Value Reference Range Interpretation Comments Glucose POC Lifescan (test code = Glucose POC Lifescan) 124 [facility][O] Hemoglobin A1c (in office)2019-03-12 09:35:00 * Test Item Value Reference Range Interpretation Comments HEMOGLOBIN A1c (test code = 4548-4) 6.7 [facility][O] Hemoglobin A1c (in office)2018-12-06 09:32:00 * Test Item Value Reference Range Interpretation Comments HEMOGLOBIN A1c (test code = 4548-4) 7.5 [facility])2018-12-06 09:32:00* Test Item Value Reference Range Interpretation Comments Glucose POC Lifescan (test code = Glucose POC Lifescan) 118 [facility][O] Urine Dipstick (In Office)2018-11-28 10:56:00 * Test Item Value Reference Range Interpretation Comments Glucose (test code = Glucose) 100 A LEUKOCYTES (test code = LEUKOCYTES) ++ A NITRITE; Normal (test code = 46284-4) Negative N UROBILINOGEN; Normal (test code = 29222-3) Negative N PROTEIN; Abnormal (test code = 06248-4) Trace A pH (test code = pH) 5 URINE BLOOD; Normal (test code = 60870-6) Negative N SPECIFIC GRAVITY (test code = 2965-2) 1.020 KETONES; Normal (test code = 92048-7) Negative N BILIRUBIN; Normal (test code = 54379-8) Negative N COLOR URINE; Normal (test code = 5778-6) Yellow N [facility]] URINALYSIS, COMPLETE W/REFLEX TO CULTURE 2018-11-28 00:00:00* [...] NEGATIVE A BILIRUBIN; Normal (test code = 72955-6) NEGATIVE NEGATIVE N KETONES; Normal (test code = 49346-6) NEGATIVE NEGATIVE N OCCULT BLOOD; Normal (test code = 23529-5) NEGATIVE NEGATIVE N PROTEIN; Normal (test code = 66201-4) NEGATIVE NEGATIVE N NITRITE (test code = NITRITE) NEGATIVE NEGATIVE N LEUKOCYTE ESTERASE (test code = LEUKOCYTE ESTERASE) 2+ NE GATIVE A WBC; Abnormal (test code = 6690-2) 6-10 < OR = 5 A RBC; Normal (test code = 789-8) 0-2 < OR = 2 N SQUAMOUS EPITHELIAL CELLS (test code = 94720-7) 0-5 < OR = 5 TRANSITIONAL EPITHELIAL CELLS (test code = 47967-3) 0-5 < OR = 5 BACTERIA; Abnormal (test code = 630-4) MANY NONE SEEN A HYALINE CAST; Normal (test code = 48894-3) NONE SEEN NONE SEEN N [facility][] REFLEXIVE URINE [id number] 00:00:00* Test Item Value Reference Range Interpretation Comments REFLEXIVE URINE CULTURE (test code = REFLEXIVE URINE C ULTURE) CULTURE INDICATED - RESULTS TO FOLLOW [facility]] CULTURE, URINE, [id number] 00:00:00* Test Item Value Reference Range Interpretation Comments CULTURE (test code = CULTURE) See Comment CULTURE, URINE, ROUTINE MICRO NUMBER: [id number] TEST STATUS: FINAL SPECIMEN SOURCE: URINE SPECIMEN QUALITY: ADEQUATE RESULT: Three or more organisms present, each greater than 10,000 cu/mL. May represent normal luisa contamination from external genitalia. No further testing is required. [facility]iciansMAMMOGRAPHY DIGITAL DX UNI [id number] 09:15:00 [facility] [address] [place] [address] Patient Name: ALEX ALMONTE MR #: [id number] : 951 Age/Sex: 68/F Req #: [id number] Adm Physician: Ordered by: DIOR DORMAN DO Report #: [id number] Location: MAMMO Room/Bed: Procedure: [id number] MG/MAMMOGRAPHY DIGITAL DX UNI RT Exam Date: 10/10/18 Exam Time: 0845 REPORT STATUS: Si ed #[id number] - MGDXRT #UNILATERAL RIGHT DIGITAL DIAGNOSTIC MAMMOG ANDERSON WITH SPOT COMPRESSION: 10/10/2018 Comparison is made to exam dated: 2017 mammogram - [facility]. Current study contains 2 films. There are [...] results. Onel Manuel Jr., D.O. cw/:10/10/2018 12:33:36 Senior Economist: Violette Rico RT(R) (M), [facility] letter sent: Normal Exam Mammogram BI-RADS: 2 Benign Dictated By: ONEL MANUEL DO 1233 Transcribed By: GUNJAN on 10/10/18 1233 COPY TO: DIOR DORMAN DO MAMMOGRAPHY DIGITAL SCR [id number] 09:58:00 [place] [address] Patient Name: ALEX ALMONTE MR #: [id number] : 1950 Age/Sex: 68/F Req #: [id number] Adm Physician: Ordered by: DIOR DORMAN DO Report #: [id number] Location: MAMMO Room/Bed: Procedure: [id number]/MAMMOGRAPHY DIGITAL SCR BILAT Exam Date: 09/10/18 Exam Time: 0916 REPORT STATUS: Sign ed #[id number] - MGSCRBIL #BILATERAL DIGITAL SCREENING MAMMOGRAM WITH CAD: 09/10/2018 CLINICAL: Routine screening. Comparison is made to milagro bailey dated: 09/10/2013 mammogram - [facility]. Current study cont ains 8 films. There [...] cw/:09/17/2018 14:00:01 Imaging Technolog ist: Violette CHAPIN)(Princess), [facility] letter sent: Additional Imaging Needed Mammogram BI-RADS: 0 Indeterminate Dictated By : ONEL MANUEL DO 1400 Transcribed By: GUNJAN on 09/17/18 1400 COPY TO: DIOR DORMAN DO [O] Flu Test (in Office )2018-08-22 00:00:00* Test Item Value Reference Range Interpretation Comments Flu A (test code = Flu A) negative Flu B (test code = Flu B) negative [facility] (Point [facility] In Office)2018-07-17 10:05:00* Test Item Value Reference Range Interpretation Comments Glucose POC Lifescan (test code = Glucose POC Lifescan) 138 [facility][O] Hemoglobin A1c (in office)2018-07-17 10:05:00 * Test Item Value Reference Range Interpretation Comments HEMOGLOBIN A1c (test code = 4548-4) 6.4 [facility]] LIPID [id number] 08:40:00* Test Item Value Reference Range Interpretation Comments CHOLESTEROL, TOTAL; Above High Threshold (test code = 2093-3) 240 m g/dl <200 HDL CHOLESTEROL; Below Low Threshold (test code = 2085-9) 45 mg/dl >50 TRIGLYCERIDES; Above High Threshold (test code = 2571-8) 324 mg/dl <150 LDL-CHOLESTEROL; Above High Threshold (test code = 04210-0) 145 {MG/DL LONA} Reference range: <100 Desirable range <1 00 mg/dL for primary prevention; <70 mg/dL for patients with CHD or diabetic patients with > or = 2 CHD risk factors. LDL-C is now calculated using the Tenzin calculation, which is a validated novel method providing better accuracy than the Friedewald equation in the estimation of LDL-C. Brenden STAFFORD et al. CHARLIE. 2013;310(19): 9871-2311 (http ://education.[employer]/faq/DWT320) CHOL/HDLC RATIO (test code = CHOL/HDLC RATIO) 5.3 {CALC} <5.0 NON HDL CHOLESTEROL (test code = NON HDL CHOLESTEROL) 195 {MG/DL C AL} <130 For patients with diabetes plus 1 major ASCVD risk factor, treating to a non-HDL-C goal of <100 mg/dL (LDL-C of <70 mg/dL) is considered a therapeutic option. [facility]] CMP [id number] 08:40:00* Test Item Value Reference Range Interpretation [...] is approximately 13% higher for peopleidentified as -Mozambican. eGFR NON- (test code = eGFR NON-MARK N PALESTINIAN) 49 {ML/MIN/1.7} > OR = 60 eGFR [...] N BILIRUBIN, TOTAL; Normal (test code = 47562-7) 0.5 mg/dl 0.2-1.2 N ALKALINE PHSPHATASE (test code = ALKALINE PHSPHATASE) 49 u/l 33-130 N AST; Normal (test code = 1916-6) 17 u/l 10-35 N ALT; Normal (test code = 1742-6) 8 u/l 6-29 N [facility]] MICROALBUMIN, RANDOM URINE (W/CREATININE) 2018-07-10 08:40:00* Test [...] a patient to bewithin a diagnostic category. [facility] (Point [facility] In Office)2018-04-16 13:07:00* Test Item Value Reference Range Interpretation Comments Glucose POC Lifescan (test code = Glucose POC Lifescan) 131 [facility][O] Hemoglobin A1c (in office)2018-04-16 13:07:00 * Test Item Value Reference Range Interpretation Comments HEMOGLOBIN A1c (test code = 4548-4) 7.3 [facility]] LIPID [id number] 08:04:00* Test Item Value Reference Range Interpretation Comments CHOLESTEROL, TOTAL; Above High Threshold (test code = 2093-3) 283 m g/dl <200 HDL CHOLESTEROL; Below Low Threshold (test code = 2085-9) 37 mg/dl >50 TRIGLYCERIDES; Above High Threshold (test code = 2571-8) 754 mg/dl <150 LDL-CHOLESTEROL (test code = 98851-5) See Comment LDL cholesterol not calculated. Triglyceride [...] STAFFORD et al. CHARLIE. 2013;310(19): 2061- 2068 (http://education.[employer]faq/FXT845) CHOL/HDLC RATIO (test code = CHOL/HDLC RATIO) [...] <70 mg/dL) is considered a therapeutic option. [facility]] CMP [id number] 08:04:00* Test Item Value Reference Range Interpretation [...] is approximately 13% higher for peopleidentified as -Mozambican. eGFR NON- (test code = eGFR NON-MARK N PALESTINIAN) 57 {ML/MIN/1.7} > OR = 60 eGFR [...] N BILIRUBIN, TOTAL; Normal (test code = 82006-2) 0.6 mg/dl 0.2-1.2 N ALKALINE PHSPHATASE (test code = ALKALINE PHSPHATASE) 84 u/l 33-130 N AST; Normal (test code = 1916-6) 17 u/l 10-35 N ALT; Normal (test code = 1742-6) 10 u/l 6-29 N [facility]] MICROALBUMIN, RANDOM URINE (W/CREATININE) 2018-01-04 [...] a patient to bewithin a diagnostic category. [facility][O] Hemoglobin A1c (in office)2017-12-27 11:33:00 * Test Item Value Reference Range Interpretation Comments HEMOGLOBIN A1c (test code = 4548-4) 6.3 [facility] ([facility])2017-12-27 11:32:00* Test Item Value Reference Range Interpretation Comments Glucose POC Lifescan (test code = Glucose POC Lifescan) 101 [facility][O] Hemoglobin A1c (in office)2017-09-28 11:55:00 * Test Item Value Reference Range Interpretation Comments HEMOGLOBIN A1c (test code = 4548-4) 8.1 [facility] ([facility])2017-09-28 11:53:00* Test Item Value Reference Range Interpretation Comments Glucose POC Lifescan (test code = Glucose POC Lifescan) 216 [facility]
[2020-06-08] VITALS (8 sets, daily range): BP systolic 139–170; BP diastolic 71–96
[2020-06-08] MEDS: NITROGLYCERIN 2% OINT 1 GM PKT TOP SCH ×3 (01:38→11:56)
[2020-06-08 03:47] LABS: CREATINE KINASE MB 1.7 ng/mL (0-5.0)
[2020-06-08] MEDS ORDERED: POLYETHYLENE GLYCOL 3350 17 GM PACK PO PRN (04:15)
[2020-06-08] MEDS ORDERED: METOPROLOL TARTRATE INJ 1 MG/ML VIAL IV PRN (04:15)
[2020-06-08] MEDS ORDERED: TEMAZEPAM 7.5 MG CAP PO PRN (04:15)
[2020-06-08 04:35] LABS: BASOPHILS % 0.9 % (0.0-1.0); EOSINOPHILS # (AUTO) 0.1 (0.0-0.4); EOSINOPHILS % 1.8 % (0.0-6.0); HEMATOCRIT 34.6 % (34.2-44.1); HEMOGLOBIN 11.5 g/dL (12.0-16.0); LYMPHOCYTES # (AUTO) 1.1 (1.0-3.2); LYMPHOCYTES % 24.2 % (18.0-39.1); MEAN CORPUSCULAR HEMOGLOBIN 29.6 pg (28-32); MEAN CORPUSCULAR HGB CONC 33.2 g/dL (31-35); MEAN CORPUSCULAR VOLUME 88.9 fL (81-99); MONOCYTES # (AUTO) 0.6 (0.2-0.8); MONOCYTES % 12.8 % (4.4-11.3); NEUTROPHILS # (AUTO) 2.6 (2.1-6.9); NEUTROPHILS % 59.4 % (38.7-80.0); PLATELET COUNT 211 x10e3/uL (140-360); RED BLOOD COUNT 3.89 x10e6/uL (3.6-5.1); RED CELL DISTRIBUTION WIDTH 14.2 % (11.7-14.4)
[2020-06-08 05:00] LABS: ALBUMIN 4.1 g/dL (3.5-5.0); ALBUMIN/GLOBULIN RATIO 1.4 (0.8-2.0); ANION GAP 17.1 mmol/L (8-16); CALCIUM 10.2 mg/dL (8.4-10.2); CREATININE, SERUM 1.14 mg/dL (0.57-1.11); MAGNESIUM 1.6 MG/DL (1.3-2.1); PHOSPHORUS 2.9 MG/DL (2.3-4.7); POTASSIUM 4.1 mmol/L (3.5-5.1)
[2020-06-08 05:22] LABS: THYROID STIMULATING HORMONE 3.38 uIU/mL (0.350-4.940)
[2020-06-08] MEDS: ACETAMINOPHEN 325 MG TAB PO PRN ×2 (06:15→17:22)
[2020-06-08 07:08] LABS: CHOL/HDL RATIO 9.2 (3.0-3.6); CHOLESTEROL 341 MD/DL (0-199); HDL CHOLESTEROL 37 MG/DL (40-60)
--- NOTE | 2020-06-08 07:15 | NUR ---
PATIENT AMBULATED TO BATHROOM WITHOUT ANY DIFFICULTY. RECEIVED REPORT FROM REBAR FABRICATOR. PATIENT LEFT WRIST IV PATENT, GOOD BLOOD RETURN PATIENT A/0X3. OBTAINED MEDICATION LIST. UPDATED ON PLAN.
[2020-06-08 07:24] LABS: TRIGLYCERIDES 1662 MG/DL (0-149)
[2020-06-08] MEDS ORDERED: NOVOLIN R100 UNIT/1 SQ (07:47)
[2020-06-08] MEDS ORDERED: CARVEDILOL12.5 MG PO (07:47)
[2020-06-08] MEDS ORDERED: NOVOLIN N100 UNIT/1 SQ ×2 (07:47)
[2020-06-08] MEDS ORDERED: [UNRECOGNIZED DRUG - OTHER] PO (07:47)
[2020-06-08] MEDS ORDERED: IBUPROFEN200 MG PO (07:47)
[2020-06-08] MEDS ORDERED: ALLEGRA ALLERGY60 MG PO (07:47)
--- NOTE | 2020-06-08 08:00 | NUR ---
PATIENT SITTING ON SIDE OF BED EATING BREAKFAST
[2020-06-08] MEDS: INSULIN REGULAR, HUMAN 100 UNIT/1 ML 3ML VIAL SQ SCH ×4 (08:15→21:00)
[2020-06-08] MEDS: FAMOTIDINE 20 MG/2 ML VIAL IV SCH ×2 (08:24→17:21)
[2020-06-08] MEDS: ASPIRIN 81 MG ENTERIC COATED PO SCH (08:25)
--- NOTE | 2020-06-08 08:35 | NUR ---
URINE CUP AT BEDSIDE, PATIENT AWARE WE NEED TO OBTAIN URINE SAMPLE
[2020-06-08] MEDS: DOCUSATE SODIUM 100 MG CAP PO SCH ×2 (09:00→17:21)
[2020-06-08] MEDS ORDERED: ASPIRIN 325 MG TAB EC PO SCH (09:00)
[2020-06-08] MEDS ORDERED: CLOPIDOGREL BISULFATE 75 MG TAB PO SCH (10:30)
--- NOTE | 2020-06-08 11:14 | NUR ---
3rd cardiac marker completed
--- NOTE | 2020-06-08 12:00 | NUR ---
PATIENT SITTING UP IN CHAIR EATING LUNCH
[2020-06-08 12:03] LABS: CREATINE KINASE MB 2.3 ng/mL (0-5.0)
--- NOTE | 2020-06-08 12:37 | NUR ---
DR. RAVI AT BEDSIDE EVALUATING PATIENT
[2020-06-08] MEDS ORDERED: SODIUM CHLORIDE 0.9% 1000ML 1,000 ML IV SCH (12:45)
--- NOTE | 2020-06-08 12:47 | NUR ---
NPO FOR CIVIL DRAFTING TECHNICIAN AT 2
[2020-06-08] MEDS: FENOFIBRATE 145 MG TAB PO SCH (13:00)
[2020-06-08] MEDS ORDERED: HEPARIN SOD (PORCINE) 1000 UNIT/ML 30ML ONE (14:33)
[2020-06-08] MEDS ORDERED: MIDAZOLAM HCL 2 MG/2 ML VIAL ONE ×2 (14:33→16:04)
[2020-06-08] MEDS ORDERED: FENTANYL CITRATE/PF 100MCG/2 ML INJ ONE (14:34)
[2020-06-08] MEDS ORDERED: HEPARIN SOD/SOD CHLORIDE 2,000 ML ONE (14:34)
[2020-06-08] MEDS ORDERED: LIDOCAINE HCL 2% LOCAL 20 ML VIAL ONE (14:34)
[2020-06-08] MEDS ORDERED: IOPAMIDOL 370 MG/ML 200 ML INFUS..BTL INJ ONE (14:34)
[2020-06-08] MEDS ORDERED: SODIUM CHLORIDE 0.9% 1000ML 1,000 ML ONE (14:35)
[2020-06-08] MEDS ORDERED: NITROGLYCERIN/D5W 200 MCG/ML 250 ML ONE (14:43)
[2020-06-08] MEDS ORDERED: SODIUM CHLORIDE 0.9% 50ML 50 ML ONE (15:46)
[2020-06-08] MEDS ORDERED: BIVALRIUDIN 250 MG/VIAL VIAL IV ONE (15:46)
[2020-06-08] MEDS ORDERED: HYDRALAZINE HCL 20 MG/ML VIAL ONE ×2 (15:59→16:24)
[2020-06-08] MEDS ORDERED: CLOPIDOGREL BISULFATE 75 MG TAB ONE (16:18)
[2020-06-08] MEDS ORDERED: ASPIRIN 325 MG TAB ONE (16:18)
[2020-06-08] MEDS ORDERED: ONDANSETRON HCL INJ 2MG/ML 2ML 2 MG/ML VIAL IV PRN (16:30)
[2020-06-08] MEDS ORDERED: CLONIDINE HCL 0.1 MG TAB PO PRN (16:30)
[2020-06-08] MEDS ORDERED: MORPHINE SULFATE INJ 4 MG/ML INJ 1ML IV PRN (16:30)
[2020-06-08] MEDS: SODIUM CHLORIDE 0.9% 1000ML 1,000 ML IV SCH (16:30)
--- NOTE | 2020-06-08 16:36 | NUR ---
2nd LACTIC DRAWN, PATIENT TRANSFERED TO [facility]
[2020-06-08] MEDS ORDERED: CARVEDILOL 12.5 MG TAB PO SCH (17:00)
[2020-06-08] MEDS: CARVEDILOL 12.5 MG TAB PO SCH (17:22)
[2020-06-08] MEDS ORDERED: ACETAMINOPHEN/CODEINE 300MG - 30MG TAB PO PRN (17:30)
--- NOTE | 2020-06-08 18:14 | Consultation ---
DATE OF CONSULTATION: 06/08/2020 Cardiac Consultation REASON FOR CONSULTATION: Unstable coronary syndrome. HISTORY OF PRESENT ILLNESS: This is a 69-year-old lady who is known with hypertension, diabetes mellitus, hypercholesteremia, obesity, status post gastric bypass surgery followed by kevin tinajero. Regarding her coronary artery disease, her problem started in January 2015, where she had PCI and stenting of the LAD. Also patient later on in May, she had PCI to the right coronary artery. Her other problem is sleep apnea. The patient came to here having typical anginal symptoms. She is having quite a lot of stress, pain, shortness of breath, chest tightness, chest pressure. She denied having any orthopnea or paroxysmal nocturnal dyspnea. Her symptoms were very severe, so she checked herself into the ER. Her cardiac enzymes, the 1st and 2nd one are normal. However, patient continued to complain of severe chest pain. Urgent cardiac consultation is obtained. HOME MEDICATIONS: 1. Fenofibrate 54 mg a day. 2. Carvedilol 25 mg twice a day. 3. Plavix 75 mg a day. 4. Irbesartan 300 mg a day. 5. Novolin R and N. 6. Metformin. 7. Advil. ALLERGIES: STATIN CAUSE MYALGIA. PAST MEDICAL HISTORY: 1. PCI and stenting in January 2015 to the LAD, PCI and stenting of the RCA in May 2015, anterior CO in January 2015. 2. Hypertension. 3. Diabetes mellitus with complication. 4. Hypercholesterolemia. 5. Obstructive sleep apnea. 6. History of gastric bypass surgery. 7. Gout. 8. Back pain with sciatica nerve pain. 9. Sleep apnea. 10. Narcolepsy. 11. twice. 12. Kidney stone. 13. Breast surgery. 14. Right Achilles tendon repair. 15. Lap band surgery. SOCIAL HISTORY: She is . She has stopped smoking. She is non-alcohol drinker. She is retired dental hygienist. FAMILY HISTORY: Father at age 65 with heart disease. Mother at age 83 with diabetes mellitus complication. Two sisters. No brother. One sister does have uterine cancer. Two children, one son, one daughter. REVIEW OF SYSTEMS: GENERAL: No fever, no chills. HEENT: Remarkable for occasional vertigo. ENDOCRINE: The patient is diabetic with severe end-organ damage. CARDIAC AND PULMONARY: As per above. GI: Occasional heartburn indigestion. : Increased frequency of urination. History of kidney stone. MUSCULOSKELETAL: Frequent gout flare-up, muscle aches. SKIN: Rashes on both arm. NEUROLOGY: Sleep apnea. PHYSICAL EXAMINATION: GENERAL: A well-built lady, in no acute distress. Height of 5 feet, weight of 174 pounds. HEENT: Pupils are reactive. NECK: No elevation of jugular venous pulsation. CHEST: Clear to auscultation and percussion. HEART: PMI 5th left intercostal space. Normal first and second heart sounds. Scar is noted. ABDOMEN: Soft. No organomegaly. No abdominal bruits. EXTREMITIES: No cyanosis, no clubbing, no edema. NEUROLOGIC: Awake, alert, and oriented. No motor deficits. IMPRESSION AND PLAN: 1. Coronary artery disease with acute unstable angina. 2. History of myocardial infarction, status post percutaneous coronary intervention twice. 3. Diabetes mellitus with end-organ damage. 4. Hyperlipidemia. 5. Hypertension. 6. Diabetes mellitus. 7. Abnormal EKG. We discussed options of workup, the patient really continued to have chest pain, so we again proceed with urgent cardiac catheterization. We will put the patient n.p.o. from now and we will schedule for her procedure. Procedure risks, benefits, and alternatives are discussed and explained. MD BRETT John/DARLINGL /[id number]
[2020-06-08 19:32] LABS: CREATINE KINASE MB 2.1 ng/mL (0-5.0)
--- NOTE | 2020-06-08 19:54 | Operative Report ---
DATE OF PROCEDURE: 06/08/2020 SURGEON: Miguel Abreu MD TITLE OF PROCEDURE: Cardiac catheterization and percutaneous coronary intervention. PATIENT CLINICAL PROFILE: This is a 69-year-old female with a past medical history of coronary artery atherosclerosis with prior stenting to the LAD as well as to the RCA, prior myocardial infarction x2, hypertension, diabetes mellitus, who presented to the emergency department in the setting of unable angina for 18-hour duration, and describing significant chest discomfort and chest tightness, typical of her prior episodes of myocardial ischemia, thus the patient was taken urgently to the cardiac catheterization lab for further evaluation of her coronary artery as well as cardiac status. PREPROCEDURE DIAGNOSES: 1. Coronary artery atherosclerosis with unstable angina. 2. Hypertension. 3. Diabetes mellitus, type 2. 4. Hyperlipidemia. POSTPROCEDURE DIAGNOSES: 1. Coronary artery atherosclerosis with unstable angina. 2. Hypertension. 3. Diabetes mellitus, type 2. 4. Hyperlipidemia. PROCEDURES PERFORMED: Selective coronary angiography, percutaneous coronary intervention of the proximal LAD with a 3.0 x 18 mm Resolute Tenzin drug-eluting stent, deployed at 15 atmospheres pressure. PULLMAN CAR CLERK: Jian Abreu MD ANESTHESIA USED: Moderate sedation. DESCRIPTION OF PROCEDURE: The patient was taken to the cardiac catheterization lab with prepping of bilateral groins as per standard fashion. Risks, benefits, and alternatives were discussed with the patient and she was agreeable to proceed with coronary angiography and possible percutaneous coronary intervention after giving the patient moderate sedation, her vitals, oxygen saturation, capnography, and telemetry were monitored for a period greater than 15-minute duration by myself as well as by the circulating staff. Ultrasound guidance was used to gain access in the right groin and the right common femoral artery with adequate position, confirmed on fluoroscopy. We then subsequently advanced a 4-Yemeni sheath and the patient underwent coronary angiography in standard fashion. First initially with a JL4 4-Yemeni catheter to engage left main selectively and subsequently with a 3DRC 4-Yemeni catheter to engage the RCA selectively, standard orthogonal views were obtained, and the patient tolerated this portion of the procedure well. FINDINGS: 1. Left main coronary artery has minimal luminal irregularities. 2. Circumflex coronary artery is nondominant with approximately 70% more distal stenosis past onset of large obtuse marginal branch. 3. The LAD artery has approximately 85% stenosis, just proximal to a previously placed and to the mid section, there is approximately 40% stenosis as well as minimal luminal irregularities in the mid distal portions of the LAD artery. 4. The right coronary artery is a dominant artery which has a proximal very tight 95% stenosis, and distal to this in the mid RCA is a patent stent, and at the end of these stents, there is a 100% chronic appearing occlusion with no ipsilateral collaterals visualized, however, there are take off at least 3 marginal branches noted. The distal RPDA and RPL territories filled via collaterals from the left system. Given the findings above, we decided that the RCA was likely chronic in nature, given the mature collaterals as well as no contrast staining and we decided to undergo PCI to the proximal LAD, subsequently Angiomax was given for anticoagulation, and we exchanged our 4-Yemeni right MANAGER HEAVY DUTY sheath for a 6-Yemeni sheath and we went up with a XB3.5 guide catheter and engaged the left main coronary artery. We then subsequently used 0.014-inch Runthrough coronary wire and we advanced this into the distal LAD. We used a 2.5 x 15 mm Semi-compliant Balloon to perform angioplasty of the 85% proximal LAD lesion at 14 atmospheres of pressure and this yielded nicely. We then subsequently advanced a 3.0 x 18 mm Resolute drug-eluting stent Tenzin and stented this area proximal to the prior mid LAD stents, and we stented to the proximal aspect to the LAD. We then postdilated the overlap with the Stent Delivery System and we subsequently withdrew this an angiography was adequate and showed a pre-SAM-3 85% stenosis to post SAM-3 0% residual stenosis. We then decided to attempt to wire the RCA lesion in case this was not a BOILERMAKER, so we advanced a 3DRC 6-Yemeni catheter guide catheter and initially wired into one of the marginal branches at the distal aspect of the lumen and then we took a Craft Manager 50 coronary wire and we attempted to probe the proximal BOILERMAKER, however, found that the ambiguous cap as well as the multiple branches arising just proximal to BOILERMAKER made wiring difficult, as such we decided to seize the case at that time, all of her intervention equipment was removed and then a 6-Yemeni Angio-Seal was deployed to the right common femoral artery access with adequate hemostasis. DISPOSITION: Return the patient to the nursing unit and monitored for growing complications. ESTIMATED BLOOD LOSS: 5 mL. CONDITION: Stable. COMPLICATIONS: None. SPECIMENS: None. PLAN: Continue aspirin and Plavix therapy as well as cardiac rehabilitation and aggressive risk factor modification. MD SONI Cobos/MODL /[id number]
[2020-06-08] MEDS ORDERED: ATORVASTATIN 20 MG TAB PO SCH (21:00)
[2020-06-08] MEDS ORDERED: ATORVASTATIN 40 MG TAB PO SCH (21:00)
[2020-06-08] MEDS ORDERED: PROMETHAZINE 25MG/ NS 50ML (IV) IV PRN (21:45)
[2020-06-09] MEDS: SODIUM CHLORIDE 0.9% 1000ML 1,000 ML IV SCH ×2 (03:30→12:30)
[2020-06-09 04:00] VITALS: BP 105/63
[2020-06-09 04:45] LABS: BASOPHILS % 0.5 % (0.0-1.0); EOSINOPHILS # (AUTO) 0.1 (0.0-0.4); EOSINOPHILS % 1.6 % (0.0-6.0); HEMATOCRIT 32.5 % (34.2-44.1); HEMOGLOBIN 10.7 g/dL (12.0-16.0); LYMPHOCYTES # (AUTO) 0.8 (1.0-3.2); LYMPHOCYTES % 13.6 % (18.0-39.1); MEAN CORPUSCULAR HEMOGLOBIN 29.2 pg (28-32); MEAN CORPUSCULAR HGB CONC 32.9 g/dL (31-35); MEAN CORPUSCULAR VOLUME 88.6 fL (81-99); MONOCYTES # (AUTO) 0.6 (0.2-0.8); MONOCYTES % 10.4 % (4.4-11.3); NEUTROPHILS # (AUTO) 4.3 (2.1-6.9); NEUTROPHILS % 73.4 % (38.7-80.0); PLATELET COUNT 188 x10e3/uL (140-360); RED BLOOD COUNT 3.67 x10e6/uL (3.6-5.1); RED CELL DISTRIBUTION WIDTH 14.2 % (11.7-14.4)
[2020-06-09 05:04] LABS: ALBUMIN 3.9 g/dL (3.5-5.0); ALBUMIN/GLOBULIN RATIO 1.6 (0.8-2.0); ANION GAP 16.1 mmol/L (8-16); CALCIUM 9.4 mg/dL (8.4-10.2); CREATININE, SERUM 1.29 mg/dL (0.57-1.11); POTASSIUM 4.1 mmol/L (3.5-5.1)
[2020-06-09 05:22] LABS: CHOL/HDL RATIO 8.4 (3.0-3.6); CHOLESTEROL 304 MD/DL (0-199); HDL CHOLESTEROL 36 MG/DL (40-60); TRIGLYCERIDES 1120 MG/DL (0-149)
[2020-06-09 07:00] VITALS: BP 134/52
[2020-06-09] MEDS: ASPIRIN 81 MG ENTERIC COATED PO SCH (08:08)
[2020-06-09] MEDS: FAMOTIDINE 20 MG/2 ML VIAL IV SCH (08:08)
[2020-06-09] MEDS: DOCUSATE SODIUM 100 MG CAP PO SCH (08:08)
[2020-06-09] MEDS: CARVEDILOL 12.5 MG TAB PO SCH (08:11)
[2020-06-09] MEDS: FENOFIBRATE 145 MG TAB PO SCH (08:11)
[2020-06-09] MEDS: INSULIN REGULAR, HUMAN 100 UNIT/1 ML 3ML VIAL SQ SCH ×2 (08:14→11:56)
[2020-06-09] MEDS ORDERED: CLOPIDOGREL BISULFATE 75 MG TAB PO SCH ×2 (09:00)
[2020-06-09 09:33] VITALS: BP 134/52
[2020-06-09 11:00] VITALS: BP 128/58
[2020-06-09] MEDS ORDERED: CATAPRES0.1 MG PO (14:41)
[2020-06-09] MEDS ORDERED: COLACE100 MG PO (14:41)
[2020-06-09] MEDS ORDERED: LIPITOR20 MG PO (14:41)
[2020-06-09] MEDS ORDERED: COREG12.5 MG PO (14:41)
[2020-06-09] MEDS ORDERED: FENOFIBRATE145 MG PO (14:41)
--- NOTE | 2020-06-09 17:26 | Discharge Summary ---
CONSULTING PHYSICIAN: Dr. Abreu with Cardiology. CHIEF COMPLAINT: Chest pain. HISTORY OF PRESENT ILLNESS: The patient is a 69-year-old female who was admitted with complaints of substernal chest pain described as pressure that began around 6:00 p.m. on 06/07. She had associated dizziness, shortness of breath and diaphoresis. Per Dr. Abreu's consultation note, her problem started in January 2015 when she had PCI and stenting of the LAD. In May, she had PCI to the right coronary artery. She also has sleep apnea. She was having typical and anginal symptoms here with a lot of stress, pain, shortness of breath, chest tightness, and chest pressure. She denied having any orthopnea or paroxysmal nocturnal dyspnea. Her symptoms were severe, so she checked herself into the emergency department. All of her cardiac enzymes are negative. However, the patient continued to complain. PAST MEDICAL HISTORY: Type 2 diabetes mellitus, hypertension, coronary artery disease with stents, hyperlipidemia, and gastroesophageal reflux disease. Anterior NC in January 2015, obstructive sleep apnea, gout, back pain with sciatica nerve pain, narcolepsy, and kidney stone. PAST SURGICAL HISTORY: Leg surgery, lap band with removal, left foot neuroma removed, PCI and stenting in January 2015 to the LAD, PCI and stenting of the right RCA in May 2015, right Achilles tendon repair, breast surgery, twice, and gastric bypass surgery. FAMILY HISTORY: Mother and grandmother had diabetes. Sister had cerebrovascular accident. SOCIAL HISTORY: She is . She stops smoking. She denies use of alcohol or illicit drugs. She is a retired dental hygienist. ADMITTING DIAGNOSES: 1. Chest pain. 2. Type 2 diabetes mellitus. 3. Hypertension. 4. Acute kidney injury. 5. Hyperlipidemia. 6. Obesity with BMI 32.6. DISCHARGE DIAGNOSES: 1. Coronary artery disease with acute unstable angina. 2. History of myocardial infarction, status post PCI twice. 3. Controlled type 2 diabetes mellitus with hemoglobin A1c 7.5%. 4. Abnormal EKG. 5. Obstructive sleep apnea. 6. Gastroesophageal reflux disease. 7. Obesity with BMI 32.6. LABORATORY DATA: The patient's lipids today, triglycerides 1120, cholesterol 304, and HDL 36. Her TSH was 1.630. All troponin Is within normal limits x4. Today, her sodium was 139, potassium 4.1, chloride 108, CO2 of 19, BUN 32, creatinine 1.29, estimated GFR 41, and glucose 190. Fingerstick blood glucose 213. Hemoglobin A1c 7.5%. Calcium 9.4, total bilirubin 0.3, AST 13, ALT 7, alkaline phosphatase 66, total protein 6.3, and albumin 3.9. WBC 5.79, hemoglobin 10.7, hematocrit 32.5, platelets 188, and neutrophils 73.4. Coronavirus PCR was not detected. IMAGING DATA: Chest x-ray showed no acute thoracic abnormality. A 12-lead EKG did show normal sinus rhythm with a ventricular rate of 74 today. Admitting 12-lead EKG showed sinus tachycardia with first-degree AV block, ventricular rate 102. The patient underwent cardiac catheterization and percutaneous coronary intervention. Left main coronary artery had minimal luminal irregularities. Circumflex coronary artery was nondominant with approximately 70% more distal stenosis past onset of large obtuse marginal branch. LAD artery had approximately 85% stenosis just proximal to the previously placed stent to the mid section, there is approximately 40% stenosis as well as a minimal luminal irregularities in the mid distal portions of the LAD artery. PLAN: The patient's plan is to continue aspirin and Plavix therapy as well as cardiac rehabilitation and aggressive risk factor modification. She can continue on her [employer] diet. Activity level as tolerated. The patient states her shortness of breath is improved. PHYSICAL EXAMINATION: GENERAL: She is no acute distress. LUNGS: Clear to auscultation. Respiratory pattern, even and unlabored. HEENT: EOMI. NECK: Supple. No lymphadenopathy, thyromegaly, or JVD. CARDIOVASCULAR: Regular rate and rhythm without murmur. Normal saline infusing at 100 mL an hour to a peripheral IV. ABDOMEN: Bowel sounds positive. Soft, obese. No obvious distention. EXTREMITIES: No pitting edema. No clubbing, cyanosis, or signs of DVT. NEUROLOGICAL: GCS 15. Nonfocal. FOLLOWUP: The patient to follow up with her PCP, Dr. Jeannie Whaley in 1-2 weeks. Follow up with Dr. Abreu as directed. The patient is to call his office to set up an appointment. DISCHARGE MEDICATIONS: The patient will continue with most of her home medications. New prescriptions include Lipitor 20 mg at bedtime, carvedilol will be increased from 12.5-25 mg b.i.d., clonidine 0.1 mg p.o. every 6 hours p.r.n. for elevated blood pressure greater than 150, Colace 100 mg b.i.d., fenofibrate 145 mg tablet daily. Dictated by Daniel Fox, DIGITAL MARKETING APPRENTICE MD TEO Salcedo/MODL /[id number]
== END 2020-06-09 15:30 | disposition home or self-care (01) | DRG 247 ==
LOC: ER 19:50 → ERHOLD 21:19 → IMCU 06-08 16:25 → OBSVTOIN 06-08 16:27
PROVIDERS: ADMIT Internal Medicine; ATTEND Internal Medicine
PROC: 027034Z Dilation of Coronary Artery, One Artery with Drug-eluting Intraluminal Device, Percutaneous Approach (ICD-10-PCS; principal; 2020-06-08)
PROC: 4A023N7 Measurement of Cardiac Sampling and Pressure, Left Heart, Percutaneous Approach (ICD-10-PCS; 2020-06-08)
PROC: B2111ZZ Fluoroscopy of Multiple Coronary Arteries using Low Osmolar Contrast (ICD-10-PCS; 2020-06-08)
DX: I25.110 Atherosclerotic heart disease of native coronary artery with unstable angina pectoris (principal); I24.9 Acute ischemic heart disease, unspecified; Z95.5 Presence of coronary angioplasty implant and graft; I10 Essential (primary) hypertension; E11.9 Type 2 diabetes mellitus without complications; E78.5 Hyperlipidemia, unspecified; I25.2 Old myocardial infarction; G47.33 Obstructive sleep apnea (adult) (pediatric); K21.9 Gastro-esophageal reflux disease without esophagitis; E66.9 Obesity, unspecified; Z68.32 Body mass index [BMI] 32.0-32.9, adult; M10.9 Gout, unspecified; Z98.84 Bariatric surgery status; G47.419 Narcolepsy without cataplexy
CPT/HCPCS: 36415; 71045; 80053; 80061; 82550; 82553; 82948; 83036; 83735; 83880; 84100; 84443; 84484; 85025; 85610; 85730; 92928; 93005; 93306; 93458; 99152; 99153; 99284; C1725; C1760; C1766; C1769; C1876; C1887; G0378; J0360; J0583; J1644; J1650; J1817; J2001; J2250; J2405; J2550; J3010; J7030; Q9967; U0002

== ENCOUNTER 2021-05-04 10:49 | Inpatient (IN) | payer MEDICARE, OTHER ==
[2021-05-04] VITALS (14 sets, daily range): BP systolic 95–173; BP diastolic 47–90
[~2021-05-04] VITALS: Ht 304.8 cm; Wt 76.2 kg
[~2021-05-04 10:49] MED LIST changes: +ALLEGRA ALLERGY60 MG PO; +CARVEDILOL12.5 MG PO; +CATAPRES0.1 MG PO; +COLACE100 MG PO; +COREG12.5 MG PO; +IBUPROFEN200 MG PO; +NOVOLIN N100 UNIT/1 SQ; +NOVOLIN R100 UNIT/1 SQ; +[UNRECOGNIZED DRUG - OTHER] PO
[2021-05-04] MEDS ORDERED: ONDANSETRON HCL INJ 2MG/ML 2ML 2 MG/ML VIAL IV PRN (11:15)
[2021-05-04] MEDS ORDERED: MORPHINE SULFATE INJ 2 MG/ML SYR IV PRN (11:15)
[2021-05-04] MEDS ORDERED: MIDAZOLAM HCL 2 MG/2 ML VIAL ONE (11:20)
[2021-05-04] MEDS ORDERED: FENTANYL CITRATE/PF 100MCG/2 ML INJ ONE (11:20)
[2021-05-04] MEDS ORDERED: LIDOCAINE HCL 2% LOCAL 20 ML VIAL ONE (11:21)
[2021-05-04] MEDS ORDERED: IOPAMIDOL 370 MG/ML 200 ML INFUS..BTL INJ ONE (11:21)
[2021-05-04] MEDS ORDERED: HEPARIN SOD/SOD CHLORIDE 2,000 ML ONE (11:21)
[2021-05-04] MEDS ORDERED: SODIUM CHLORIDE 0.9% 1000ML 1,000 ML ONE (11:21)
[2021-05-04] MEDS ORDERED: NITROGLYCERIN/D5W 200 MCG/ML 250 ML ONE (11:22)
[2021-05-04] MEDS ORDERED: BIVALRIUDIN 250 MG/VIAL VIAL IV ONE (11:36)
[2021-05-04] MEDS ORDERED: SODIUM CHLORIDE 0.9% 50ML 50 ML ONE (11:37)
[2021-05-04 11:46] LABS: HEMOGLOBIN 12.4 g/dL (12.0-16.0)
[2021-05-04 11:47] LABS: BASOPHILS % 0.3 % (0.0-1.0); EOSINOPHILS # (AUTO) 0.1 (0.0-0.4); EOSINOPHILS % 1.1 % (0.0-6.0); HEMATOCRIT 38.8 % (34.2-44.1); LYMPHOCYTES # (AUTO) 0.7 (1.0-3.2); LYMPHOCYTES % 12.1 % (18.0-39.1); MEAN CORPUSCULAR HEMOGLOBIN 28.2 pg (28-32); MEAN CORPUSCULAR VOLUME 88.2 fL (81-99); MONOCYTES # (AUTO) 0.4 (0.2-0.8); MONOCYTES % 6.7 % (4.4-11.3); NEUTROPHILS # (AUTO) 4.8 (2.1-6.9); NEUTROPHILS % 79.1 % (38.7-80.0); PLATELET COUNT 204 x10e3/uL (140-360); RED CELL DISTRIBUTION WIDTH 13.6 % (11.7-14.4)
[2021-05-04] MEDS ORDERED: CLOPIDOGREL BISULFATE 75 MG TAB ONE (11:58)
[2021-05-04] MEDS ORDERED: ASPIRIN 325 MG TAB ONE (11:59)
[2021-05-04 12:05] LABS: INR 0.89; PARTIAL THROMBOPLASTIN TIME 29.2 seconds (23.8-35.5); PROTHROMBIN TIME 12.2 seconds (11.9-14.5)
[2021-05-04] MEDS ORDERED: CLONIDINE HCL 0.1 MG TAB ONE (12:15)
[2021-05-04] MEDS ORDERED: DIPHENHYDRAMINE HCL 25 MG CAP ONE (13:09)
[2021-05-04] MEDS ORDERED: DIPHENHYDRAMINE HCL 25 MG CAP PO PRN (13:15)
[2021-05-04 13:37] LABS: ANION GAP 18.8 mmol/L (8-16); CREATININE, SERUM 1.5 mg/dL (0.57-1.11); POTASSIUM 4.8 mmol/L (3.5-5.1)
[2021-05-04 13:38] LABS: ALBUMIN 4.6 g/dL (3.5-5.0); ALBUMIN/GLOBULIN RATIO 1.5 (0.8-2.0); CALCIUM 10.7 mg/dL (8.4-10.2); CREATINE KINASE MB 4.8 ng/mL (0-5.0); MAGNESIUM 1.4 MG/DL (1.3-2.1)
[2021-05-04] MEDS ORDERED: SODIUM CHLORIDE 0.9% 1000ML 1,000 ML IV SCH (16:30)
[2021-05-04] MEDS ORDERED: HYDROCODONE/APAP 5MG-325MG TAB PO PRN (16:30)
[2021-05-04] MEDS ORDERED: CLONIDINE HCL 0.1 MG TAB PO PRN (16:45)
[2021-05-04] MEDS ORDERED: NPH, HUMAN INSULIN ISOPHANE 100 UNIT/1 ML 3ML VIAL SQ SCH (17:00)
[2021-05-04] MEDS: CARVEDILOL 12.5 MG TAB PO SCH (18:16)
[2021-05-04] MEDS: DOCUSATE SODIUM 100 MG CAP PO SCH (18:16)
[2021-05-04 18:17] LABS: CREATINE KINASE MB 7.3 ng/mL (0-5.0)
[2021-05-04] MEDS: NPH, HUMAN INSULIN ISOPHANE 100 UNIT/1 ML 3ML VIAL SQ SCH (20:14)
[2021-05-04] MEDS ORDERED: ATORVASTATIN 20 MG TAB PO SCH (21:00)
[2021-05-05 04:27] VITALS: BP 138/70
[2021-05-05 05:10] LABS: BASOPHILS # (AUTO) 0.1 (0.0-0.1); BASOPHILS % 1.1 % (0.0-1.0); EOSINOPHILS # (AUTO) 0.1 (0.0-0.4); EOSINOPHILS % 2.7 % (0.0-6.0); HEMATOCRIT 32.9 % (34.2-44.1); HEMOGLOBIN 10.6 g/dL (12.0-16.0); LYMPHOCYTES # (AUTO) 0.8 (1.0-3.2); LYMPHOCYTES % 16.6 % (18.0-39.1); MEAN CORPUSCULAR HEMOGLOBIN 28.3 pg (28-32); MEAN CORPUSCULAR HGB CONC 32.2 g/dL (31-35); MONOCYTES # (AUTO) 0.5 (0.2-0.8); MONOCYTES % 10.5 % (4.4-11.3); NEUTROPHILS # (AUTO) 3.3 (2.1-6.9); NEUTROPHILS % 68.3 % (38.7-80.0); PLATELET COUNT 172 x10e3/uL (140-360); RED BLOOD COUNT 3.74 x10e6/uL (3.6-5.1); RED CELL DISTRIBUTION WIDTH 13.7 % (11.7-14.4)
[2021-05-05 05:39] LABS: ALANINE AMINOTRANSFERASE 7 IU/L (0-55); ALBUMIN 4.1 g/dL (3.5-5.0); ALBUMIN/GLOBULIN RATIO 1.6 (0.8-2.0); ALKALINE PHOSPHATASE 54 IU/L (40-150); ANION GAP 15.3 mmol/L (8-16); BLOOD UREA NITROGEN 48 mg/dL (7-26); BUN/CREATININE RATIO 32 (6-25); CARBON DIOXIDE 21 mmol/L (22-29); CHLORIDE 108 mmol/L (98-107); CHOL/HDL RATIO 5.6 (3.0-3.6); CHOLESTEROL 179 MD/DL (0-199); CREATININE, SERUM 1.52 mg/dL (0.57-1.11); EST GLOMERULAR FILTRATION RATE 34 ML/MIN (60-); GLUCOSE 170 mg/dL (74-118); HDL CHOLESTEROL 32 MG/DL (40-60); POTASSIUM 4.3 mmol/L (3.5-5.1); SODIUM 140 mmol/L (136-145); TRIGLYCERIDES 416 MG/DL (0-149)
[2021-05-05 07:03] LABS: CREATINE KINASE MB 9.9 ng/mL (0-5.0)
[2021-05-05] MEDS ORDERED: NPH, HUMAN INSULIN ISOPHANE 100 UNIT/1 ML 3ML VIAL SQ SCH (07:30)
[2021-05-05 07:37] VITALS: BP 138/70
[2021-05-05] MEDS: INSULIN REGULAR, HUMAN 100 UNIT/1 ML SQ SCH ×2 (08:28→12:20)
[2021-05-05] MEDS: NPH, HUMAN INSULIN ISOPHANE 100 UNIT/1 ML 3ML VIAL SQ SCH (08:36)
[2021-05-05 08:38] VITALS: BP 168/66
[2021-05-05] MEDS ORDERED: FENOFIBRATE 145 MG TAB PO SCH (09:00)
[2021-05-05] MEDS ORDERED: CLOPIDOGREL BISULFATE 75 MG TAB PO SCH (09:00)
[2021-05-05] MEDS ORDERED: LORATADINE 10 MG TAB PO SCH (09:00)
[2021-05-05] MEDS ORDERED: ASPIRIN 81 MG CHEW TAB PO SCH (09:00)
[2021-05-05] MEDS: DOCUSATE SODIUM 100 MG CAP PO SCH (09:01)
[2021-05-05] MEDS: CARVEDILOL 12.5 MG TAB PO SCH (09:01)
[2021-05-05 12:03] VITALS: BP 145/71
== END 2021-05-05 12:50 | disposition home or self-care (01) | DRG 247 ==
LOC: ER 11:11 → CATH LAB V 11:18 → MED/SURG3 15:31 → OBSVTOIN 16:30
PROVIDERS: ADMIT Internal Medicine Cardiovascular Disease; ATTEND Internal Medicine Cardiovascular Disease
PROC: 027135Z Dilation of Coronary Artery, Two Arteries with Two Drug-eluting Intraluminal Devices, Percutaneous Approach (ICD-10-PCS; principal; 2021-05-04)
PROC: 4A023N7 Measurement of Cardiac Sampling and Pressure, Left Heart, Percutaneous Approach (ICD-10-PCS; 2021-05-04)
PROC: B2111ZZ Fluoroscopy of Multiple Coronary Arteries using Low Osmolar Contrast (ICD-10-PCS; 2021-05-04)
PROC: B2151ZZ Fluoroscopy of Left Heart using Low Osmolar Contrast (ICD-10-PCS; 2021-05-04)
DX: I21.4 Non-ST elevation (NSTEMI) myocardial infarction (principal); I25.10 Atherosclerotic heart disease of native coronary artery without angina pectoris; I13.10 Hypertensive heart and chronic kidney disease without heart failure, with stage 1 through stage 4 chronic kidney disease, or unspecified chronic kidney disease; N18.30 Chronic kidney disease, stage 3 unspecified; K21.9 Gastro-esophageal reflux disease without esophagitis; E78.5 Hyperlipidemia, unspecified; E78.00 Pure hypercholesterolemia, unspecified; G47.33 Obstructive sleep apnea (adult) (pediatric); E66.9 Obesity, unspecified; E11.22 Type 2 diabetes mellitus with diabetic chronic kidney disease; I25.2 Old myocardial infarction; Z95.5 Presence of coronary angioplasty implant and graft; Z98.84 Bariatric surgery status; Z83.3 Family history of diabetes mellitus; Z82.49 Family history of ischemic heart disease and other diseases of the circulatory system
CPT/HCPCS: 36415; 80053; 80061; 82550; 82553; 82948; 83735; 83880; 84484; 85025; 85610; 85730; 92928; 92929; 93005; 93458; 99152; 99153; 99284; C1725; C1760; C1769; C1876; C1887; C9600; C9601; J0583; J1817; J2001; J2250; J3010; J7030; Q9967; U0002

== ENCOUNTER 2022-02-07 18:02 | Inpatient (IN) | payer MEDICARE, OTHER ==
[~2022-02-07] VITALS: Ht 152.4 cm; Wt 78.5 kg
[2022-02-07] MEDS ORDERED: KETOROLAC TROMETHAMINE 30 MG/ML VIAL IV STA (18:43)
[2022-02-07 19:05] LABS: BASOPHILS % 0.4 % (0.0-1.0); EOSINOPHILS # (AUTO) 0.1 (0.0-0.4); EOSINOPHILS % 1.3 % (0.0-6.0); HEMOGLOBIN 12.9 g/dL (12.0-16.0); LYMPHOCYTES # (AUTO) 0.7 (1.0-3.2); MEAN CORPUSCULAR HEMOGLOBIN 28.1 pg (28-32); MEAN CORPUSCULAR HGB CONC 32.3 g/dL (31-35); MEAN CORPUSCULAR VOLUME 87.1 fL (81-99); MONOCYTES # (AUTO) 0.9 (0.2-0.8); NEUTROPHILS # (AUTO) 8.4 (2.1-6.9); NEUTROPHILS % 81.7 % (38.7-80.0); PLATELET COUNT 211 x10e3/uL (140-360); RED BLOOD COUNT 4.59 x10e6/uL (3.6-5.1); RED CELL DISTRIBUTION WIDTH 13.5 % (11.7-14.4)
[2022-02-07 19:06] LABS: CLARITY,URINE CLEAR (CLEAR); COLOR,URINE YELLOW (YELLOW); LEUKOCYTE ESTERASE ,URINE NEGATIVE (NEGATIVE); NITRITE,URINE NEGATIVE (NEGATIVE); PROTEIN,URINE DIPSTICK 2+ (NEGATIVE)
[2022-02-07 19:07] LABS: KETONES,URINE NEGATIVE (NEGATIVE); URINE UROBILINOGEN 0.2 mg/dL (0.2 - 1)
[2022-02-07 19:20] LABS: EPITHELIAL CELLS,URINE FEW /LPF; RBC,URINE 0-5 /HPF (0-5)
[2022-02-07 19:23] LABS: ALANINE AMINOTRANSFERASE 10 IU/L (0-55); ALBUMIN 4.1 g/dL (3.5-5.0); ALBUMIN/GLOBULIN RATIO 1.2 (0.8-2.0); ALKALINE PHOSPHATASE 70 IU/L (40-150); ANION GAP 15.6 mmol/L (8-16); BLOOD UREA NITROGEN 37 mg/dL (7-26); BUN/CREATININE RATIO 22 (6-25); CALCIUM 9.9 mg/dL (8.4-10.2); CARBON DIOXIDE 22 mmol/L (22-29); CHLORIDE 107 mmol/L (98-107); CREATINE KINASE 92 IU/L (29-168); CREATININE, SERUM 1.69 mg/dL (0.57-1.11); GLUCOSE 130 mg/dL (74-118); POTASSIUM 4.6 mmol/L (3.5-5.1); SODIUM 140 mmol/L (136-145)
[2022-02-07] MEDS: ONDANSETRON HCL INJ 2MG/ML 2ML 2 MG/ML VIAL IV PRN (19:26)
[2022-02-07] MEDS ORDERED: SODIUM CHLORIDE 0.9% 1000ML 1,000 ML IV ONE (19:30)
[2022-02-07] MEDS ORDERED: ONDANSETRON HCL INJ 2MG/ML 2ML 2 MG/ML VIAL IV PRN (21:15)
[2022-02-07] MEDS: SODIUM CHLORIDE 0.9% 1000ML 1,000 ML IV SCH (21:45)
[2022-02-07 23:08] VITALS: BP 147/66
[2022-02-07 23:13] VITALS: BP 147/66
[2022-02-07] MEDS ORDERED: TRESIBA100 UNIT/1 SC (23:22)
[2022-02-07 23:26] VITALS: BP 147/66
[2022-02-08] MEDS: ONDANSETRON HCL INJ 2MG/ML 2ML 2 MG/ML VIAL IV PRN ×3 (01:17→21:55)
[2022-02-08 05:35] LABS: BASOPHILS % 0.4 % (0.0-1.0); EOSINOPHILS # (AUTO) 0.2 (0.0-0.4); EOSINOPHILS % 2.2 % (0.0-6.0); HEMATOCRIT 33.3 % (34.2-44.1); HEMOGLOBIN 10.5 g/dL (12.0-16.0); LYMPHOCYTES % 12.4 % (18.0-39.1); MEAN CORPUSCULAR HEMOGLOBIN 28.5 pg (28-32); MEAN CORPUSCULAR HGB CONC 31.5 g/dL (31-35); MEAN CORPUSCULAR VOLUME 90.2 fL (81-99); MONOCYTES # (AUTO) 0.8 (0.2-0.8); NEUTROPHILS # (AUTO) 6.2 (2.1-6.9); NEUTROPHILS % 74.6 % (38.7-80.0); PLATELET COUNT 170 x10e3/uL (140-360); RED BLOOD COUNT 3.69 x10e6/uL (3.6-5.1); RED CELL DISTRIBUTION WIDTH 13.8 % (11.7-14.4)
[2022-02-08 05:53] LABS: ALBUMIN 3.2 g/dL (3.5-5.0); ALBUMIN/GLOBULIN RATIO 1.1 (0.8-2.0); ANION GAP 12.4 mmol/L (8-16); CALCIUM 8.5 mg/dL (8.4-10.2); CREATININE, SERUM 1.92 mg/dL (0.57-1.11); POTASSIUM 4.4 mmol/L (3.5-5.1)
[2022-02-08 06:09] VITALS: BP 143/70
[2022-02-08] MEDS: Morphine 4mg Syringe 4 MG/ML INJ IV PRN ×2 (07:50→21:55)
[2022-02-08] MEDS: SODIUM CHLORIDE 0.9% 1000ML 1,000 ML IV SCH ×3 (07:55→20:35)
[2022-02-08 08:23] VITALS: BP 164/71
[2022-02-08] MEDS ORDERED: DEXTROSE 50% SYRINGE 50 ML IV PRN (13:30)
[2022-02-08 16:14] VITALS: BP 167/77
[2022-02-08] MEDS: INSULIN LISPRO 100 UNIT/1 ML 3ML VIAL SQ SCH ×2 (16:45→20:49)
[2022-02-08] MEDS: CARVEDILOL 12.5 MG TAB PO SCH (17:45)
[2022-02-08 20:00] VITALS: BP 142/63
[2022-02-08] MEDS: ATORVASTATIN 20 MG TAB PO SCH (20:30)
[2022-02-08 20:46] VITALS: BP 142/63
[2022-02-08] MEDS ORDERED: ACETAMINOPHEN 325 MG TAB PO PRN (23:45)
[2022-02-08] MEDS: DOCUSATE SODIUM 100 MG CAP PO SCH (23:57)
[2022-02-09] VITALS (9 sets, daily range): BP systolic 127–171; BP diastolic 60–81
[2022-02-09] MEDS: SODIUM CHLORIDE 0.9% 1000ML 1,000 ML IV SCH ×2 (05:00→23:15)
[2022-02-09 05:02] LABS: BASOPHILS % 0.3 % (0.0-1.0); EOSINOPHILS # (AUTO) 0.2 (0.0-0.4); EOSINOPHILS % 2.5 % (0.0-6.0); HEMATOCRIT 31.2 % (34.2-44.1); HEMOGLOBIN 9.7 g/dL (12.0-16.0); LYMPHOCYTES % 10.9 % (18.0-39.1); MEAN CORPUSCULAR HEMOGLOBIN 28.3 pg (28-32); MEAN CORPUSCULAR HGB CONC 31.1 g/dL (31-35); MONOCYTES # (AUTO) 1.2 (0.2-0.8); MONOCYTES % 13.2 % (4.4-11.3); NEUTROPHILS # (AUTO) 6.4 (2.1-6.9); NEUTROPHILS % 72.5 % (38.7-80.0); PLATELET COUNT 146 x10e3/uL (140-360); RED BLOOD COUNT 3.43 x10e6/uL (3.6-5.1); RED CELL DISTRIBUTION WIDTH 13.9 % (11.7-14.4)
[2022-02-09] MEDS: KETOROLAC TROMETHAMINE 30 MG/ML VIAL IV PRN ×2 (05:12→15:47)
[2022-02-09] MEDS: ONDANSETRON HCL INJ 2MG/ML 2ML 2 MG/ML VIAL IV PRN ×2 (05:12→15:47)
[2022-02-09 05:22] LABS: ANION GAP 11.5 mmol/L (8-16); CALCIUM 8.2 mg/dL (8.4-10.2); CREATININE, SERUM 2.28 mg/dL (0.57-1.11); POTASSIUM 4.5 mmol/L (3.5-5.1)
[2022-02-09] MEDS: INSULIN LISPRO 100 UNIT/1 ML 3ML VIAL SQ SCH ×4 (07:30→21:00)
[2022-02-09] MEDS ORDERED: IRBESARTAN 150 MG TAB PO SCH (09:00)
[2022-02-09] MEDS ORDERED: NON-FORMULARY MEDICATION (Irbesartan 300 MG) PO SCH (09:00)
[2022-02-09] MEDS: DOCUSATE SODIUM 100 MG CAP PO SCH (12:24)
[2022-02-09] MEDS: CARVEDILOL 12.5 MG TAB PO SCH ×2 (12:24→17:15)
[2022-02-09 17:08] LABS: CALCIUM 8.2 mg/dL (8.4-10.2); CREATININE, SERUM 2.18 mg/dL (0.57-1.11)
[2022-02-09] MEDS: ATORVASTATIN 20 MG TAB PO SCH (21:59)
[2022-02-10] VITALS (18 sets, daily range): BP systolic 138–186; BP diastolic 67–87
[2022-02-10] MEDS: Morphine 4mg Syringe 4 MG/ML INJ IV PRN ×4 (00:57→21:06)
[2022-02-10] MEDS: ONDANSETRON HCL INJ 2MG/ML 2ML 2 MG/ML VIAL IV PRN ×4 (00:57→21:06)
[2022-02-10 04:54] LABS: BASOPHILS % 0.2 % (0.0-1.0); EOSINOPHILS # (AUTO) 0.1 (0.0-0.4); EOSINOPHILS % 1.1 % (0.0-6.0); HEMOGLOBIN 10.4 g/dL (12.0-16.0); LYMPHOCYTES # (AUTO) 0.5 (1.0-3.2); LYMPHOCYTES % 5.2 % (18.0-39.1); MEAN CORPUSCULAR HEMOGLOBIN 27.9 pg (28-32); MEAN CORPUSCULAR HGB CONC 31.5 g/dL (31-35); MEAN CORPUSCULAR VOLUME 88.5 fL (81-99); MONOCYTES # (AUTO) 0.7 (0.2-0.8); MONOCYTES % 7.8 % (4.4-11.3); NEUTROPHILS # (AUTO) 7.6 (2.1-6.9); NEUTROPHILS % 85.4 % (38.7-80.0); PLATELET COUNT 155 x10e3/uL (140-360); RED BLOOD COUNT 3.73 x10e6/uL (3.6-5.1); RED CELL DISTRIBUTION WIDTH 13.7 % (11.7-14.4)
[2022-02-10 05:23] LABS: ALBUMIN 3.1 g/dL (3.5-5.0); ALBUMIN/GLOBULIN RATIO 0.9 (0.8-2.0); ANION GAP 14.1 mmol/L (8-16); CALCIUM 8.8 mg/dL (8.4-10.2); CREATININE, SERUM 2.09 mg/dL (0.57-1.11); MAGNESIUM 1.7 MG/DL (1.3-2.1); PHOSPHORUS 2.5 MG/DL (2.3-4.7); POTASSIUM 5.1 mmol/L (3.5-5.1)
[2022-02-10 05:31] LABS: THYROID STIMULATING HORMONE 2.101 uIU/mL (0.350-4.940)
[2022-02-10] MEDS ORDERED: IOPAMIDOL 610MG/1ML 300 MG/ML VIAL IV ONE (05:45)
[2022-02-10] MEDS: INSULIN LISPRO 100 UNIT/1 ML 3ML VIAL SQ SCH ×4 (07:30→22:29)
[2022-02-10] MEDS ORDERED: SOD POLYSTYRENE SULFONATE SUSP 15 GM/60 ML BTL PR ONE (08:00)
[2022-02-10] MEDS: DOCUSATE SODIUM 100 MG CAP PO SCH (08:19)
[2022-02-10] MEDS: CARVEDILOL 12.5 MG TAB PO SCH ×2 (08:20→18:17)
[2022-02-10] MEDS ORDERED: INSULIN DEGLUDEC 70 UNIT SC SCH (09:00)
[2022-02-10] MEDS ORDERED: FENTANYL CITRATE/PF 100MCG/2 ML INJ ONE (10:00)
[2022-02-10] MEDS ORDERED: HEPARIN SOD (PORCINE) 1000 UNIT/ML 30ML ONE (10:00)
[2022-02-10] MEDS ORDERED: HEPARIN SOD/SOD CHLORIDE 2,000 ML ONE (10:00)
[2022-02-10] MEDS ORDERED: MIDAZOLAM HCL 2 MG/2 ML VIAL ONE (10:00)
[2022-02-10] MEDS ORDERED: VERAPAMIL HCL 2.5 MG/ML 2 ML VIAL ONE (10:00)
[2022-02-10] MEDS ORDERED: IOPAMIDOL 370 MG/ML 100 ML INFUS..BTL INJ ONE (10:01)
[2022-02-10] MEDS ORDERED: LIDOCAINE HCL 1% LOCAL INJ 20 ML VIAL ONE (10:01)
[2022-02-10] MEDS ORDERED: NITROGLYCERIN/D5W 200 MCG/ML 250 ML ONE (10:01)
[2022-02-10] MEDS ORDERED: SODIUM CHLORIDE 0.9% 1000ML 1,000 ML ONE (10:01)
[2022-02-10] MEDS ORDERED: HYDRALAZINE HCL 20 MG/ML VIAL ONE (10:36)
[2022-02-10] MEDS: ACETYLCYSTEINE 200 MG/ML 4ML VIAL PO SCH (18:17)
[2022-02-10] MEDS: SODIUM CHLORIDE 0.9% 1000ML 1,000 ML IV SCH ×2 (18:17→19:15)
[2022-02-10] MEDS: ATORVASTATIN 20 MG TAB PO SCH (21:05)
[2022-02-11 04:30] VITALS: BP 165/79
[2022-02-11] MEDS: Morphine 4mg Syringe 4 MG/ML INJ IV PRN ×2 (05:49→13:50)
[2022-02-11] MEDS: ONDANSETRON HCL INJ 2MG/ML 2ML 2 MG/ML VIAL IV PRN ×2 (05:50→13:50)
[2022-02-11 06:25] LABS: ALBUMIN 2.8 g/dL (3.5-5.0); ALBUMIN/GLOBULIN RATIO 0.8 (0.8-2.0); ANION GAP 14.4 mmol/L (8-16); CALCIUM 8.3 mg/dL (8.4-10.2); CREATININE, SERUM 1.96 mg/dL (0.57-1.11); MAGNESIUM 1.6 MG/DL (1.3-2.1); POTASSIUM 4.4 mmol/L (3.5-5.1)
[2022-02-11 07:03] LABS: BASOPHILS # (AUTO) 0.1 (0.0-0.1); BASOPHILS % 0.6 % (0.0-1.0); EOSINOPHILS # (AUTO) 0.1 (0.0-0.4); EOSINOPHILS % 1.4 % (0.0-6.0); HEMATOCRIT 28.9 % (34.2-44.1); LYMPHOCYTES # (AUTO) 0.5 (1.0-3.2); LYMPHOCYTES % 5.7 % (18.0-39.1); MEAN CORPUSCULAR HEMOGLOBIN 28.1 pg (28-32); MEAN CORPUSCULAR HGB CONC 31.1 g/dL (31-35); MEAN CORPUSCULAR VOLUME 90.3 fL (81-99); MONOCYTES # (AUTO) 0.9 (0.2-0.8); NEUTROPHILS # (AUTO) 7.4 (2.1-6.9); NEUTROPHILS % 81.9 % (38.7-80.0); PLATELET COUNT 161 x10e3/uL (140-360)
[2022-02-11] MEDS: INSULIN LISPRO 100 UNIT/1 ML 3ML VIAL SQ SCH ×3 (07:30→16:26)
[2022-02-11] MEDS ORDERED: IOPAMIDOL 610MG/1ML 300 MG/ML VIAL IV ONE (07:50)
[2022-02-11 08:00] VITALS: BP 167/70
[2022-02-11] MEDS: DOCUSATE SODIUM 100 MG CAP PO SCH (09:00)
[2022-02-11 11:00] VITALS: BP 176/87
[2022-02-11] MEDS: ACETYLCYSTEINE 200 MG/ML 4ML VIAL PO SCH (11:00)
[2022-02-11] MEDS: CARVEDILOL 12.5 MG TAB PO SCH (11:59)
[2022-02-11 12:01] VITALS: BP 166/80
[2022-02-11] MEDS ORDERED: FENTANYL CITRATE/PF 100MCG/2 ML INJ ONE (13:21)
[2022-02-11] MEDS ORDERED: MIDAZOLAM HCL 2 MG/2 ML VIAL ONE (13:21)
[2022-02-11] MEDS ORDERED: EPHEDRINE SULFATE INJ 50 MG/ML VIAL ONE (14:44)
[2022-02-11] MEDS ORDERED: DEXAMETHASONE SOD PHOS INJ 4 MG/ML SDV ONE (14:44)
[2022-02-11] MEDS ORDERED: SEVOFLURANE INHAL SOLN 250 ML PEN BTL ONE (14:44)
[2022-02-11] MEDS ORDERED: LIDOCAINE HCL 2% LOCAL INJ 5 ML SDV VIAL INJ ONE (14:44)
[2022-02-11] MEDS ORDERED: POVIDONE IODINE 0.05% 0.05 % ML PO ONE (14:44)
[2022-02-11] MEDS ORDERED: ONDANSETRON HCL INJ 2MG/ML 2ML 2 MG/ML VIAL ONE (14:44)
[2022-02-11] MEDS ORDERED: PROPOFOL IV EMULSION 10 MG/ML 20 ML VIAL ONE (14:44)
[2022-02-11] MEDS ORDERED: KEFLEX125 MG/5 M PO ×3 (16:00→16:10)
[2022-02-11] MEDS ORDERED: CEPHALEXIN500 MG PO (16:11)
== END 2022-02-11 16:45 | disposition home or self-care (01) | DRG 660 ==
LOC: ER 18:15 → ERHOLD 21:17 → MED/SURG2 22:30
PROVIDERS: ADMIT Internal Medicine; ATTEND Internal Medicine
PROC: 4A023N7 Measurement of Cardiac Sampling and Pressure, Left Heart, Percutaneous Approach (ICD-10-PCS; principal; 2022-02-07)
PROC: B2111ZZ Fluoroscopy of Multiple Coronary Arteries using Low Osmolar Contrast (ICD-10-PCS; 2022-02-07)
PROC: B2151ZZ Fluoroscopy of Left Heart using Low Osmolar Contrast (ICD-10-PCS; 2022-02-07)
PROC: 0T778DZ Dilation of Left Ureter with Intraluminal Device, Via Natural or Artificial Opening Endoscopic (ICD-10-PCS; 2022-02-11)
PROC: BT1F1ZZ Fluoroscopy of Left Kidney, Ureter and Bladder using Low Osmolar Contrast (ICD-10-PCS; 2022-02-11)
PROC: 0TF78ZZ Fragmentation in Left Ureter, Via Natural or Artificial Opening Endoscopic (ICD-10-PCS; 2022-02-11)
DX: N13.6 Pyonephrosis (principal); I24.9 Acute ischemic heart disease, unspecified; N17.9 Acute kidney failure, unspecified; E13.69 Other specified diabetes mellitus with other specified complication; I25.82 Chronic total occlusion of coronary artery; E66.9 Obesity, unspecified; E11.22 Type 2 diabetes mellitus with diabetic chronic kidney disease; I13.10 Hypertensive heart and chronic kidney disease without heart failure, with stage 1 through stage 4 chronic kidney disease, or unspecified chronic kidney disease; I25.10 Atherosclerotic heart disease of native coronary artery without angina pectoris; E78.5 Hyperlipidemia, unspecified; K21.9 Gastro-esophageal reflux disease without esophagitis; Z68.33 Body mass index [BMI] 33.0-33.9, adult; I25.2 Old myocardial infarction; Z95.5 Presence of coronary angioplasty implant and graft; Z88.5 Allergy status to narcotic agent; Z91.19 Patient's noncompliance with other medical treatment and regimen; N18.32 Chronic kidney disease, stage 3b; E87.5 Hyperkalemia; G47.33 Obstructive sleep apnea (adult) (pediatric); Z83.3 Family history of diabetes mellitus; Z82.49 Family history of ischemic heart disease and other diseases of the circulatory system; Z79.82 Long term (current) use of aspirin; Z79.4 Long term (current) use of insulin
CPT/HCPCS: 36415; 50590; 74018; 74176; 76770; 80048; 80053; 81001; 82550; 82553; 82948; 83036; 83735; 84100; 84443; 84484; 85025; 87086; 93005; 93458; 96361; 99152; 99284; C1766; C1769; C1887; C2617; J0360; J0696; J1100; J1644; J1885; J2001; J2250; J2270; J2405; J3010; J7030; Q9967